=== PATIENT | female | born 1955 | race Caucasian/White ===

== ENCOUNTER 2019-06-21 08:41 | Emergency (ER) | payer OTHER, SELFPAY ==
--- NOTE | ~2019-06-21 | XR_ITS ---
XR chest 2V 06/21/2019 09:13 Indication: Chest tightness for 2 weeks Procedure: 2 view chest Comparison: Comparison to multiple prior studies sequentially, with oldest reviewed study dated 07/05. Findings: Bibasilar atelectasis. Elevated right diaphragm appears chronic. No focal pneumonia, edema or pneumothorax. No pleural effusion. Impression: 1: Bibasilar atelectasis. Reviewed, dictated and finalized at location B. TH CARE ATTORNEY Impression: 1: Bibasilar atelectasis.
[2019-06-21 08:44] VITALS: BP 150/76; PULSE 76; RESP 22; TEMP 36.2; O2SAT 98
--- NOTE | 2019-06-21 08:50 | ECG_ITS ---
Measurements Intervals [place] Rate: 76 P: 9 KS: 135 QRS: 12 QRSD: 89 T: -4 QT: 398 QTc: 449 Interpretive Statements SINUS RHYTHM ATRIAL PREMATURE COMPLEXES MINIMAL Q WAVES- LATERAL LEADS BORDERLINE ST-T WAVE ABNORMALITY- ANT/INF LEADS BASELINE ARTIFACT- V1 BORDERLINE ECG Electronically Signed On 06-21-2019 9:28:42 SURGICAL DRESSING MAKER by Sagar Juares D.O.
[2019-06-21 08:54] VITALS: PULSE 67
[2019-06-21] MEDS: ASPIRIN 81 MG CHEWABLE TABLET 324 MG PO (08:56)
[2019-06-21 08:59] LABS: Basophils Absolute Auto 0.1 K/mm3 (0.0-0.1); Basophils Percent Auto 0.4 % (0.2-1.2); Eosinophils Absolute Auto 0.1 K/mm3 (0-0.3); Eosinophils Percent Auto 0.7 % (0-4.4); Hematocrit 43.1 % (37.0-47.0); Hemoglobin 13.1 g/dL (12.0-15.0); Immature Granulocyte Absolute 0.05 K/mm3 (0.00-0.031); Immature Granulocyte Percent A 0.4 % (0-0.5); Lymphocytes Absolute Auto 4.09 K/mm3 (0.9-3.2); Lymphocytes Percent Auto 36.2 % (18.3-44.2); Mean Corpuscular HGB Conc 30.4 g/dl (32-36); Mean Corpuscular Hemoglobin 25.2 pg (26-34); Mean Corpuscular Volume 82.9 fl (80-100); Mean Platelet Volume 10.9 fl (7.4-10.4); Monocytes Absolute Auto 0.9 K/mm3 (0.1-0.6); Monocytes Percent Auto 8.2 % (2.6-8.5); Neutrophils Absolute Auto 6.1 K/mm3 (1.3-6.7); Neutrophils Percent Auto 54.1 % (45.5-73.1); Platelet Count Result 283 k/mm3 (150-375); Red Cell Distribution Width 14.7 % (11.5-14.5); White Blood Count 11.3 K/mm3 (4.5-10.0)
[2019-06-21 09:08] LABS: INR 1.7; Prothrombin Time 19.4 Seconds (11.1-14.7)
[2019-06-21 09:09] LABS: Partial Thromboplastin Time 30.9 SECONDS (22.3-36.8)
[2019-06-21 09:10] LABS: Blood Urea Nitrogen 15 mg/dL (7-17); Calcium 9.3 mg/dL (8.4-10.2); Carbon Dioxide 26 mmol/L (22-30); Chloride 99 mmol/L (98-107); Estimated CRCL calculation 78 ml/min; Estimated Glomerular Filt Rate > 60; Glucose 123 mg/dL (65-105); Potassium 3.9 mmol/L (3.4-5.0); Sodium 138 mmol/L (137-145)
[2019-06-21 09:21] LABS: Troponin I < 0.012 ng/mL (0.000-0.034)
--- NOTE | 2019-06-21 09:27 | ED.CHESTPAIN ---
HPI - Chest Pain General Chief Complaint: Chest Pain <ANGELO Greco Last Filed: 06/21/19 13:32> Stated Complaint: AFIB, CP <ANGELO Greco Last Filed: 06/21/19 13:32> Time Seen by Provider: 06/21/19 09:01 <ANGELO Greco Last Filed: 06/21/19 13:32> Source: patient <ANGELO Greco Last Filed: 06/21/19 13:32> Mode of arrival: ambulatory <ANGELO Greco Last Filed: 06/21/19 13:32> Limitations: no limitations <ANGELO Greco Last Filed: 06/21/19 13:32> History of Present Illness HPI narrative: This is a 63 year old female that presents to the ER for an episode of chest pressure this morning. Reports a history of atrial fibrillation and that over the last week she has had several Afib attacks . Reports episodes of palpitations, lightheadedness and shortness of breath. Reports another episode this morning while she was driving. Reports this morning she also had some chest pressure with it that last a couple minutes and prompted her to come be seen. Reports she has been seeing her refrigerator tester for this and is on a monitor. Denies fever, cold symptoms or current chest pain or shortness of breath. <ANGELO Greco Last Filed: 06/21/19 13:32> Related Data Home Medications: Home Medications Medication Instructions Recorded Confirmed atenolol 06/21/19 beclomethasone dipropionate [Qvar INHALATION 06/21/19 RediHaler] buspirone mg 06/21/19 hydrochlorothiazide 06/21/19 pantoprazole PO 06/21/19 06/21/19 rivaroxaban [Xarelto] mg 06/21/19 <ANGELO Greco Last Filed: 06/21/19 13:32> Allergies/Adverse Reactions: Allergies Allergy/AdvReac Type Severity Reaction Status Date / Time sertraline Allergy Unknown Other Verified 06/21/19 08:51 Grass Allergy Unknown UNKNOWN Uncoded 02/07/16 15:30 PAROXETINE HCL Allergy Unknown Unknown Uncoded 06/21/19 08:51 SERTRALINE HCL Allergy Unknown Other Uncoded 06/21/19 08:51 <Cathi Shine PA-C - Last Filed: 06/21/19 13:32> Review of Systems Review of Systems: Narrative: CONSTITUTIONAL: Denies fever ENT: Denies rhinorrhea, congestion, sore throat, or otalgia. CARDIOVASCULAR: Denies chest pain, palpitations RESPIRATORY: Denies cough or dyspnea. <Cathi Shine PA-C - Last Filed: 06/21/19 13:32> All systems reviewed & are unremarkable except as noted in HPI and below <Cathi Shine PA-C - Last Filed: 06/21/19 13:32> [facility] Past Medical History Medical History: Medical History (Updated 06/21/19 @ 13:29 by Cathi Shine PA-C) Gonzalez's esophagus without dysplasia Essential (primary) hypertension Generalized anxiety disorder History of asthma Impaired glucose tolerance Mixed hyperlipidemia Paroxysmal atrial fibrillation <Cathi Shine PA-C - Last Filed: 06/21/19 13:32> Family History Family History: Family History (Updated 02/06/16 @ 14:58 by DOCTOR UNKNOWN) Father Diabetes mellitus Sibling Patient's sister is in good health <Cathi Shine PA-C - Last Filed: 06/21/19 13:32> Social History Social History: Social History Smoking status: Never smoker Alcohol intake: current Gender identity (if verbalized by the patient): Female <Cathi Shine PA-C - Last Filed: 06/21/19 13:32> Exam Narrative: Exam Narrative: GENERAL: Well-appearing, well-nourished, and in no acute distress. HEAD: Normocephalic, atraumatic. EYES: EOMI. ENT: Nares clear, no rhinorrhea or epistaxis. Mucous membranes moist. Oropharynx without tonsillar hypertrophy exudate or other lesions. Bilateral TMs pearly avila non-bulging NECK: Supple. No adenopathy or masses. No carotid bruits or JVD CHEST: Clear to auscultation. No respiratory distress. No wheezes rales or rhonchi HEART: Regular rate and rhythm. No murmur heard. Normal peripheral pulses. EXTREMITIES: Normal range of motion. No edema. SKIN: Warm, dry, no rash. NEURO: No focal
[2019-06-21 10:48] VITALS: BP 98/87; PULSE 70; RESP 22; O2SAT 98
--- NOTE | 2019-06-21 11:45 | PC.NURSE ---
Pts mom stepped out of room and stated that pt was feeling anxious and wanted to take her own Buspar. This RN asked PA Cathi Shine and she stated that it was ok to take her own. Informed pt of this.
[2019-06-21 12:22] LABS: Troponin I < 0.012 ng/mL (0.000-0.034)
[2019-06-21 13:58] VITALS: BP 110/61; PULSE 71; O2SAT 100
== END 2019-06-21 14:00 | disposition home or self-care (01) ==
PROVIDERS: Emergency Provider Emergency Medicine; PCP Internal Medicine
DX: I48.0 Paroxysmal atrial fibrillation (principal); R07.89 Other chest pain; K22.70 Barrett's esophagus without dysplasia; I10 Essential (primary) hypertension; F41.1 Generalized anxiety disorder; J45.909 Unspecified asthma, uncomplicated; E78.2 Mixed hyperlipidemia; R91.8 Other nonspecific abnormal finding of lung field; Z79.01 Long term (current) use of anticoagulants; I49.1 Atrial premature depolarization; R94.31 Abnormal electrocardiogram [ECG] [EKG]
CPT/HCPCS: 36415; 71046; 80048; 84484; 85025; 85610; 85730; 93005; 99284; A9270

== ENCOUNTER 2019-11-10 09:54 | Outpatient (CLI) | payer OTHER, SELFPAY | END 2019-11-10 09:55 | disposition home or self-care (01) | PROVIDERS: PCP Internal Medicine; Visit Provider Internal Medicine | DX: R19.7 Diarrhea, unspecified (principal) | CPT/HCPCS: 87045; 87046; 87324; 87427; 87493 ==

== ENCOUNTER 2019-11-25 08:09 | Outpatient (CLI) | payer OTHER, SELFPAY ==
[2019-11-29 20:24] LABS: Fecal Fat, Ql Normal (Normal)
== END 2019-11-25 08:10 | disposition home or self-care (01) ==
LOC: ANHLAB 08:09
PROVIDERS: PCP Internal Medicine; Visit Provider Internal Medicine
DX: K75.81 Nonalcoholic steatohepatitis (NASH) (principal); I10 Essential (primary) hypertension; R19.7 Diarrhea, unspecified
CPT/HCPCS: 82705

== ENCOUNTER 2019-11-26 08:05 | Outpatient (CLI) | payer OTHER, SELFPAY ==
[2019-11-26 08:33] LABS: Alanine Aminotransferase 37 U/L (4-35); Alkaline Phosphatase 84 U/L (38-126); Aspartate Amino Transferase 36 U/L (14-36); Bilirubin,Total 0.5 mg/dL (0.2-1.3); Blood Urea Nitrogen 14 mg/dL (7-17); Calcium 9.1 mg/dL (8.4-10.2); Carbon Dioxide 24 mmol/L (22-30); Chloride 104 mmol/L (98-107); Cholesterol 187 mg/dL (0-200); Estimated Glomerular Filt Rate > 60; Glucose 125 mg/dL (65-105); HDL Direct 46 mg/dL; Sodium 135 mmol/L (137-145); Triglycerides 255 mg/dL (<150)
[2019-11-26 08:44] LABS: LDL Cholesterol Direct 92 mg/dL
[2019-11-26 11:15] LABS: Vitamin D 25 Hydroxy 38.3 ng/mL
== END 2019-11-26 08:06 | disposition home or self-care (01) ==
PROVIDERS: PCP Internal Medicine; Visit Provider Internal Medicine
DX: K75.81 Nonalcoholic steatohepatitis (NASH) (principal); I10 Essential (primary) hypertension; E55.9 Vitamin D deficiency, unspecified
CPT/HCPCS: 36415; 80053; 80061; 82306

== ENCOUNTER 2019-12-02 06:32 | Outpatient (CLI) | payer OTHER, SELFPAY ==
[2019-12-02 08:02] LABS: Hemoglobin A1C 5.9 % (<5.7)
== END 2019-12-02 06:33 | disposition home or self-care (01) ==
LOC: ANHLAB 06:34
PROVIDERS: PCP Internal Medicine; Visit Provider Internal Medicine
DX: R73.9 Hyperglycemia, unspecified (principal)
CPT/HCPCS: 36415; 83036

== ENCOUNTER → 2019-12-08 09:24 | Outpatient (CLI) | payer OTHER, SELFPAY ==
--- NOTE | ~2019-12-08 | MMUS_ITS ---
EXAMINATION: MM diagnostic jose BI w princess, US breast LT limited HISTORY: Left breast lump at 6:00 7 cm from nipple TECHNIQUE: ML, MLO and cc 3-D tomosynthesis images of both breasts were performed and synthetic 2-D i mages were generated. CAD analysis was submitted and interpreted. High resolution targeted left breas t ultrasound was performed. COMPARISON: 12/12/2016 bilateral digital screening mammogram examinations BREAST PARENCHYMAL COMPOSITION: There are scattered areas of fibroglandular density. FINDINGS: MAMMOGRAPHIC FINDINGS: No suspicious mass, architectural distortion, malignant calcification, skin thickening or retraction of either breast is detected. ULTRASOUND: No suspicious mass or shadowing or other significant sonographic abnormality is noted at the area of clinical complaint of left breast lump at 6:00 7 cm from nipple IMPRESSION: 1. No mammographic evidence of malignancy 2. Routine mammographic screening is recommended BI-RADS Category 1: Negative Reviewed, dictated and finalized at location A. IMPRESSION: 1. No mammographic evidence of malignancy 2. Routine mammographic screening is recommended BI-RADS Category 1: Negative
== END ==
PROVIDERS: Visit Provider Internal Medicine
DX: R92.8 Other abnormal and inconclusive findings on diagnostic imaging of breast (principal)
CPT/HCPCS: 76642; 77062; 77066; G0279

== ENCOUNTER 2020-03-01 10:26 | Emergency (ER) | payer OTHER, SELFPAY ==
[2020-03-01] VITALS (30 sets, daily range): BP systolic 126–168; BP diastolic 49–82; PULSE 79–101; RESP 12–29; O2SAT 83–99
--- NOTE | ~2020-03-01 | XR_ITS ---
EXAMINATION: XR abdomen/kub 1V EXAM DATE: 03/01/2020 12:08 INDICATION: gastroenteritis . TECHNIQUE: Frontal projection(s) of the abdomen for interpretation. There is no prior study for regine ramires. FINDINGS: There is expected amount of colonic stool and gas. No small bowel dilation, nonobstructiv e bowel gas pattern. There are no suspicious calcifications identified. There is no organomegaly suspected. The bones are unremarkable. IMPRESSION: Unremarkable abdomen x-ray exam. Reviewed, dictated and finalized at location A. CIAL COURT INTERPRETER
--- NOTE | 2020-03-01 11:15 | ED.GENADULT ---
HPI - General Adult General Chief complaint: Nausea/Vomiting/Diarrhea Stated complaint: FLU LIKE SYMPTOMS Time Seen by Provider: 03/01/20 10:47 Source: patient Limitations: no limitations History of Present Illness HPI narrative: 64 years old white female presents with multiple symptoms including nausea, vomiting, diarrhea, dizziness, chest tightness and stress. 5 days ago patient developed nausea, vomiting x2 and multiple spells of watery stool lasted for 12 hours then gradually getting better. Last vomiting 4 days ago, last loose stool this morning time once. The last 24 hours patient been feeling dizzy, chest tightness, panicky and anxious. Patient denies any respiratory symptoms, fever, chills, sore throat, exposure to anybody known having COVID-19. Patient lives with her mom who is asymptomatic. Currently patient main complaint is nausea and dizziness. History of hypertension, asthma, denies any smoking, drinks alcohol daily. Patient works from home Related Data Home Medications Medication Instructions Recorded Confirmed hydrochlorothiazide 06/21/19 rivaroxaban [Xarelto] mg 06/21/19 metoprolol tartrate 37.5 mg PO BID 03/01/20 pantoprazole PO 03/01/20 Allergies Allergy/AdvReac Type Severity Reaction Status Date / Time sertraline Allergy Unknown Other Verified 03/01/20 10:41 epinephrine AdvReac Other Verified 03/01/20 10:42 Grass Allergy Unknown UNKNOWN Uncoded 03/01/20 10:42 PAROXETINE HCL Allergy Unknown Unknown Uncoded 03/01/20 10:41 Review of Systems Review of Systems: Narrative: CONSTITUTIONAL: Denies fever, chills, or sweats. EYES: Denies visual changes, redness, or discharge. ENT: Denies rhinorrhea, congestion, sore throat, or otalgia. CARDIOVASCULAR: Denies chest pain, palpitations, or edema. RESPIRATORY: Denies cough or dyspnea. GASTROINTESTINAL: Denies abdominal pain, nausea, resolved vomiting and diarrhea GENITOURINARY: Denies dysuria or hematuria. SKIN: Denies rash or itching. MUSCULOSKELETAL: Denies back pain, joint pain, or myalgia. NEUROLOGIC: Denies headache, numbness, or weakness. PSYCHIATRIC: Denies anxiety or depression. [facility] Past Medical History Medical History (Updated 03/01/20 @ 14:13 by Jailene Guy MD) Gonzalez's esophagus without dysplasia Essential (primary) hypertension Generalized anxiety disorder History of asthma Impaired glucose tolerance Mixed hyperlipidemia Paroxysmal atrial fibrillation Family History Family History (Updated 02/06/16 @ 14:58 by DOCTOR UNKNOWN) Father Diabetes mellitus Sibling Patient's sister is in good health Social History Social History Smoking status: Never smoker Alcohol intake: current Gender identity (if verbalized by the patient): Female Exam Narrative: Exam Narrative: General appearance: Well-developed, well-nourished Skin: Normal color Head: Normocephalic, nontraumatic Eyes: Clear conjunctiva ENT: Oropharynx normal, ears normal, nose normal Neck: Supple, nontender Chest and respiratory: Airway patent, no respiratory distress, no accessory muscle use Heart: Regular rate/rhythm Abdomen: Soft, nontender, no organomegaly, quiet bowel sounds Vascular: Normal peripheral pulses, normal capillary refill. 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
[2020-03-01] MEDS: ONDANSETRON INJ 4 MG/2 ML VIAL IV PUSH (11:22)
[2020-03-01] MEDS: SODIUM CHLORIDE 0.9% IV 1,000 ML 999 ML IV CONT (11:23)
[2020-03-01 11:43] LABS: Basophils Percent Auto 0.4 % (0.2-1.2); Eosinophils Absolute Auto 0.1 K/mm3 (0-0.3); Eosinophils Percent Auto 0.6 % (0-4.4); Hematocrit 40.6 % (37.0-47.0); Hemoglobin 12.9 g/dL (12.0-15.0); Immature Granulocyte Absolute 0.07 K/mm3 (0.00-0.031); Immature Granulocyte Percent A 0.9 % (0-0.5); Lymphocytes Absolute Auto 1.87 K/mm3 (0.9-3.2); Lymphocytes Percent Auto 23.3 % (18.3-44.2); Mean Corpuscular HGB Conc 31.8 g/dl (32-36); Mean Corpuscular Hemoglobin 26.2 pg (26-34); Mean Corpuscular Volume 82.5 fl (80-100); Mean Platelet Volume 10.5 fl (7.4-10.4); Monocytes Absolute Auto 0.6 K/mm3 (0.1-0.6); Neutrophils Absolute Auto 5.4 K/mm3 (1.3-6.7); Neutrophils Percent Auto 67.8 % (45.5-73.1); Platelet Count Result 208 k/mm3 (150-375); Red Blood Count 4.92 M/mm3 (4.2-5.4); Red Cell Distribution Width 14.8 % (11.5-14.5)
[2020-03-01 11:51] LABS: Lipase 207 U/L (23-300)
[2020-03-01 11:52] LABS: Alanine Aminotransferase 52 U/L (4-35); Albumin Level 4.1 g/dL (3.5-5.1); Alkaline Phosphatase 83 U/L (38-126); Anion Gap 8 mmol/L (8-16); Aspartate Amino Transferase 53 U/L (14-36); Bilirubin,Total 0.4 mg/dL (0.2-1.3); Blood Urea Nitrogen 11 mg/dL (7-17); Calcium 9.6 mg/dL (8.4-10.2); Carbon Dioxide 32 mmol/L (22-30); Chloride 99 mmol/L (98-107); Estimated CRCL calculation 91 ml/min; Estimated Glomerular Filt Rate > 60; Glucose 125 mg/dL (65-105); Potassium 3.6 mmol/L (3.4-5.0); Sodium 139 mmol/L (137-145)
--- NOTE | 2020-03-01 12:34 | PC.NURSE ---
this RN at bedside. patient back from xray. urine collected. orthostatic vitals done. tolerated well.
[2020-03-01 12:44] LABS: Add Urine Microscopic? NO; Appearance Urine Clear (Clear); Bilirubin Urine Negative (Negative); Blood Urine Negative (Negative); Color Urine Straw (Yellow); Glucose Urine UA Negative (Negative); Ketones Urine Negative (Negative); Leukocyte Esterase Ur Negative LEU/UL (Negative); Nitrate Urine Negative (Negative); Protein Urine Negative (Negative); Specific Grav Ur 1.011 (1.001-1.035); Urobilinogen Urine Negative mg/dL (<2.0)
[2020-03-01 12:45] LABS: Bacteria Urine Trace /hpf; Mucus Urine Rare /lpf; RBC Urine 0-2 /hpf (0-2); Squamous Epithelial Cell Urine Occasional /hpf (Few)
--- NOTE | 2020-03-01 14:12 | PC.NURSE ---
resting on stretcher. talking on cell phone with friends and family during this ED stay. no distress noted. appears comfortable. waiting for further orders vs disposition from provider.
== END 2020-03-01 15:02 | disposition home or self-care (01) ==
PROVIDERS: Emergency Provider Emergency Medicine; PCP Internal Medicine
DX: K52.9 Noninfective gastroenteritis and colitis, unspecified (principal); I10 Essential (primary) hypertension; J45.909 Unspecified asthma, uncomplicated; Z79.01 Long term (current) use of anticoagulants; K22.70 Barrett's esophagus without dysplasia; E78.2 Mixed hyperlipidemia; I48.0 Paroxysmal atrial fibrillation
CPT/HCPCS: 36415; 74018; 80053; 81003; 83690; 85025; 96361; 96374; 99284; J2405; J7030

== ENCOUNTER 2020-03-02 09:14 | Outpatient (NON) | payer OTHER, SELFPAY ==
[2020-03-03 00:44] LABS: SARS-CoV-2 RNA PCR Negative
== END 2020-03-02 09:15 ==
LOC: ANHCOVIDDT 09:15
PROVIDERS: PCP Internal Medicine; Visit Provider Internal Medicine
DX: R68.89 Other general symptoms and signs (principal); Z20.828 Contact with and (suspected) exposure to other viral communicable diseases
CPT/HCPCS: 87635; C9803; U0003

== ENCOUNTER → 2020-05-29 10:45 | Outpatient (CLI) | payer OTHER, SELFPAY ==
--- NOTE | ~2020-05-29 | DEXA_ITS ---
Bone Density Report Name: Unique Marie Age: 64 Sex: Female Ethnicity: White Date of : 1955 Indication: postmenopausal; screening for osteoporosis; height loss; asthma or emphysema; Referring Provider: Mandie Madison Study: Bone densitometry was performed. Exam Date: May 29, 2020 Accession number: [id number] Bone Density: Region BMD T-score Z-score Classification AP Spine (L1-L4) 0.959 -0.8 0.9 Normal Femoral Neck (Left) 0.710 -1.3 0.2 Osteopenia Total Hip (Left) 0.946 0.0 1.2 Normal Femoral Neck (Right) 0.746 -0.9 0.5 Normal Total Hip (Right) 0.942 0.0 1.2 Normal Total Hip Mean 0.944 0.0 1.2 Normal World Health Organization criteria for BMD impression classify patients as: Normal (T-score at or above -1.0), Osteopenia (T-score between -1.0 and -2.5), or Osteoporosis (T-score at or below -2.5). 10-year Fracture Risk(1): Major Osteoporotic Fracture 7.5% Hip Fracture 0.6% Reported Risk Factors: [place] (), Neck BMD=0.710, BMI=34.5 (1) FRAX(R) Version 3.08. Fracture probability calculated for an untreated patient. Fracture probability may be lower if the patient has received treatment. Clinical Information Provided by Patient: Has used the following medications: Vitamin D Has the following medical conditions: Asthma or Emphysema Patient maximum height was 66.5 Menopause Age: 54 Drinks caffeinated beverages Onset of menses at age 17 Number of children 1 Impression: The patient has low bone mass, based on the Left Femoral Neck T-score. The patient has an estimated ten-year risk of hip fracture of 0.6% and an estimated ten-year risk of major fracture of 7.5%, based on the WHO FRAX algorithm. Discussion: BONE DENSITY IS LOW AT ONE OR MORE SKELETAL SITES. This patient's lowest T-score is low at one or more skeletal sites. It meets the World Health Organization's (WHO) criteria for ?low bone mass? (T-score between -1.0 and -2.5). The patient's 10-year risk of fracture as calculated by FRAX is less than the threshold where pharmacological therapy is recommended by the National Osteoporosis Foundation (NOF). However, all treatment decisions require clinical judgment and consideration of individual patient factors, including patient preferences, comorbidities, previous drug use, risk factors not captured in the FRAX model (e.g., frailty, falls, vitamin D deficiency, increased bone turnover, interval significant decline in bone density) and possible under or overestimation of fracture risk by FRAX. The patient should follow a healthful lifestyle (good nutrition with adequate calcium and vitamin D, and appropriate weight-bearing exercise). Follow-Up: Consider repeating this study in 2 to 3 years to reassess this patient's status, or sooner if there is some new clinical indicat
== END ==
PROVIDERS: Visit Provider Nurse Practitioner
DX: Z78.0 Asymptomatic menopausal state (principal); M85.852 Other specified disorders of bone density and structure, left thigh
CPT/HCPCS: 77080

== ENCOUNTER 2020-07-10 08:39 | Outpatient (CLI) | payer OTHER, SELFPAY | END 2020-07-10 08:40 | disposition home or self-care (01) | LOC: ANHAUDASC 08:41 | PROVIDERS: PCP Internal Medicine; Visit Provider Nurse Practitioner Family | DX: H90.3 Sensorineural hearing loss, bilateral (principal) | CPT/HCPCS: 92557; 92567 ==

== ENCOUNTER → 2021-01-19 14:54 | Outpatient (CLI) | payer OTHER, SELFPAY ==
--- NOTE | ~2021-01-19 | MM_ITS ---
EXAMINATION: MM screening [facility] BI w princess HISTORY: Screening TECHNIQUE: Craniocaudal and mediolateral oblique 3-D tomosynthesis images were obtained and synthetic 2-D images were generated. CAD analysis was submitted and interpreted. COMPARISON: Comparison to multiple prior studies sequentially, with oldest reviewed study dated 05/2015. BREAST PARENCHYMAL COMPOSITION: There are scattered areas of fibroglandular density. FINDINGS: There is no evidence of suspicious mass, calcification, or architectural distortion to sugg est malignancy in either breast. There has been no suspicious interval change. IMPRESSION: 1. No mammographic evidence of malignancy. 2. Recommend routine screening mammography in one year. BI-RADS Category 1: Negative Reviewed, dictated and finalized at location A.
== END ==
PROVIDERS: PCP Internal Medicine; Visit Provider Nurse Practitioner Obstetrics & Gynecology
DX: Z12.31 Encounter for screening mammogram for malignant neoplasm of breast (principal)
CPT/HCPCS: 77063; 77067

== ENCOUNTER → 2021-05-17 09:18 | Outpatient (CLI) | payer OTHER, SELFPAY ==
[2021-05-17 14:26] LABS: Influenza A QL RT-PCR Negative (Negative); Influenza B QL RT-PCR Negative (Negative); SARS-CoV-2 RNA PCR Negative
== END ==
PROVIDERS: PCP Internal Medicine; Visit Provider Nurse Practitioner
DX: R68.89 Other general symptoms and signs (principal); Z20.822 Contact with and (suspected) exposure to COVID-19
CPT/HCPCS: 87502; C9803; U0003; U0005

== ENCOUNTER → 2021-10-19 03:09 | Outpatient (CLI) | payer OTHER, SELFPAY ==
[2021-10-19 16:51] LABS: SARS-CoV-2 RNA PCR Negative
== END ==
PROVIDERS: PCP Internal Medicine; Visit Provider Internal Medicine
DX: R68.89 Other general symptoms and signs (principal); Z20.822 Contact with and (suspected) exposure to COVID-19
CPT/HCPCS: C9803; U0003; U0005

== ENCOUNTER 2021-12-06 09:12 | Outpatient (CLI) | payer OTHER, SELFPAY ==
--- NOTE | 2021-12-11 07:58 | WPDHOLTEREM ---
Holter/Event Monitor Holter/Event Monitor Date of procedure: 12/06/21 Holter/Event Procedure: 48 Hr Holter Monitor Indications: PAF Conclusion: 1. 48 hour holter monitor on 12/06/21. 2. Predominant rhythm is sinus rhythm. HR range 57-188 bpm; average HR 92 bpm. HR at 188 bpm was in atrial fibrillation at 18:56. 3. There are 74 premature supraventricular complexes and 4 supraventricular couplets. There are 56 episodes of atrial fibrillation with a burden of 36%. 4. There are 430 premature ventricular complexes and 4 ventricular couplets. No ventricular tachycardia. 5. No sinoatrial or atrioventricular blocks. No significant pauses greater than 2 seconds. 6. No symptoms available for correlation.
== END 2021-12-06 09:13 | disposition home or self-care (01) ==
LOC: ANHCARD 09:14
PROVIDERS: PCP Internal Medicine; Visit Provider Internal Medicine
DX: I48.0 Paroxysmal atrial fibrillation (principal)
CPT/HCPCS: 93225; 93226

== ENCOUNTER → 2022-04-29 10:13 | Outpatient (CLI) | payer OTHER, SELFPAY ==
--- NOTE | ~2022-04-29 | MM_ITS ---
EXAMINATION: MM screening jose BI w princess HISTORY: Screening mammogram TECHNIQUE: Craniocaudal and mediolateral oblique 3-D tomosynthesis images were obtained and synthetic 2-D images were generated. CAD analysis was submitted and interpreted. COMPARISON: 01/19/2021 bilateral screening mammogram 12/08/2019 diagnostic bilateral mammogram and limited left breast ultrasound examination.. 02/10/2019 bilateral screening mammogram BREAST PARENCHYMAL COMPOSITION: There are scattered areas of fibroglandular density. FINDINGS: Scattered bilateral benign calcifications. There is no evidence of suspicious mass, calcifi cation, or architectural distortion to suggest malignancy in either breast. There has been no suspici ous interval change. IMPRESSION: 1. No mammographic evidence of malignancy. 2. Recommend routine screening mammography in one year. BI-RADS Category 1: Negative Reviewed, dictated and finalized at location A. DEVELOPMENT ENGINEER
== END ==
PROVIDERS: PCP Internal Medicine; Visit Provider Internal Medicine
DX: Z12.31 Encounter for screening mammogram for malignant neoplasm of breast (principal)
CPT/HCPCS: 77063; 77067

== ENCOUNTER → 2023-04-30 12:48 | Outpatient (CLI) | payer MEDICARE, SELFPAY ==
--- NOTE | ~2023-04-30 | MM_ITS ---
EXAMINATION: MM screening [facility] BI w princess HISTORY: Screening mammogram TECHNIQUE: Craniocaudal and mediolateral oblique 3-D tomosynthesis images were obtained and synthetic 2-D images were generated. CAD analysis was submitted and interpreted. COMPARISON: 04/29/2022, 01/19/2021, 12/08/2019, 02/10/2019 BREAST PARENCHYMAL COMPOSITION: There are scattered areas of fibroglandular density. FINDINGS: No suspicious mass, calcification, or architectural distortion are identified in either luis ast to suggest malignancy. There has been no suspicious interval change. IMPRESSION: 1. No mammographic evidence of malignancy. 2. Recommend routine screening mammography in one year. BI-RADS Category 1: Negative Reviewed, dictated and finalized at location A. CASTING OPERATOR
== END ==
PROVIDERS: PCP Family Medicine; Visit Provider Family Medicine
DX: Z12.31 Encounter for screening mammogram for malignant neoplasm of breast (principal)
CPT/HCPCS: 77063; 77067

== ENCOUNTER 2024-05-03 10:35 | Outpatient (CLI) | payer MEDICARE, SELFPAY ==
--- NOTE | ~2024-05-03 | MM_ITS ---
EXAMINATION: MM screening [facility]ose BI w princess HISTORY: Screening mammogram TECHNIQUE: Craniocaudal and mediolateral oblique 3-D tomosynthesis images were obtained and synthetic 2-D images were generated. CAD analysis was submitted and interpreted. COMPARISON: 04/30/2023, 04/29/2022, 01/19/2021 BREAST PARENCHYMAL COMPOSITION:Not Dense. The breasts are almost entirely fatty FINDINGS: No suspicious mass, calcification, or architectural distortion are identified in either luis ast to suggest malignancy. There has been no suspicious interval change. IMPRESSION: No mammographic evidence of malignancy. Recommend routine screening mammography in one year. BI-RADS Category 1: Negative Reviewed, dictated and finalized at location . RUMENT MAN
== END 2024-05-03 10:36 | disposition home or self-care (01) ==
LOC: MICIMG 10:39
PROVIDERS: PCP Family Medicine; Visit Provider Family Medicine
DX: Z12.31 Encounter for screening mammogram for malignant neoplasm of breast (principal)
CPT/HCPCS: 77063; 77067

== ENCOUNTER 2024-07-06 16:35 | Outpatient (CLI) | payer MEDICARE, SELFPAY ==
--- NOTE | ~2024-07-06 | XR_ITS ---
HISTORY: M54.10 - Radiculopathy, site unspecified COMPARISON: None. TECHNIQUE: 3 view lumbar spine. FINDINGS: Lumbar vertebral bodies are normally aligned. There are 5 non-rib bearing lumbar vertebral bodies. Disc space narrowing is identified within the lower lumbar spine at the levels of L2/L3, L3/L4, L4/L5 and L5/S1. Vertebral body heights are well maintained. Facet arthropathy is also noted. There are no lytic or sclerotic lesions. Paraspinal soft tissues are unremarkable IMPRESSION: Significant degenerative disease, without acute fracture. Degenerative disease is most severe at the level of L5/S1. Reviewed, dictated and finalized at location A.
--- OUTSIDE RECORDS SUMMARY | 2024-07-06 17:58 | XMS_ITS | Referral Summary ---
Author Organization [facility] [address] Address [address] [place] [address] Care Team Providers Care Special Systems Technician Name Role Phone Chente Meredith MD Unavailable [phone] Shyanne Ramos MD Unavailable Pranay Klein MD Primary Care Provider [phone] Encounters Date Type Department Care Team Description 06/21/2024 10:00 AM EMERGENCY WORKER Office Visit [facility] at [address] [address] [place], [place] Acute right-sided low back pain with sciatica, sciatica laterality unspecified (Primary Dx) from Last 3 Months Allergies Active Allergy Reactions Criticality Noted Date Comments Amoxicillin Other (See comments) Medium 10/03/2008 DISTAL ESOPHAGEAL BURNING Epinephrine Unknown 10/12/2020 Lidocaine Palpitations Low 05/11/2023 Pt has allergy/intolerance to lidocaine as she states she has used it in the past at a dentist appointment and it made her brain foggy and made her heart beat fast she had to call 911, afib was not present, but symptoms lasted for several hours after. Paroxetine Palpitations Low 03/24/2008 LOW BP Sertraline Other (See comments) Low 03/24/[address] (PROTONIX) 40 mg EC tablet take 1 tablet by oral route every day 30 5 6 Active ALPRAZolam (XANAX) 0.25 mg tablet take 1 tablet by oral route 3 times every day prn anxiety 30 2 6 Active fluticasone (FLONASE) 50 mcg/actuation nasal spray Administer 1 spray into each nostril 2 (two) times a day as needed Active busPIRone (BUSPAR) 5 mg tabletIndications :Generalized Anxiety Disorder Take 1 tablet (5 mg total) by mouth 4 (four) times a day Active beclomethasone (QVAR) 80 mcg/actuation inhaler Inhale 1 puff 2 (two) times a day Rinse mouth with water after use to reduce aftertaste and incidence of candidiasis. Do not swallow. Active acyclovir (ZOVIRAX) 800 mg tablet Take 1 tablet (800 mg total) by mouth daily as needed 0 Active valACYclovir (VALTREX) 500 mg tablet Take 1 tablet (500 mg total) by mouth every 12 (twelve) hours 2 Active albuterol HFA (PROVENTIL HFA,VENTOLIN HFA,PROAIR HFA) 90 mcg/actuation inhaler INHALE 2 PUFFS BY MOUTH EVERY 4 TO 6 HOURS NEEDED FOR SHORTNESS OF BREATH OR WHEEZING 2 Active ergocalciferol (VITAMIN D) 50,000 unit capsule Take 1 capsule (50,000 Units total) by mouth once a week 3 Active metoprolol tartrate (LOPRESSOR) 25 mg immediate release tablet TAKE 1 TABLET TWICE A DAY 180 tablet 2 4 Active flecainide (TAMBOCOR) 100 mg tabletIndications :Paroxysmal atrial fibrillation (HCC) Take 1 tablet (100 mg total) by mouth 2 (two) times a day 180 tablet 4 Active hydroCHLOROthiazi de (HYDRODIURIL) 25 mg tablet Take 1 tablet (25 mg total) by mouth daily 90 tablet 1 4 Active metoprolol (LOPRESSOR) 100 mg tablet Take 1 tablet (100 mg total) by mouth 2 (two) times a day 180 tablet 3 4 Active rivaroxaban (Xarelto) 20 mg tablet Take 1 tablet (20 mg total) by mouth daily 30 tablet 5 Active predniSONE (DELTASONE) 20 mg tablet TAKE 2 TABLETS BY MOUTH DAILY FOR 5 DAYS 5 Active doxycycline hyclate 100 mg capsule TAKE 1 CAPSULE BY MOUTH TWICE DAILY FOR 10 DAYS 5 Active cyclobenzaprine (FLEXERIL) 5 mg tabletIndications :Acute right-sided low back pain with sciatica, sciatica laterality unspecified Take 1 tablet (5 mg total) by mouth 3 (three) times a day as needed for muscle spasms 30 tablet 5 08/21/19 25 Active Active Problems Problem Noted Date Diagnosed Date Hyperlipidemia 12/12/2023 Chronic fatigue 12/18/2022 Enthesopathy of hip region 04/16/2022 Lesion of ulnar nerve 04/16/2022 Low back pain 04/16/2022 BMI 31.0-31.9,adult 10/12/2020 SINGH on CPAP 10/12/2020 Sensation of fullness in ear 08/21/2020 Adenomatous polyps 01/31/2020 Overview (01/31/2020): Added automatically from request for surgery [id number] Gastric polyps 01/31/2020 Overview (01/31/2020): Added automatically from request for surgery [id number] Chest pain 07/27/2019 Adenomatous polyp 04/07/2019 Overview (04/07/2019): Added automatically from request for surgery [id number] PAT (paroxysmal atrial tachycardia) 11/13/2016 Palpitations 11/13/2016 Premature atrial contractions 11/13/2016 Essential hypertension 11/13/2016 Assessment & Plan (06/30/2019 2:00 PM CDT): Blood pressure is well controlled. Continue same therapy. Continue diet and exercise. Alcohol use 03/06/2016 Overview (07/25/2016): ETOH abuse Paroxysmal atrial fibrillation 03/06/2016 Overview (07/25/2016): Paroxysmal atrial fibrillation Assessment & Plan (07/23/2023 9:35 AM CDT): Stable, very well controlled on flecainide. ECG reviewed today, acceptable for continued use of flecainide. I encouraged efforts at weight loss. --Continue flecainide 100 mg BID --Continue metoprolol 25 mg BID --Continue Xarelto 20 mg daily Assessment & Plan (01/22/2023 3:58 PM CDT): Doing very well, minimal AF burden. --Continue flecainide 100 mg BID --Continue metoprolol 125 mg BID --Continue Xarelto 20 mg daily Assessment & Plan (03/26/2022 10:52 AM EMERGENCY WORKER): Highly symptomatic atrial fibrillation with high arrhythmia burden. Severely impacting QOL. Poorly responsive to low dose flecainide. Occurring in context of structurally normal heart. I reviewed management options in detail with her. Given her ongoing severe symptoms, I offered catheter ablation to optimize her chances that durable rhythm control. We also discussed increasing flecainide dose versus alternative antiarrhythmic drug therapy. She is very interested in ablation, however would like to wait until after she retires in the spring. For now, she would like to increase her flecainide dose. I reviewed the procedural steps, risks/benefits, expected outcomes and recovery regarding AF ablation. She understands and wishes to proceed. [id number] = 3. Anticoagulation is indicated. --Will arrange for atrial fibrillation ablation w/anesthesia (in June). --Increase flecainide to 100 mg BID --12-lead ECG in 1 week. --Continue metoprolol 125 mg BID. --Continue Xarelto 20 mg daily. Hold starting the day prior to ablation. Assessment & Plan (06/30/2019 1:59 PM CDT): The patient has a history of paroxysmal atrial fibrillation with recent increasing frequency and duration. She remains on metoprolol and is on anticoagulation with Xarelto. I made no change in her excellent medical regimen today. I recommended electrophysiology evaluation for further management of her PAF, and she is in agreement of a with this approach. Further recommendations will await these results. I asked her to follow up with me on an as-needed basis only. She will continue to follow up with her regular kettle worker. Adiposity 03/06/2016 Overview (07/25/2016): Obesity (BMI 30.0-34.9) Pre-syncope 03/06/2016 Overview (07/25/2016): Near syncope Chronic anticoagulation 03/06/2016 Overview (07/25/2016): Chronic anticoagulation Preoperative state 02/13/2016 Overview (07/25/2016): Preoperative cardiovascular examination Entrapment neuropathy of upper extremity 016 Overview (07/25/2016): Nerve entrapment syndrome of left upper extremity Gastric polyp 01/19/2015 History of colonic polyps 01/19/2015 Right upper quadrant abdominal pain 11/30/2014 History of gastrointestinal disease 06/27/2014 Overview (07/25/2016): History of Gonzalez's esophagus Anxiety 06/27/2014 Overview (07/25/2016): Anxiety Asthma 06/27/2014 Overview (07/25/2016): Asthma Neuropathy 06/27/2014 Overview (07/25/2016): Neuropathy Cough 05/27/2014 Hiatal hernia 05/27/2014 Gonzalez's esophagus 01/07/2012 Panic disorder 10/03/2008 GERD (gastroesophageal reflux disease) 9 Immunizations Immunization Administration Dates Next Due Influenza, Quadrivalent, Split, Intramuscular Influenza, Trivalent, Recomb inant, Egg Free, Preservative Free, Antibiotic Free, IM (FLUBLOK) 12/20/2013 Tdap 04/21/2010 Social History Tobacco Use Types Packs/Day Years Used Date Smoking Tobacco: Never Smokeless Tobacco: Never Tobacco Cessation:Counseling Given: Not Answered Alcohol Use Standard Drinks/Week Comments Yes 7 (1 standard drink = 0.6 oz pur e alcohol) social AUDIT-C Answer Date Recorded Q1: How often do you have a drink containing alc ohol? 2-3 times a week 12/21/2020 Q2: How many drinks containi ng alcohol do you have on a typical day when you are drinking? 1 or 2 12/21/2020 Frequency of Binge Drinking Not on file 05/2020 Comments No Sex and Gender Information Value Date Recorded Sex Assigned at Not on file Legal Sex Female 11:36 PM EMERGENCY WORKER Gender Identity Not on file Sexual Orientation Not on file Last Filed Vital Signs Vital Sign Reading Time Taken Comments Blood Pressure 136/84 06/21/2024 10:02 AM EMERGENCY WORKER Pulse 55 06/21/2024 10:02 AM EMERGENCY WORKER Temperature 36.6 C (97.8 F) 06/21/2024 10:02 AM EMERGENCY WORKER Respiratory Rate 28 06/21/2024 10:02 AM EMERGENCY WORKER Oxygen Saturation 98% 06/21/2024 10:02 AM EMERGENCY WORKER Inhaled Oxygen Concentration - - Weight 89.4 kg (197 lb) 06/21/2024 10:02 AM EMERGENCY WORKER Height 165.1 cm (5' 5 ) 03/09/2024 12:44 PM EMERGENCY WORKER Body Mass Index 32.78 03/09/2024 12:44 PM EMERGENCY WORKER Plan of Treatment Not on file Procedures Procedure Name Priority Date/Time Associated Diagnosis Comments COLONOSCOPY 12/21/2020 9:20 AM CDT SERUM HEPATITIS PANEL Routine 10/06/2015 7:58 AM CDT from Last 3 Months or Most Recently Relevant to Health Maintenance Results * COLONOSCOPY (12/21/2020 9:20 AM CDT) Anatomical Region Laterality Modality Other Narrative Procedure Note Early, Patti Pinzon MD - 12/21/2020 9:20 AM CDT [facility] Patient Name: Unique Marie Procedure Date: 12/21/2020 9:20 AM Date of : 1955 Admit Type: Outpatient Age: 65 Gender: Female Attending MD: Patti Burris M.D. Room: [facility] ENDOSCOPY ROOM 9 Note Status: Finalized Procedure: Colonoscopy Indications: Surveillance: Personal history of adenomatouspolyps on last colonoscopy > 5 years ago, Lastcolonoscopy: October 2015 Referring MD: Gallo Manzano D.O. Providers: Patti Burris M.D. Medicines: Monitored Anesthesia Care Complications: No immediate complications. Estimated Blood Loss: Estimated blood loss: none. Procedure: Pre-Anesthesia Assessment: - Immediately prior to administration ofmedications, the patient was re-assessed for adequacy to receive sedatives. - The risks and benefits of the procedure and the sedation options and risks were discussed with the patient. All questions were answered and informed consent was obtained. The benefits, risks and alternatives of theprocedure and sedation were discussed and informed consentwas obtained. All questions were answered. Please referto the signed informed consent document in the medical record. The scope was passed under direct vision.The [id number] endoscope was introduced through the anus and advanced to the cecum, identified by appendiceal orifice and ileocecal valve. The colonoscopy was performed without difficulty. The patient tolerated the procedure well. The qualityof the bowel preparation was evaluated using the BBPS ([place] Bowel Preparation Scale) with scores of:Right Colon = 3, Transverse Colon = 3 and Left Colon = 3 (entire mucosa seen well with no residual staining, small fragments of stool or opaque liquid). Thetotal BBPS score equals 9. The bowel preparation used was polyethylene glycol (PEG) via split doseinstruction. The quality of the bowel preparation wasexcellent. Findings: A few small-mouthed diverticula were found in the entire colon. Two sessile polyps were found in the descending colon. The polypswere 3 mm in size. These polyps were removed with a jumbo cold forceps. Resection and retrieval were complete. There was a small lipoma, in the ascending colon. Impression: - Diverticulosis in the entire examined colon. - Two 3 mm polyps in the descending colon, removed with a jumbo cold forceps. Resected andretrieved. - Small lipoma in the ascending colon. Recommendation: - Repeat colonoscopy in 5-10 years for surveillance based on pathology results. - We performed biopsies during your proceduretoday. If you do not receive a phone call from my officewith your biopsy results in 7 days, please contact my office at [phone]. Attending Participation: I personally performed the entire procedure. Electronically signed by Patti Burris MD Patti Burris M.D. 12/21/2020 10:13:33 AM . Number of Addenda: 0 Note Initiated On: 12/21/2020 9:20 AM Recognized by the [place] [employer] for promoting quality in endoscopy us Patti Burris MD ENDOSCOPY PROCEDURES Final Res ult * Serum Hepatitis panel (10/06/2015 7:58 AM CDT) HAV ab, IgM Negative Negative HISTORIC AL RESULTS HBV surface ag Negative Negative HISTO RICAL RESULTS HBV core ab, IgM Negative Negative HIS TORICAL RESULTS HCV ab 0.1 0.0 - 0.9 HISTORICAL RESULTS Comment: Negative: < 0.8 Indeterminate: 0.8 - 0.9 Positive: > 0.9 . The CDC recommends that a positive HCV antibody result be followed up with a HCV Nucleic Acid Amplification test (067367). Serum 10/06/2015 7:58 AM CDT us Historical Provider LAB BLOOD ORDERABLES Milady willson Result HISTORICAL RESULTS from Last 3 Months or Most Recently Relevant to Health Maintenance Insurance MEDICARE [facility] MEDICARE [facility] [place] [address] [facility] Member Subscriber Plan / Payer (Ef fective 2022-Present) Name:Unique Marie Relation to Subscriber:Self Name:Unique Marie Payer ID:[id number] Group ID:Not on file Type:COMMERCIAL Address: [facility] [address] [id number] Advance Directives For more information, please contact: [phone] * Full Code (Latest Code Status on File) Date Activated Date Inactivated Comments 12/21/2020 8:21 AM 12/21/2020 3:20 PM Care Teams Special Systems Technician Relationship Specialty Start Date End Date Pranay Klein MD [address] [place] [address] PCP - General Family Practice 12/18/22 Chente Meredith MD Consulting Physician Cardiology 10/12/20 Shyanne Ramos MD [address] [place] [address] Consulting Physician Otolaryngology 10/12/20
--- OUTSIDE RECORDS SUMMARY | 2024-07-06 17:58 | XMS_ITS | Clinical Summary ---
Author Organization [facility] [address] [facility] [address] [place] [address] Care Team Providers Care Jewel Hole Gauger Name Role Phone Chente Meredith MD Unavailable [phone] Shyanne Ramos MD Unavailable Pranay Klein MD Primary Care Provider [phone] Allergies Active Allergy Reactions Criticality Noted Date [...] (01/31/2020): Added automatically from request for surgery [id number] Gastric polyps 01/31/2020 Overview (01/31/2020): Added automatically from request for surgery [id number] Chest pain 07/27/2019 Adenomatous polyp 04/07/2019 Overview (04/07/2019): Added automatically from request for surgery [id number] PAT (paroxysmal atrial tachycardia) 11/13/2016 Palpitations 11/13/2016 [...] daily Assessment & Plan (03/26/2022 10:52 AM PRODUCT SUPPORT SALES REPRESENTATIVE): Highly symptomatic atrial fibrillation with high arrhythmia [...] ablation. She understands and wishes to proceed. [id number] = 3. Anticoagulation is indicated. --Will arrange [...] continue to follow up with her regular windows software engineer. Adiposity 03/06/2016 Overview (07/25/2016): Obesity (BMI 30.0-34.9) [...] disorder 10/03/2008 GERD (gastroesophageal reflux disease) 9 Encounters Date Type Department Care Team Description 06/21/2024 10:00 AM PRODUCT SUPPORT SALES REPRESENTATIVE Office Visit [facility] at [address] [address] [place], [place] Acute right-sided low back pain with sciatica, sciatica laterality unspecified (Primary Dx) from Last 3 Months Immunizations Immunization Administration Dates Next Due Influenza, Quadrivalent, Split, Intramuscular Influenza, Trivalent, Recomb inant, Egg Free, Preservative Free, Antibiotic Free, IM (FLUBLOK) 12/20/2013 Tdap 04/21/2010 Surgical History Surgery Date Site/Laterality Comments REDUCTION MAMMOPLASTY Breast Reduction KNEE ARTHROSCOPY Arthroscopy knee BREAST SURGERY Breast reduction COLONOSCOPY UPPER GASTROINTESTINAL ENDOSCOPY Medical History Medical History Date Comments Asthma 1980 Asthma; Comments : KISHOR 06/27/2014 - Neuropathy 2012 Neuropathy; Comm ents: KISHOR 06/27/2014 - Gonzalez's esophagus 1998 Barretts eso phagitis; Comments: KISHOR 06/27/2014 - Last Upper GI 2014- Normal Anxiety disorder 1994 Anxiety Atrial fibrillation (HCC) Sleep apnea Colon polyp GERD (gastroesophageal reflux disease) Dysphagia Chronic diarrhea Hypertension Cancer (HCC) hx skin cancer Family History Medical History Relation Name Comments Alzheimer's disease Father Ángel Alzheime r's disease; Diabetes Father Ángel Diabetes mellit us; Heart disease Father Ángel Cardiovascular disease; Other Father Ángel Blood disorder; Other Mother Genetic disease ; Stomach cancer Other Aunt Thyroid cancer Sister Relation Name Status Comments Father Ángel Mother Other Aunt Other Fathers side Sister Social History Tobacco Use Types Packs/Day Years [...] on file Legal Sex Female 11:36 PM PRODUCT SUPPORT SALES REPRESENTATIVE Gender Identity Not on file Sexual Orientation Not on file Obstetrics History Last Filed Vital Signs Vital Sign Reading Time Taken Comments Blood Pressure 136/84 06/21/2024 10:02 AM PRODUCT SUPPORT SALES REPRESENTATIVE Pulse 55 06/21/2024 10:02 AM PRODUCT SUPPORT SALES REPRESENTATIVE Temperature 36.6 C (97.8 F) 06/21/2024 10:02 AM PRODUCT SUPPORT SALES REPRESENTATIVE Respiratory Rate 28 06/21/2024 10:02 AM PRODUCT SUPPORT SALES REPRESENTATIVE Oxygen Saturation 98% 06/21/2024 10:02 AM PRODUCT SUPPORT SALES REPRESENTATIVE Inhaled Oxygen Concentration - - Weight 89.4 kg (197 lb) 06/21/2024 10:02 AM PRODUCT SUPPORT SALES REPRESENTATIVE Height 165.1 cm (5' 5 ) 03/09/2024 12:44 PM PRODUCT SUPPORT SALES REPRESENTATIVE Body Mass Index 32.78 03/09/2024 12:44 PM PRODUCT SUPPORT SALES REPRESENTATIVE Plan of Treatment Health Maintenance Due Date Last Done Comments Depression Screening 1955 Hepatitis B Screening 1974 Pneumococcal vaccine 65+ (2 of 2 - PCV) 04/21/1997 04/21/1996 Zoster Vaccine (1 of 2) 2006 Osteoporosis Screening-Bone Density Scan 01/31/2012 01/30/2010 Breast Cancer Screening-Mammogram 11/20/2016 11/21/2015, 11/14/2014, 11/08/2013, Additional history exists DTaP/Tdap/Td Vaccine (3 - Td or Tdap) 04/21/2020 04/21/2010, 12/21/2009 Well Visit 65+ 2021 Fall Risk Assessment 12/21/2021 12/21/2020 Covid-19 Vaccine (3 - 2023-2 5 season) 2023 06/02/2020, 05/12/2020 Influenza Vaccine (#1) 2023 , 12/20/2013, 05/04/2012 Colon Cancer Screening-Colonoscopy 12/21/2030 12/21/2020, 11/16/2015 Hepatitis C Screening Completed 10/06/2015 Colon Cancer Screening-CT Colonography Discontinued 12/21/2020, 11/16/2015 Colon Cancer Screening-DNA Stool Discontinued 12/22/19, 11/16/2015 Colon Cancer Screening-FIT Discontinued 12/21/2020, Colon Cancer Screening-Sigmoidoscopy Discontinued 12/21/2020, 11/16/2015 Procedures Procedure Name Priority Date/Time Associated Diagnosis [...] Female Attending MD: Patti Burris M.D. Room: [facility] ENDOSCOPY ROOM 9 Note Status: Finalized [...] The scope was passed under direct vision.The [id number] endoscope was introduced through the anus and advanced to the cecum, identified by appendiceal orifice and ileocecal valve. The colonoscopy was performed without difficulty. The patient tolerated the procedure well. The qualityof the bowel preparation was evaluated using the BBPS ([place] Bowel Preparation Scale) with scores of:Right Colon [...] 7 days, please contact my office at [phone]. Attending Participation: I personally performed the entire procedure. Electronically signed by Patti Burris MD Patti Burris M.D. 12/21/2020 10:13:33 AM . Number of Addenda: 0 Note Initiated On: 12/21/2020 9:20 AM Recognized by the [place] [employer] for promoting quality [...] with a HCV Nucleic Acid Amplification test ([id number]). Serum 10/06/2015 7:58 AM CDT us Historical Provider LAB BLOOD ORDERABLES Milady willson Result HISTORICAL RESULTS from Last 3 Months or Most Recently Relevant to Health Maintenance Insurance MEDICARE [facility] MEDICARE [facility] MEDICARE [facility] Advance Directives For more information, please contact: [phone] * Full Code (Latest Code Status on File) Date Activated Date Inactivated Comments 12/21/2020 8:21 AM 12/21/2020 3:20 PM Care Teams Jewel Hole Gauger Relationship Specialty Start Date End Date Pranay Klein MD [address] [place] [address] PCP - General Family Practice 12/18/22 Chente Meredith MD Consulting Physician Cardiology 10/12/20 Shyanne Ramos MD [address] [place] [address] Consulting Physician Otolaryngology 10/12/20
--- OUTSIDE RECORDS SUMMARY | 2024-07-06 17:58 | XMS_ITS | Clinical Summary ---
Author Organization [facility] Address [address] [place] [address] Care Team Providers Care Tripoler Name Role Phone Koffi Sharma MD Unavailable [phone] Kathy House MD Primary Care Provider [phone] Patti Burris MD Unavailable [phone] Source Comments [facility],non-owned Affiliates and Associated Physician Practices is amultiple site organization consisting of ambulatory clinics and hospital sitesin [place], [place], [place] and [place]. This disclosure is being madepursuant to the Care Everywhere program and may not contain all information available regarding this patient. Last updated 18.[facility] Allergies Active Allergy Reactions Criticality Noted Date Comments Amoxicillin 10/03/2008 DISTAL ESOPHAGEAL BURNING Paroxetine 03/24/2008 LOW BP Zoloft 03/24/2008 DEPRESSION Medications * Be aware that medications may not be up to date on this document. Alwaysverify current medications with the patient. Medication Sig Dispensed Refills Start Date End Date Status MULTI-VITAMIN PO Take by mouth daily. Active fish oil/omega-3 fatty acids (FISH OIL) 1000 MG capsule Take 1000 mg by mouth 3 times daily. Active atenolol (TENORMIN) 25 MG tabletIndications:Pa chante disorder Take 0.5 Tabs by mouth daily. 15 Tab 11 05/15/2010 Active famciclovir (FAMVIR) 500 MG tabletIndications:HS V infection Take 3 Tabs by mouth once as needed (at earliest hint of cold sore coming, 3 pills, one dose only.) for 1 dose. 12 Tab 0 07/31/2010 Active esomeprazole (NEXIUM) 40 MG capsuleIndications:G ERD (gastroesophageal reflux disease),Barretts esophagus Take by mouth. before supper 30 Cap 11 07/31/2010 Active fluticasone propionate (FLONASE) 50 MCG/ACT nasal sprayIndications:Ast hma Penrose 2 Sprays into each nostril daily. 16 g 11 07/31/2010 Active beclomethasone dipropionate (QVAR) 80 MCG/ACT inhalerIndications:A sthma Inhale 2 Puffs by mouth 2 times daily. 1 Inhaler 11 07/31/2010 Active busPIRone (BUSPAR) 5 MG tablet TAKE ONE TABLET BY MOUTH TWICE DAILY 60 Tab 5 02/04/2012 Active Additional Information Patient taking differently: take 1.5 tablets by mouth twice daily, Reported on 07/03/2015 Active Problems Problem Noted Date Diagnosed Date History of colon polyps 11/21/2015 Overview (11/21/2015): Tubular adenoma only 11/16/2015, Dr. Patti Burris, [facility] Palpitations 02/07/2011 Barretts esophagus 12/21/2009 Overview (07/31/2010): Better on follow up endoscopy; Other abnormality found in stomach by Dr. Patti Burris. Pt not aware of details and I don't have the records. To repeat EGD 2011 Panic disorder 10/03/2008 GERD (gastroesophageal reflux disease) 9 HH (hiatus hernia) 10/03/2008 Asthma 03/24/2008 Resolved Problems Problem Noted Date Diagnosed Date Resolved Date Screening for condition 03/24/200801/19 Overview (01/19/2015): Adult Abstraction Problem List Screening Pap Smear: Result: 11/17/2007 Mammogram: Result: 06/1999, 06/2000 NEGATIVE, 08/2004 NEGATIVE, 09/2006 NEGATIVE, 09/24/2007 Immunizations Name Administration Dates Next Due PNEUMOCOCCAL PPSV23 04/21/1996 TDAP (7yrs+) 12/21/2009 Family History Medical History Relation Name Comments Diabetes Father Heart Disease Father Heart Failure Father 79 yo now Heart Disease Maternal Grandfather Heart Failure Maternal Grandfather CAD ag e not sure Cancer - Breast Maternal Grandmother Hypertension Maternal Grandmother Cancer Paternal Grandfather Diabetes Paternal Grandfather Heart Disease Paternal Grandfather Cancer Paternal Grandmother Diabetes Paternal Grandmother Relation Name Status Comments Father Maternal Grandfather Maternal Grandmother Mother Alive Paternal Grandfather Paternal Grandmother Social History Tobacco Use Types Packs/Day Years Used Date Smoking Tobacco: Never Smokeless Tobacco: Never Alcohol Use Standard Drinks/Week Comments Yes 5 (1 standard drink = 0.6 oz pur e alcohol) Sex and Gender Information Value Date Recorded Sex Assigned at Not on file Gender Identity Not on file Sexual Orientation Not on file Last Filed Vital Signs Vital Sign Reading Time Taken Comments Blood Pressure 144/84 07/03/2015 9:31 AM CDT Pulse 96 02/07/2011 2:47 PM CDT Temperature - - Respiratory Rate 28 02/07/2011 2:47 PM CDT Oxygen Saturation 95% 12/21/2009 2:41 PM CDT Inhaled Oxygen Concentration - - Weight 96.6 kg (213 lb) 07/03/2015 9:31 AM CDT Height 167.6 cm (5' 6 ) 07/03/2015 9:31 AM CDT Body Mass Index 34.38 07/03/2015 9:31 AM CDT Plan of Treatment Health Maintenance Due Date Last Done Comments COLOGUARD (AGES 45-75) - COLON CA SCREENING 1956 CT COLONOGRAPHY - COLON CA SCREENING 1955 FIT - COLON CA SCREENING 1955 FLEX SIG - COLON CA SCREENING 1955 HEPATITIS C SCREENING 08/02/1974 PNEUMOCOCCAL VACCINE 50+ (2 of 2 - PCV) 04/21/1997 04/21/1996 ZOSTER VACCINE (1 of 2) 2006 LIPID TESTING 03/14/2015 03/14/2010 Respiratory Syncytial Virus (RSV) Vaccine Pt: or over 60 yrs (1 - Risk 60-74 years 1-dose series) 2016 MAMMOGRAM 11/20/2017 11/21/2015, 10/20, 11/08/2013, Additional history exists COLON MONITORING 11/15/2018 11/16/2015, , 03/31/2012, Additional history exists Colorectal Cancer Screening 11/15/2018 DTAP/TDAP/TD VACCINES (2 - Td or Tdap) 12/22/2019 12/21/2009 COVID-19 VACCINE ( season) 2023 INFLUENZA VACCINE (#1) 2023 DEPRESSION SCREENING 04/21/2024 COLONOSCOPY - COLON CA SCREENING 11/15/2025 11/16/2015, 03/06/2012 BONE DENSITY TESTING Completed 01/30/2010 HEPATITIS B VACCINE Aged Out No longe r eligible based on patient's age to complete this topic HIB VACCINE Aged Out No longer eligi ble based on patient's age to complete this topic HPV VACCINE Aged Out No longer eligi ble based on patient's age to complete this topic MENINGOCOCCAL (Group B) VACCINE SHARED DECISION-MAKING Aged Out No longer eligible based on patient's age to complete this topic MENINGOCOCCAL GROUPS A/C/Y/W VACCINE Aged Out No longer eligible based on patient's age to complete this topic Procedures Procedure Name Priority Date/Time Associated Diagnosis Comments MAMMO BILAT SCREENING Routine 11/21/2015 11:29 AM CDT Breast cancer screening ENDOSCOPY, COLON, SCREENING Routine 11/16/2015 LIPID PROFILE 03/14/2010 9:24 AM FOREST PATROLMAN DEXA BONE DENSITY 2 SITES Routine 01/30/2010 10:34 AM CDT Asthma from Last 3 Months or Most Recently Relevant to Health Maintenance Results * MAMMO SCREENING DIGITAL IMAGE BILAT (11/21/2015 11:29 AM CDT) Anatomical Region Laterality Modality Breast Bilateral Mammography 11/21/2015 3:45 PM CDT Narrative 11/21/2015 3:46 PM CDT EXAMINATION: Digital screening mammogram with tomosynthesis on 11/21/2015. PRIOR: Several priors, most recent 2014 FINDINGS: Low dose full field digital tomosynthesis exam was performed with 3D acquisitions. Computer assisted detection was utilized. Tissue is fatty. There is no significant change since the prior mammogram. ASSESSMENT: BIRADS 1 : Negative mammogram RECOMMENDATION: Screening mammogram in one year. Thank you for allowing us to participate in the care of your patient. [facility] utilizes [employer] as a reminder system to notify patients of their next recommended mammogram. Jason Cid MD MAMMO ORDERABLES * ENDOSCOPY, COLON, SCREENING (11/16/2015) Provider Unknown GI PROCEDURE ORDERAB LES * (ABNORMAL) LIPID PROFILE (03/14/2010 9:24 AM FOREST PATROLMAN) Cholesterol 209(H) 125 - 200 mg/dL [facility] Comment: Test Performed at: [employer] [facility] [address] [place] [address] KANNAN STEELDO,MPH HDL Cholesterol 47 > OR = 46 mg/dL [facility] Triglycerides 244(H) <150 mg/dL [facility] LDL Calculated 113 <130 mg/dL (calc) [facility] Comment: Desirable range <100 mg/dL for patients with CHD or diabetes and <70 mg/dL for diabetic patients with known heart disease. CHOL/HDLC RATIO 4.4 < OR = 5.0 (calc) [facility] 03/14/2010 9:24 AM FOREST PATROLMAN 03/15/2010 12:46 AM FOREST PATROLMAN Koffi Sharma MD LAB [facility] Organization Address City/State/ZIP Co de Phone Number [facility] [address] [place] [place] [phone] * DEXA BONE DENSITY 2 SITES (01/30/2010 10:34 AM CDT) Anatomical Region Laterality Modality Nuclear Medicine 01/30/2010 10:4 0 AM CDT Narrative 01/30/2010 10:40 AM CDT Bone mineral density of the lumbar spine and right and left hips determined using dual energy x-ray absorptiometry technique. FINDINGS: The bone mineral density of L1 to L4 is 1.155 gm/cm sq with a T-value of -0.2 representing a normal spontaneous fracture risk. . The bone mineral density of the total right hip is 1.110 gm/cm sq with a T-value of 0.8 representing a normal spontaneous fracture risk. . The bone mineral density of the total left hip is 1.077 gm/cm sq with a T-value of 0.6 representing a normal spontaneous fracture risk. . SUMMARY: Normal bone mineral density of the lumbar spine and right and left hips. Procedure Note Eran Calzada MD - 01/30/2010 Bone mineral density of the lumbar spine and right and left hips determined using dual energy x-ray absorptiometry technique. FINDINGS: The bone mineral density of L1 to L4 is 1.155 gm/cm sq with a T-value of -0.2 representing a normal spontaneous fracture risk. . The bone mineral density of the total right hip is 1.110 gm/cm sq with a T-value of 0.8 representing a normal spontaneous fracture risk. . The bone mineral density of the total left hip is 1.077 gm/cm sq with a T-value of 0.6 representing a normal spontaneous fracture risk. . SUMMARY: Normal bone mineral density of the lumbar spine and right and left hips. Koffi Sharma MD DEXA ORDERABLES from Last 3 Months or Most Recently Relevant to Health Maintenance Care Teams Tripoler Relationship Specialty Start Date End Date Koffi Sharma MD [address] [facility] [address] [place] [id number] PCP - OBGYN 10/03/08 Kathy House MD [facility] [address] [place] [address] PCP - General Family Medicine 06/28/14 Patti Burris MD [facility] [place] [address] Gastroenterology 11/21/15
--- OUTSIDE RECORDS SUMMARY | 2024-07-06 17:58 | XMS_ITS | Continuity of Care Document ---
Author Organization [facility] Address [address] [facility] [address] [place] [address] Phone Care Team Providers Care Dx Board Operator Name Role Phone Nicci Posadas Unavailable Unavailable Advance Directives Directive Yes / No Effective Date File Name No Information Encounters Encounter Description Practice Location Reason(s) For Visit Diagnoses Date Provider Providers Copied on Encounter [facility], [id number] [place] [address] [address], [place], [place], [id number], [place] tel:[phone] [facility] No Information 1 Katharina Grajeda. [address], [place], [address], [place]. tel:[phone] Family History Family Member Type Diagnosis Age At Onset No Information Payers Payer name Insurance type Covered libertarian ID Authoriza tion(s) No Information Social History [...]
== END 2024-07-06 16:36 | disposition home or self-care (01) ==
PROVIDERS: PCP Nurse Practitioner Family; Visit Provider Nurse Practitioner Family
DX: M51.360 Other intervertebral disc degeneration, lumbar region with discogenic back pain only (principal); M51.372 Other intervertebral disc degeneration, lumbosacral region with discogenic back pain and lower extremity pain
CPT/HCPCS: 72100

== ENCOUNTER 2024-08-09 09:50 | Outpatient (CLI) | payer MEDICARE, SELFPAY ==
--- NOTE | ~2024-08-09 | CT_ITS ---
CT lumbar spine wo con Ordering provider: Maranda Trinidad APRN History: 69 years Female with . 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 Comparison: None. Technique: CT lumbar spine without contrast. Automated exposure control and iterative reconstruction technique were employed. The dose-length product was 839.59 mGy-cm. FINDINGS: VERTEBRAE: Fracture of the right L5 pedicle is noted which may be old. First-degree Anterolisthesis at the level of L5-S1 with spondylolysis is noted. Degenerative changes of the spine. Old fracture or nonunited apophysis of the right transverse process of L1. Otherwise, N ormal height and alignment. No subluxation or visible acute fracture. DISC SPACES: Narrowing of the disc L5-S1 otherwise, Well maintained. T12-L1: No stenosis. L1-L2: No stenosis. Mild diffuse disc bulge. L2-L3: No stenosis. Mild diffuse disc bulge. L3-L4: No stenosis. Mild diffuse disc bulge. L4-L5: No stenosis. Mild diffuse disc bulge more to the left with narrowing of the left foramen and with nerve root compression. L5-S1: No stenosis. Diffuse disc bulge with bilateral intervertebral normal. PARASPINOUS SOFT TISSUES: Mild atheromatous disease of the abdominal aorta. Calcified fibroid is seen in the area of the uterus. IMPRESSION: Fracture of the right pedicle of L5 which may be old. Clinical correlation advised. Spondylolisthesis with bilateral spondylolysis at the level of L5-S1. Multilevel disc bulges.. Reviewed, dictated and finalized at location A. IMPRESSION: Fracture of the right pedicle of L5 which may be old. Clinical correlation advi sed. Spondylolisthesis with bilateral spondylolysis at the level of L5-S1. Multilevel disc bulges..
== END 2024-08-09 09:51 | disposition home or self-care (01) ==
LOC: MICIMG 09:51
PROVIDERS: PCP Nurse Practitioner Family; Visit Provider Nurse Practitioner Family
DX: G95.19 Other vascular myelopathies (principal); M43.17 Spondylolisthesis, lumbosacral region; M51.369 Other intervertebral disc degeneration, lumbar region without mention of lumbar back pain or lower extremity pain; M51.370 Other intervertebral disc degeneration, lumbosacral region with discogenic back pain only; S32.059A Unspecified fracture of fifth lumbar vertebra, initial encounter for closed fracture; X58.XXXA Exposure to other specified factors, initial encounter
CPT/HCPCS: 72131

== ENCOUNTER 2024-09-15 13:50 | Outpatient (CLI) | payer MEDICARE, SELFPAY ==
--- NOTE | ~2024-09-15 | DEXA_ITS ---
Bone Density Report Name: HIWOT MONTOYA Age: 69 Sex: Female Ethnicity: White Date of : 1955 Indication: postmenopausal; screening for osteoporosis; height loss; history of glucocorticoids; asthma or emphysema; Referring Provider: ROSANA BANKS Study: Bone densitometry was performed. Exam Date: September 15, 2024 Accession number: [id number] Bone Density: Region BMD T-score Z-score Classification AP Spine(L1-L4) 0.898 -1.4 0.6 Osteopenia Femoral Neck (Left) 0.697 -1.4 0.3 Osteopenia Total Hip (Left) 0.931 -0.1 1.3 Normal Femoral Neck (Right) 0.766 -0.7 0.9 Normal Total Hip (Right) 0.971 0.2 1.6 Normal Total Hip Mean 0.951 0.1 1.5 Normal World Health Organization criteria for BMD impression classify patients as: Normal (T-score at or above -1.0), Osteopenia (T-score between -1.0 and -2.5), or Osteoporosis (T-score at or below -2.5). 10-year Fracture Risk(1): Major Osteoporotic Fracture 14% Hip Fracture 1.7% Reported Risk Factors: [place] (), Neck BMD=0.697, BMI=33.5, glucocorticoids (1) FRAX(R) Version 3.08. Fracture probability calculated for an untreated patient. Fracture probability may be lower if the patient has received treatment. Clinical Information Provided by Patient: Has taken Glucocorticoids Has used the following medications: Vitamin D, Calcium Has the following medical conditions: Asthma or Emphysema Patient maximum height was 65.75 Menopause Age: 51 No regular weight bearing exercise Drinks caffeinated beverages Onset of menses at age 17 Number of children 1 Impression: The patient has low bone mass, based on the Total Spine T-score. The patient has an estimated ten-year risk of hip fracture of 1.7% and an estimated ten-year risk of major fracture of 14%, based on the WHO FRAX algorithm. The patient has risk factors, including: history of glucocorticoid therapy. Discussion: BONE DENSITY IS LOW AT ONE OR MORE SKELETAL SITES. This patient's lowest T-score is low at one or more skeletal sites. It meets the World Health Organization's (WHO) criteria for ?low bone mass? (T-score between -1.0 and -2.5). The patient's 10-year risk of fracture as calculated by FRAX is less than the threshold where pharmacological therapy is recommended by the National Osteoporosis Foundation (NOF). However, all treatment decisions require clinical judgment and consideration of individual patient factors, including patient preferences, comorbidities, previous drug use, risk factors not captured in the FRAX model (e.g., frailty, falls, vitamin D deficiency, increased bone turnover, interval significant decline in bone density) and possible under or overestimation of fracture risk by FRAX. The patient should follow a healthful lifestyle (good nutrition with adequate calcium and vitamin D, and appropriate weight-bearing exercise). Follow-Up: Consider repeating this study in 2 to 3 years to reassess this patient's status, or sooner if there is some new clinical indication. Reported by: GARY on 09/15/2024 2:39:00 PM. Reviewed, dictated and finalized at location A.
--- OUTSIDE RECORDS SUMMARY | 2024-09-15 13:56 | XMS_ITS | Clinical Summary ---
Author Organization [facility] Address [address] [place] [address] Care Team Providers Care Press Helper Name Role Phone Koffi Sharma MD Unavailable [phone] Kathy House MD Primary Care Provider [phone] Patti Burris MD Unavailable [phone] Source Comments [facility],non-owned Affiliates and Associated Physician Practices is amultiple site organization consisting of ambulatory clinics and hospital sitesin [place], [place], [place] and [place]. This disclosure is being madepursuant to the Care Everywhere program and may not contain all information available regarding this patient. Last updated 18.[facility] Allergies Active Allergy Reactions Criticality Noted Date Comments Amoxicillin 10/03/2008 DISTAL ESOPHAGEAL BURNING Paroxetine 03/24/2008 LOW BP Zoloft 03/24/2008 DEPRESSION Medications * Be aware that medications may not be up to date on this document. Alwaysverify current medications with the patient. MULTI-VITAMIN PO Take by mouth daily. Active fish oil/omega-3 fatty acids (FISH OIL) 1000 MG capsule Take 1000 mg by mouth 3 times daily. Active atenolol (TENORMIN) 25 MG tabletIndication s:Panic disorder Take 0.5 Tabs by mouth daily. 15 Tab 11 1 Active famciclovir (FAMVIR) 500 MG tabletIndication s:HSV infection Take 3 Tabs by mouth once as needed (at earliest hint of cold sore coming, 3 pills, one dose only.) for 1 dose. 12 Tab 0 1 Active esomeprazole (NEXIUM) 40 MG capsuleIndicatio ns:GERD (gastroesophagea l reflux disease),Gonzalez s esophagus Take by mouth. before supper 30 Cap 11 1 Active fluticasone propionate (FLONASE) 50 MCG/ACT nasal sprayIndications :Asthma Fritch 2 Sprays into each nostril daily. 16 g 1 Active beclomethasone dipropionate (QVAR) 80 MCG/ACT inhalerIndicatio ns:Asthma Inhale 2 Puffs by mouth 2 times daily. 1 Inhaler 11 1 Active busPIRone (BUSPAR) 5 MG tablet TAKE ONE TABLET BY MOUTH TWICE DAILY 60 Tab 5 2 Active Additional Information Patient taking differently: take 1.5 tablets by mouth twice daily, Reported on 07/03/2015 Active Problems Problem Noted Date Diagnosed Date History of colon polyps 11/21/2015 Overview (11/21/2015): Tubular adenoma only 11/16/2015, Dr. Patti Burris, [facility] Palpitations 02/07/2011 Barretts esophagus 12/21/2009 Overview (07/31/2010): [...] NEGATIVE, 08/2004 NEGATIVE, 09/2006 NEGATIVE, 09/24/2007 Immunizations Immunization Administration Dates Next Due PNEUMOCOCCAL PPSV23 04/21/1996 [...] drink = 0.6 oz pur e alcohol) Comments No Sex and Gender Information Value Date Recorded Sex Assigned at Not on file Legal Sex Female 6:23 AM FRUIT RECEIVER Gender Identity Not on file Sexual Orientation Not on file Occupation Industry Job Start Date Job End Date Not on file Not on file Not on file Not on file Last Filed Vital Signs Vital Sign Reading Time Taken Comments Blood Pressure 144/84 07/03/2015 9:31 AM CDT Pulse 96 02/07/2011 2:47 PM CDT Temperature - - Respiratory Rate 28 02/07/2011 2:47 PM CDT Oxygen Saturation 95% 12/21/2009 2:41 PM CDT Inhaled Oxygen Concentration - - Weight 96.6 kg (213 lb) 07/03/2015 9:31 AM CDT Height 167.6 cm (5' 6) 07/03/2015 9:31 AM CDT Body Mass Index 34.38 07/03/2015 9:31 AM CDT Plan of Treatment Health Maintenance Due Date Last Done Comments COLOGUARD (AGES 45-75) - COLON CA SCREENING 1956 CT COLONOGRAPHY - COLON CA SCREENING 1955 FIT - COLON CA SCREENING 1955 FLEX SIG - COLON CA SCREENING 1956 HEPATITIS C SCREENING 08/02/1974 PNEUMOCOCCAL VACCINE 50+ (2 of 2 - PCV) 2006 04/21/1996 ZOSTER VACCINE (1 of 2) 2006 LIPID TESTING 03/14/2015 03/14/2010 MAMMOGRAM 11/20/2017 11/21/2015, 10/20, 11/08/2013, Additional history exists COLON MONITORING 11/15/2018 11/16/2015, , 03/31/2012, Additional history exists Colorectal Cancer Screening 11/15/2018 DTAP/TDAP/TD VACCINES (2 - Td or Tdap) 12/22/2019 12/21/2009 COVID-19 VACCINE ( - season) 2023 DEPRESSION SCREENING 04/21/2024 INFLUENZA VACCINE (Season Ended) 2024 COLONOSCOPY - COLON CA SCREENING 11/15/2025 11/16/2015, 03/06/2012 Respiratory Syncytial Virus (RSV) Vaccine Pt: or over 60 yrs (1 - 1-dose 75+ series) 08/07/2031 BONE DENSITY TESTING Completed 01/30/2010 HEPATITIS B [...] Routine 11/16/2015 LIPID PROFILE 03/14/2010 9:24 AM FRUIT RECEIVER DEXA BONE DENSITY 2 SITES Routine 01/30/2010 [...] participate in the care of your patient. [facility] utilizes [employer] as a reminder system to notify patients of their next recommended mammogram. us Jason Cid MD MAMMO ORDERABLES Final Resul t * ENDOSCOPY, COLON, SCREENING (11/16/2015) us Provider Unknown GI PROCEDURE ORDERABLES Final R esult * (ABNORMAL) LIPID PROFILE (03/14/2010 9:24 AM FRUIT RECEIVER) Cholesterol 209(H) 125 - 200 mg/dL [facility] Comment: Test Performed at: [facility] [address] [place] [address] KANNAN STEEL DO,MPH HDL Cholesterol 47 > OR = 46 mg/dL [facility] Triglycerides 244(H) <150 mg/dL [facility] LDL Calculated 113 <130 mg/dL (calc) [facility] Comment: Desirable range <100 mg/dL for patients with CHD or diabetes and <70 mg/dL for diabetic patients with known heart disease. CHOL/HDLC RATIO 4.4 < OR = 5.0 (calc) [facility] 03/14/2010 9:24 AM FRUIT RECEIVER 03/15/2010 12:46 AM FRUIT RECEIVER Kofif Sharma MD LAB - CHEMISTRY ORDERABLES Fi nal Result [facility] [address] [place] [address] * DEXA BONE DENSITY 2 SITES (01/30/2010 [...] left hips. Koffi Sharma MD DEXA ORDERABLES Final Result from Last 3 Months or Most Recently Relevant to Health Maintenance Care Teams Press Helper Relationship Specialty Start Date End Date Koffi Sharma MD [address] [facility] [address] [place] [id number] PCP - OBGYN 10/03/08 Kathy House MD [facility] [address] [facility] [address] [place] [address] PCP - General Family Medicine 06/28/14 Patti Burris MD [address] [place] [address] Gastroenterology 11/21/15
--- OUTSIDE RECORDS SUMMARY | 2024-09-15 13:56 | XMS_ITS | Encounter Summary ---
Author Organization [facility] Address [address] [place] [address] Care Team Providers Care Weigher Operator Name Role Phone Chente Meredith MD Unavailable [phone] Shyanne Ramos MD Unavailable [phone] [facility] Pranay Klein MD Primary Care Provider [phone] Encounter Details Date Type Department Care Team (Late st Contact Info) Description 07/14/2024 Results Follow-Up [facility] at [address] [address] Jacky Alcaraz NP [address] [place] [address] [address] [place] [address] Throat culture Throat Social History Tobacco Use Types Packs/Day Years Used Date Smoking Tobacco: Never Smokeless Tobacco: Never Alcohol Use Standard Drinks/Week Comments Yes 7 [...] on file Legal Sex 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
--- OUTSIDE RECORDS SUMMARY | 2024-09-15 13:56 | XMS_ITS | Clinical Summary ---
Author Organization [facility] [address] Address [address] [place] [address] Care Team Providers Care Edger Machine Operator Name Role Phone Chente Meredith MD Unavailable [phone] Shyanne Ramos MD Unavailable Pranay Klein MD Primary Care Provider [phone] Allergies Active Allergy Reactions Criticality Noted Date [...] by oral route every day 30 5 12/13/19 16 Active ALPRAZolam (XANAX) 0.25 mg tablet take 1 tablet by oral route 3 times every day prn anxiety 30 2 01/03/20 16 Active fluticasone (FLONASE) 50 mcg/actuation nasal spray Administer 1 spray into each nostril 2 (two) times a day as needed Active busPIRone (BUSPAR) 5 mg tabletIndication s:Generalized Anxiety Disorder Take 1 tablet (5 mg total) by mouth 4 (four) times a day Active valACYclovir (VALTREX) 500 mg tablet Take 1 tablet (500 mg total) by mouth every 12 (twelve) hours 11/29/19 22 Active albuterol HFA (PROVENTIL HFA,VENTOLIN HFA,PROAIR HFA) 90 mcg/actuation inhaler INHALE 2 PUFFS BY MOUTH EVERY 4 TO 6 HOURS NEEDED FOR SHORTNESS OF BREATH OR WHEEZING 03/19/20 22 Active ergocalciferol (VITAMIN D) 50,000 unit capsule Take 1 capsule (50,000 Units total) by mouth once a week 11/26/19 23 Active hydroCHLOROthiaz geovanni (HYDRODIURIL) 25 mg tablet Take 1 tablet (25 mg total) by mouth daily 90 tablet 1 04/08/20 24 Active metoprolol (LOPRESSOR) 100 mg tablet Take 1 tablet (100 mg total) by mouth 2 (two) times a day 180 tablet 3 04/08/20 24 Active cyclobenzaprine (FLEXERIL) 5 mg tabletIndication s:Acute right-sided low back pain with sciatica, sciatica laterality unspecified Take 1 tablet (5 mg total) by mouth 3 (three) times a day as needed for muscle spasms 30 tablet 06/22/19 25 Active rivaroxaban (Xarelto) 20 mg tablet Take 1 tablet (20 mg total) by mouth daily 90 tablet 2 07/20/19 25 Active metoprolol tartrate (LOPRESSOR) 25 mg immediate release tablet Take 1 tablet (25 mg total) by mouth 2 (two) times a day 180 tablet 2 07/20/19 25 Active flecainide (TAMBOCOR) 100 mg tabletIndication s:Paroxysmal atrial fibrillation (HCC) TAKE 1 TABLET TWICE A DAY 180 tablet 3 07/30/19 25 Active beclomethasone (QVAR) 80 mcg/actuation inhaler Inhale 1 puff 2 (two) times a day Rinse mouth with water after use to reduce aftertaste and incidence of candidiasis. Do not swallow. 025 Discontinued acyclovir (ZOVIRAX) 800 mg tablet Take 1 tablet (800 mg total) by mouth daily as needed 08/12/19 20 025 Discontinued predniSONE (DELTASONE) 20 mg tablet TAKE 2 TABLETS BY MOUTH DAILY FOR 5 DAYS 06/11/19 25 025 Discontinued doxycycline hyclate 100 mg capsule TAKE 1 CAPSULE BY MOUTH TWICE DAILY FOR 10 DAYS 06/14/19 25 025 Discontinued Active Problems Problem Noted Date Diagnosed Date Hyperlipidemia 12/12/2023 Chronic fatigue 12/18/2022 Enthesopathy of hip region 04/16/2022 Lesion of ulnar nerve 04/16/2022 Low back pain 04/16/2022 BMI 31.0-31.9,adult 10/12/2020 SINGH on CPAP 10/12/2020 Sensation of fullness in ear 08/21/2020 Adenomatous polyps 01/31/2020 Overview (01/31/2020): Added automatically from request for surgery [id number] Gastric polyps 01/31/2020 Overview (01/31/2020): Added automatically from request for surgery [id number] Chest pain 07/27/2019 Adenomatous polyp 04/07/2019 Overview (04/07/2019): Added automatically from request for surgery [id number] PAT (paroxysmal atrial tachycardia) 11/13/2016 Palpitations 11/13/2016 Premature atrial contractions 11/13/2016 Essential hypertension 11/13/2016 Assessment & Plan (06/30/2019 2:00 PM CDT): Blood pressure is well controlled. Continue same therapy. Continue diet and exercise. Alcohol use 03/06/2016 Overview (07/25/2016): ETOH abuse Paroxysmal atrial fibrillation 03/06/2016 Overview (07/25/2016): Paroxysmal atrial fibrillation Assessment & Plan (07/27/2024 11:03 AM CDT): Chronic, stable. AF well suppressed on flecainide. --Continue flecainide 100 mg BID --Continue metoprolol 125 mg BID --Continue Xarelto 20 mg daily --Check CBC, BMP today Assessment & Plan (07/23/2023 9:35 AM CDT): [...] daily Assessment & Plan (03/26/2022 10:52 AM LYFT DRIVER): Highly symptomatic atrial fibrillation with high arrhythmia [...] ablation. She understands and wishes to proceed. [id number] = 3. Anticoagulation is indicated. --Will arrange [...] continue to follow up with her regular mail deliverer. Adiposity 03/06/2016 Overview (07/25/2016): Obesity (BMI 30.0-34.9) [...] Encounters Date Type Department Care Team Description 09/09/2024 2:30 PM CDT Office Visit [facility] [address] [place] [address] Yan Foster MD SINGH on CPAP (Primary Dx) 08/12/2024 Orders Only Arrhythmia Center [facility] [place] [address] Nile Garcia III, MD 07/27/2024 10:45 AM CDT Office Visit Arrhythmia Center [address] [place] [address] [address] [address] Nile Garcia III, MD Paroxysmal atrial fibrillation (HCC) (Primary Dx); Cardiac arrhythmia, unspecified cardiac arrhythmia type 07/14/2024 Results Follow-Up [facility] at [address] [address] Jacky Alcaraz NP Throat culture Throat 07/12/2024 12:48 PM CDT - 07/12/2024 11:59 PM CDT Hospital Encounter [address] [address] Acute pharyngitis, unspecified etiology Discharge Disposition: Discharge to home or self care 07/12/2024 12:15 PM CDT Office Visit [facility] at [address] [address] Jacky Alcaraz NP Acute pharyngitis, unspecified etiology (Primary Dx) 06/21/2024 10:00 AM LYFT DRIVER Office Visit [facility] at [address] [address] Di Jeffers NP Acute right-sided low back pain with sciatica, [...] Medical History Medical History Date Comments Asthma 1979 Asthma; Comments : [facility] 06/27/2014 - Neuropathy 2012 Neuropathy; Comm ents: [facility] 06/27/2014 - Gonzalez's esophagus 1998 Barretts eso phagitis; Comments: [facility] [place] - Last Upper GI 2014- Normal [...] on file Legal Sex Female 11:36 PM LYFT DRIVER Gender Identity Not on file Sexual Orientation Not on file Obstetrics History Last Filed Vital Signs Vital Sign Reading Time Taken Comments Blood Pressure 143/68 09/09/2024 2:13 PM CDT Pulse 66 09/09/2024 2:13 PM CDT Temperature 36.9 C (98.4 F) 09/09/2024 2:13 PM CDT Respiratory Rate 20 07/12/2024 12:26 PM CDT Oxygen Saturation 96% 09/09/2024 2:13 PM CDT Inhaled Oxygen Concentration - - Weight 86.2 kg (190 lb) 09/09/2024 2:13 PM CDT Height 165.1 cm (5' 5) 09/09/2024 2:13 PM CDT Body Mass Index 31.62 09/09/2024 2:13 PM CDT Plan of Treatment Health Maintenance Due [...] 5 season) 2023 06/02/2020, 05/12/2020 Influenza Vaccine (Season Ended) 2024 01/19/2015, 12/20/2013, 05/04/2012 Colon Cancer Screening-Colonoscopy 12/21/2030 12/21/2020, 11/16/2015 Hepatitis C Screening Completed 10/06/2015 Colon Cancer Screening-CT Colonography Discontinued 12/21/2020, 11/16/2015 Colon Cancer Screening-DNA Stool Discontinued 12/22/19, 11/16/2015 Colon Cancer Screening-FIT Discontinued 12/21/2020, Colon Cancer Screening-Sigmoidoscopy Discontinued 12/21/2020, 11/16/2015 Procedures Procedure Name Priority Date/Time Associated Diagnosis Comments BASIC METABOLIC PANEL Routine 08/12/2024 1:43 PM CDT CBC WITH AUTO DIFFERENTIAL Routine 08/12/2024 11:04 AM CDT CBC WITH AUTO DIFFERENTIAL Routine 08/11/2024 8:15 AM CDT Cardiac arrhythmia, unspecified cardiac arrhythmia type BASIC METABOLIC PANEL Routine 08/11/2024 8:15 AM CDT Cardiac arrhythmia, unspecified cardiac arrhythmia type ECG 12-LEAD Routine 07/27/2024 10:42 AM CDT Cardiac arrhythmia, unspecified cardiac arrhythmia type POCT RAPID STREP Routine 07/12/2024 12:4 8 PM CDT Acute pharyngitis, unspecified etiology THROAT CULTURE Routine 07/12/2024 12:48 PM CDT Acute pharyngitis, unspecified etiology COLONOSCOPY 12/21/2020 9:20 AM CDT SERUM HEPATITIS PANEL Routine 10/06/2015 7:58 AM CDT from Last 3 Months or Most Recently Relevant to Health Maintenance Results * Basic metabolic panel (08/12/2024 1:43 PM CDT) Blood us Nile Garcia III, MD LAB BLOOD ORDERABLE S Final Result * CBC with auto differential (08/12/2024 11:04 AM CDT) Blood us Nile Garcia III, MD LAB BLOOD ORDERABLE S Final Result * (ABNORMAL) CBC with auto differential (08/11/2024 8:15 AM CDT) Pathologist [facility] WBC 5.8 3.4 - 10.8 x10E3/uL [facility] - 01 RBC 4.07 3.77 - 5.28 x10E6/uL [facility] - 01 Hgb 9.7(L) 11.1 - 15.9 g/dL [facility] - 01 Hct 33.5(L) 34.0 - 46.6 % [facility] - 01 MCV 82 79 - 97 fL [facility] - 01 MCH 23.8(L) 26.6 - 33.0 pg [facility] - 01 MCHC 29.0(L) 31.5 - 35.7 g/dL [facility] - 01 Rdw 17.0(H) 11.7 - 15.4 % [facility] - 01 Platelets 197 150 - 450 x10E3/uL [facility] - 01 Neutrophils pct 44 Not Estab. % [facility] - 01 Lymphs pct 43 Not Estab. % [facility] - 01 Monocytes pct 10 Not Estab. % [facility] - 01 Eosinophils pct 1 Not Estab. % [facility] - 01 Basophil pct 1 Not Estab. % [facility] - 01 Neutrophil abs 2.5 1.4 - 7.0 x10E3/uL [facility] - 01 Lymphs (Absolute) 2.6 0.7 - 3.1 x10E3/uL [facility] - 01 Monocyte abs 0.6 0.1 - 0.9 x10E3/uL [facility] - 01 Eosinophils, abs 0.1 0.0 - 0.4 x10E3/uL [facility] - 01 Basophils, abs 0.0 0.0 - 0.2 x10E3/uL [facility] - 01 Immature Granulocytes 1 Not Estab. % [facility] - 01 Immature Grans (Abs) 0.0 0.0 - 0.1 x10E3/uL [facility] - 01 Blood 08/11/2024 8:15 AM CDT 08/11/2024 Narrative [facility] - 08/12/2024 12:07 AM CDT Performed at: [address] [place] [id number] Strategic Development Manager: Jose España PhD, Phone: [phone] Nile Garcia III, MD LAB BLOOD ORDERABLE S Final Result [facility] - * (ABNORMAL) Basic metabolic panel (08/11/2024 8:15 AM CDT) [facility] Glucose 127(H) 70 - 99 mg/dL [facility] - 01 BUN 10 8 - 27 mg/dL [facility] - 01 Creatinine, Serum 0.91 0.57 - 1.00 mg/dL [facility] - 01 eGFR 69 >59 mL/min/1.7 3 [facility] - 01 BUN/creat ratio 11(L) 12 - 28 [facility] - 01 Sodium 141 134 - 144 mmol/L [facility] - 01 Potassium, sr 4.3 3.5 - 5.2 mmol/L [facility] - 01 Chloride 100 96 - 106 mmol/L [facility] - 01 CO2 25 20 - 29 mmol/L [facility] - 01 Calcium 9.2 8.7 - 10.3 mg/dL [facility] - 01 Blood 08/11/2024 8:15 AM CDT 08/11/2024 Narrative [facility] - 08/12/2024 1:07 AM CDT Performed at: [address] [place] [id number] Strategic Development Manager: Jose España PhD, Phone: [phone] Nile Garcia III, MD LAB BLOOD ORDERABLE S Final Result Performing Organization Address City/[facility]/ZIP Co de Phone Number [facility] - 01 * ECG 12 lead (07/27/2024 10:42 AM CDT) Nile Garcia III, MD ECG ORDERABLES Fin al Result * POCT rapid strep A (07/12/2024 12:48 PM CDT) Rapid Strep A, POC Negative Negative Swab 07/12/2024 12:4 8 PM CDT Jacky Alcaraz NP POINT OF CARE TEST ORDERABLES F inal Result * Throat culture Throat (07/12/2024 12:48 PM CDT) Report Final Report: No growth of pathogens. Comment:Testing performed by : [facility], [address] [place]., [address] Throat 07/12/2024 12:4 8 PM CDT 07/13/2024 2:04 AM CDT Narrative ESTER REDDY - 07/14/2024 1:15 AM CDT Testing performed by [facility] Microbiology Laboratory ([phone]). Jacky Alcaraz NP LAB MICROBIOLOGY - GENERAL ORDE RABLES Final Result Performing Organization Address City/[facility]/ZIP Co de Phone Number [facility] [address] Department of Laboratories [place], [place] [id number] * COLONOSCOPY (12/21/2020 9:20 AM CDT) Anatomical Region Laterality Modality Other Narrative Procedure Note Early, Patti Pinzon MD - 12/21/2020 9:20 AM CDT [facility] Patient Name: Unique Marie Procedure Date: 12/21/2020 9:20 AM Date of : 1955 Admit Type: Outpatient Age: 65 Gender: Female Attending MD: Patti Burris M.D. Room: [facility] ENDOSCOPY ROOM 9 Note Status: Finalized [...] The scope was passed under direct vision.The [id number] endoscope was introduced through the anus and advanced to the cecum, identified by appendiceal orifice and ileocecal valve. The colonoscopy was performed without difficulty. The patient tolerated the procedure well. The qualityof the bowel preparation was evaluated using the BBPS ([place] Bowel Preparation Scale) with scores of:Right Colon [...] 7 days, please contact my office at [phone]. Attending Participation: I personally performed the entire procedure. Electronically signed by Patti Burris MD Patti Burris M.D. 12/21/2020 10:13:33 AM . Number of Addenda: 0 Note Initiated On: 12/21/2020 9:20 AM Recognized by the [employer] for promoting quality [...] with a HCV Nucleic Acid Amplification test (211982). Serum 10/06/2015 7:58 AM CDT us Historical Provider LAB BLOOD ORDERABLES Milady willson Result HISTORICAL RESULTS from Last 3 Months or Most Recently Relevant to Health Maintenance Insurance MEDICARE [facility] MEDICARE AAR MEDICARE [facility] Advance Directives For more information, please contact: [phone] * Full Code (Latest Code Status on File) Date Activated Date Inactivated Comments 12/21/2020 8:21 AM 12/21/2020 3:20 PM Care Teams Edger Machine Operator Relationship Specialty Start Date End Date Pranay Klein MD [address] [place] [address] PCP - General Family Practice 12/18/22 Chente Meredith MD Consulting Physician Cardiology 10/12/20 Shyanne Ramos MD [address] [place] [address] Consulting Physician Otolaryngology 10/12/20
--- OUTSIDE RECORDS SUMMARY | 2024-09-15 13:56 | XMS_ITS | Data Portability ---
Author Organization [facility] [place] Address [address] [place] [address] Care Team Providers Care Hot Oiler Name Role Phone NELLIE MARKS Primary Care Provider [phone] Assessment Encounter Date Assessment Date Assessment LastModified by Organization Details LastModified Time 01/11/2020 01/11/2020 Annual gynecological exam performed. Patient will come back in a year unless there are new symptoms. [email or web address] Not available 01/11/2020 12:21:22 01/12/2021 01/12/2021 Annual gynecological exam performed. Patient will come back in a year unless there are new symptoms. Not available 01/12/2021 09:31:04 Plan of Treatment Reminders Order Date Submit Date Provider Last Modified By Organization Details Last Modified Time Details Appointments None record ed. Lab None record ed. Referral None record ed. Procedures None record ed. Surgeries None record ed. Imaging None record ed. Medication Orders None record ed. Patient TargetsNo targets recorded. Patient Instructions Encounter Date Encounter Id Patient Instructions Last Modified By Organization Details Last Modified Time 01/11/2020 [email or web address] Not available 13:15:10 Reason for Referral None Reported. Results Created Date Observation Date Name Description Value Unit Range Abnormal Flag Note LastModifiedBy Organization Detail LastModifiedTime 01/11/20 20 01/13/2020 pap, LB Pap test thin prep Negati ve for Intrae pithel ial Lesion or Malign ron normal ACCES NOVA #: [id number] Sourc e: Cervi karin/E ndoce rvica l LMP: 04/21 Date Taken : 01/10 Speci men Type: ThinP rep Vial Date Repor miriam: 2019 Clini karin Data: Cytot ech: Jessica Umaña ass, CT( CP) Date Repor miriam: 2019 Speci men Adequ acy: Satis facto ry for evalu ation Gener al Categ oriza tion: NEGAT DEANDRE FOR INTRA EPITH ELIAL LESIO N OR MALIG DIANA Inter preta tion/ Resul t: Atrop hy This speci men has been maribell zed by the ThinP rep Imagi ng Syste m, an inter activ e compu ter syste m which jv ts the lab in the scree cindy of ThinP rep Pap Test slide s. Follo wing imagi ng, the slide was revie wed by a Cytot echno logis t and/o r Patho logis t. D N A A S S A Y S R E P O R T TEST NAME RESUL TS ----- ---- ----- -- HPV High Risk Scree n (TMA) ThinP rep Vial The human papil lomav irus (HPV) High Risk Scree n is an FDA-a pprov ed in-vi tro ampli fied nucle ic acid test for the quali tativ e detec tion of E6/E7 viral mRNA. Resul ts flori magaña corre lated with patie nt prese ntati on, histo ry, cervi karin cytol ogy and other clini karin and labor atory findi ngs. See https ://[facility]/s ites/ defamanda lt/fi les/2 018-0 3/AW- 33820 _002_ 01.pd f for fur er infor matio n. Test perfo rmed by [facility], d/b/a [facility], [address] , [facility] [place] [address] , Trini Jiménez ra, DO, Labor atory [facility]. HPV High Risk *HPV NOT DETEC MIRIAM (TYPE S 16, 18, 31, 33, 35, 39, 45, 51, 52, 56, 58, 59, 66, 68) *HPV: The human papil lomav irus (HPV) High Risk Scree n is an FDA-a pprov ed in-vi tro ampli fied nucle ic acid test for the quali tativ e detec tion of E6/E7 viral mRNA. [facility] flori horn lated with charlotte nt prese ntati on, histo ry, cervi karin cytol ogy and other clini karin and labor atory findi ngs. See https ://[facility]/s ites/ defau lt/fi les/2 018-0 3/AW- 28973 _002_ 01.pd f for fur er infor leeroy n. Test perfo rmed by [facility], d/b/a [facility], [address] [facility], [place] [address] , Trini Jiménze ra, DO, Labor atory [facility]. End of t Techn ical servi mayela provi ded by [employer], d/b/a [employer], [address] [place] [address] Adan Martins MD, Labor atorSt[facility]. Case revie wed and diagn osis rende red at [employer], d/b/a [employer], [address] [place] [address] Adan Martins MD, Labor atorStorm[facility] Dire tor. CONFI DENTI AL Not Available [facility] ([facility]) [address] [place] [address], [place], [address], 01/13/2020 11:31:18 01/11/20 20 01/13/2020 HPV DNA, high- risk HPV high risk NOT DETECT ED normal Not Available [facility] ([facility]) [address] [place] [address], [place], [address], 01/13/2020 11:31:18 01/20/20 21 01/19/2021 MAMMO , ayade cindy, bilat eral No observ ation record ed. [facility] [address], [place], [address], 01/23/2021 17:08:32 Result Notes None recorded. Problems Name Problem SNOMED Code Status Onset Date Resolution Date Notes Provider Name and Address Organization Details Recorded Time SNOMED CT Concept Completed 201601/11/2021 Encntr for general adult medical exam w/o abnormal findings; Recorded Elsewhere : No Locati on: [facility] So urce: EHR Chron ic: N Practic e ID: [id number] Bill able Time: 02:00:00 PM Isabel Fuller [facility] 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 17:26:22 Evaluati on finding [id number] Completed 201601/11/2021 Oth abn and inconclus deandre findings on dx imaging of breast;Re corded Elsewhere : No Locati on: [facility] So urce: EHR Chron ic: N Practic e ID: [id number] Bill able Time: 02:00:00 PM Isabel Fuller [facility] 17:26:15 Breast lump [id number] Completed 201601/11/2021 Unspecifi ed lump in breast;Re corded Elsewhere : No Locati on: [facility] So urce: EHR Chron ic: N Practic e ID: [id number] Bill able Time: 02:00:00 PM Isabel Fuller [facility] 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 1 17:26:20 Screenin g for malignan t neoplasm of rectum Completed 201601/11/2021 Encounter for screening for malignant neoplasm of rectum;Pr actice ID: [id number] Isabel [facility] 1 17:26:16 Problem Notes None recorded. Procedures Surgical History Date Name Laterality Status Provider Name and Address Organization Details Recorded Time 01/02/20 21 completed [facility] 01/12/2021 09:38:37 01/11/20 20 Date of Last Pap Smear completed [facility] 01/12/2021 09:47:02 12/20/19 18 Date of Last Mammogram completed [facility] 01/11/2021 17:28:05 reduction mammoplasty completed [facility] 01/11/2020 12:29:06 arthroscopic knee operation completed [facility] 01/11/2020 12:29:47 Imaging Results None recorded. Procedure Notes None recorded. Medical Equipment None Reported. Allergies Allergen ID Allergen Name Allergen Category Reaction Reaction Severity Criticality Documentation Date Start Date Code Code System Note Provider Name and Address Organization Details Recorded Time 2091 Zoloft medicatio n Not available Not available Not available 01/11/2020 [id number] [facility]Norm [facility] 0 12:22:19 2092 Paxil medicatio n Not available Not available Not available 01/11/2020 [id number] [facility] 0 12:22:26 Medications Name Sig Start Date Stop Date Status Note LastModified by Organization Details LastModified Time methocarb melany 500 mg tablet 01/10 completed Not Available Not Available Not Available buspirone 5 mg tablet TAKE 1 TABLET BY MOUTH 4 TIMES DAILY active Not Available Not Available No t Available flecainid e 150 mg tablet 01/10 completed Not Available Not Available Not Available azithromy jean 250 mg tablet 01/10 completed Not Available Not Available Not Available atenolol 25 mg tablet 01/10 completed Not Available Not Available Not Available diphenoxy late-atro pine 2.5 mg-0.025 mg tablet 01/10 completed Not Available Not Available Not Available acyclovir 800 mg tablet 01/10 completed Not Available Not Available Not Available alprazola m 0.25 mg tablet TAKE 1 TABLET BY MOUTH TWICE DAILY AND 1 2 (ONE HALF) AT BEDTIME active Not Available Not Available No t Available pantopraz ole 40 mg tablet,de layed release TAKE 1 TABLET BY MOUTH DAILY active Not Available Not Available No t Available Qvar 40 mcg/actua tion Metered Aerosol oral inhaler 01/12 completed Not Available Not Available Not Available metoprolo l tartrate 50 mg tablet TAKE 1 TABLET BY MOUTH TWICE DAILY active Not Available Not Available No t Available hydrochlo rothiazid e 12.5 mg capsule take 1 capsule by oral route every day active Prescrib ed Elsewher e: Yes Loca tion: [facility] odify By: [email or web address] z Encoun ter DateTime : 11/22/19 17 02:00:00 PM Not Available Not Available Not Available azelastin e 137 mcg (0.1 %) nasal spray USE 2 SPRAYS IN EACH NOSTRIL TWICE DAILY 01/12 completed Not Available Not Available Not Available methylpre dnisolone 4 mg tablets in a dose pack FOLLOW PACKAGE DIRECTIO NS 01/11 completed Not Available Not Available Not Available ketoconaz ole 2 % topical cream 01/10 completed Not Available Not Available Not Available ondansetr on 4 mg disintegr ating tablet 01/12 completed Not Available Not Available Not Available fluticaso ne propionat e 50 mcg/actua tion nasal spray,wilner pension USE 2 SPRAY(S) IN EACH NOSTRIL ONCE DAILY active Not Available Not Available No t Available doxycycli ne hyclate 100 mg tablet 01/10 completed Not Available Not Available Not Available amoxicill in 875 mg-potass ium clavulana te 125 mg tablet 01/10 completed Not Available Not Available Not Available metoprolo l tartrate 25 mg tablet 01/10 completed Not Available Not Available Not Available nitrofura ntoin monohydra te/macroc rystals 100 mg capsule TAKE 1 CAPSULE BY MOUTH EVERY 12 HOURS FOR 7 DAYS 01/11 completed Not Available Not Available Not Available Flonase active Not Available Not Avail able Not Available hydrochlo rothiazid e 01/12 completed Not Available Not Available Not Available Vitamin D 01/12 completed Not Available Not Available Not Available metoprolo l succinate 01/12 completed Not Available Not Available Not Available BuSpar 01/12 completed Not Available Not Available Not Available Xanax 01/12 completed Not Available Not Available Not Available ProAir HFA 90 mcg/actua tion aerosol inhaler active Not Available Not Available Not Available hydrochlo rothiazid e 12.5 mg tablet active Not Available Not Available Not Available Vitamin D3 50 mcg (2,000 unit) tablet TAKE 1 TABLET BY MOUTH DAILY 01/11 completed Not Available Not Available Not Available GaviLyte- G 236 gram-22.7 4 gram-6.74 gram-5.86 gram oral solution 01/10 completed Not Available Not Available Not Available Suprep Bowel Prep Kit 17.5 gram-3.13 gram-1.6 gram oral solution TAKE 1 BOTTLE AT 6PM THE EVENING BEFORE AND 1 BOTTLE 4 HOURS BEFORE ARRIVAL AT 2AM 01/12 completed Not Available Not Available Not Available Vitamin D3 50 mcg (2,000 unit) capsule TAKE 1 CAPSULE BY MOUTH DAILY active Not Available Not Available No t Available Dificid 200 mg tablet 01/10 completed Not Available Not Available Not Available Xarelto 01/12 completed Not Available Not Available Not Available Xarelto 20 mg tablet TAKE 1 TABLET BY MOUTH DAILY active Not Available Not Available No t Available Qvar RediHaler 80 mcg/actua tion HFA breath activated aerosol INHALE 2 PUFFS BY MOUTH TWICE DAILY active Not Available Not Available No t Available Vitals Date Recorded Body height Body mass index (BMI) Body weight Systolic blood pressure Diastolic blood pressure Systolic blood pressure Diastolic blood pressure Provider Name and Address Organization Details Last Updated DateTime 0 165.1 cm 33.6 kg/m2 80866.6 6 g 167 mm[Hg] 87 mm[Hg] 147 mm[Hg] 84 mm[Hg] Danielle Cabrera [facility] 0 12:37:05 Date Recorded Body height Body mass index (BMI) Body weight Systolic blood pressure Diastolic blood pressure Provider Name and Address Organization Details Last Updated DateTime 01/12/2021 162.56 cm 34 kg/m2 23534.29 g 138 mm[Hg] 81 mm[Hg] Isabel Fuller [facility] 1 09:38:21 Social History Question Answer Notes LastModified by Organizat ion Details LastModified Time Tobacco Smoking Status Never Smoker Isabel Fuller [facility] 01/12/2021 09:38:45 Do You Have An Advance Directive? Yes Information n ot available 01/12/2021 How Many Years Have You Consumed Alcohol? 30 Information not available 01/12/2021 Are You Blind Or Do You Have Difficulty Seeing? No Information n ot available 01/11/2021 What Is Your Level Of Caffeine Consumption? None Information not available 01/12/2021 How Much Tobacco Do You Chew? None Information not available 01/12/2021 In The 14 Days Before Symptom Onset, Have You Had Close Contact With A Laboratory-confirm ed COVID-19 While That Case Was Ill? No Information n ot available 01/12/2021 In The 14 Days Before Symptom Onset, Have You Had Close Contact With A Person Who Is Under Investigation For COVID-19 While That Person Was Ill? No Information not available 01/12/2021 Have You Been To An Area Known To Be High Risk For COVID-19? No Information not available 01/12/2021 Are You Deaf Or Do You Have Serious Difficulty Hearing? No Information not available 01/11/2021 What Type Of Diet Are You Following? REGULAR Information n ot available 01/11/2021 What Is The Highest Grade Or Level Of School You Have Completed Or The Highest Degree You Have Received? [id number] Information not available 01/12/2021 Are There Any Guns Present In Your Home? No Information not available 01/12/2021 Do You Use Protection During Sex? No Information not available 01/12/2021 Do You Use Your Seat Belt Or Car Seat Routinely? Yes Information not available 01/11/2021 Do You Have Smoke And Carbon Monoxide Detectors In Your Home? Yes Information not available 01/11/2021 How Much Tobacco Do You Smoke? No Information not available 01/12/2021 Do You Use Sunscreen Routinely? Yes Information not available 01/11/2021 Have You Used IV Drugs? No Information not available 01/12/2021 Sex: Unknown Functional Status Question Answer Note LastModified by Organizat ion Details LastModified Time Do you use any illicit or recreational drugs? No Information not available 01/11/2021 What is your level of alcohol consumption? Occasional Information not available 01/11/2021 Are you able to walk? 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 Occasional Information not available 01/11/2021 Mental Status Question Answer Note LastModified by Organization D etails LastModified Time Do you feel stressed (tense, restless, nervous, or anxious, or unable to sleep at night)? [id number] Information not available 01/12/2021 Family History Relationship Description Onset Age of this Age Resolved Age Notes LastModified by Organization Details LastModified Time Father Heart disease [email or web address] Not available 2019 12:28:11 Father Diabetes mellitus [email or web address] Not available 2019 12:28:20 Mother Disorder of thyroid gland [email or web address] Not available 2019 12:28:43 Sister Disorder of thyroid gland [email or web address] Not available 2019 12:28:43 Paternal Aunt Malignant tumor of colon [email or web address] Not available 2019 12:45:51 Maternal Uncle Heart disease [email or web address] Not available 2019 12:46:04 Maternal Grandfather Heart disease [email or web address] Not available 2019 12:46:18 Paternal Grandfather Heart disease [email or web address] Not available 2019 12:46:25 Paternal Grandfather Diabetes mellitus [email or web address] Not available 2019 12:46:46 Paternal Grandmother Diabetes mellitus [email or web address] Not available 2019 12:46:40 Maternal Grandmother Hypertensive disorder [email or web address] Not available 2019 12:47:08 Medical History Condition Response Allergies (Food, seasonal, environmental ) Y Anxiety Disorder Y Heart Problems Y Other Y Polyps Y History of STI Y Acid Reflux (GERD) Y Hypertension Y Asthma Y Gynecological History Statement/Question Response Date of Last Mammogram 12/19/2017 Date of LMP 04/21/2012 On BCP's at Conception? N N Was last menstrual period normal Y STIs/STDs N HPV Vaccine N Duration of Flow (days) 6 17 Current Control Method Menopause If Post Menopausal, Age at Menopause 54 Frequency of Cycle (Q days) 30 Sexually Active? N Age of first menstrual cycle 17 Date of Last Pap Smear 01/11/2020 Sexual Problems? N LMP Unknown 01/01/2021 N Obstetrics History GPAL:G 2 P 0 0 1 1 Type Value Induced 1 Living 1 Total 2 Past Encounters Encounter ID Performer Location Encounter Start Date Encounter Closed Date Diagnosis/Indication Diagnosis SNOMED-CT Code Diagnosis ICD10 Code Diagnosis Note Lis Wallace [facility] [address] [address] 01/11/2020 12:05:23 01/11/2020 13:58:50 Gynecologic examination 02419605 Z01.419 Take Calcium with Vitamin D 12-1500mg daily. Do monthly self breast exams. It is advised to get annual flu shot in the fall and she could obtain at [facility] or [facility] care clinic. If you haven't received the Tdap vaccine in the last 10 years you should obtain one as well. Have mammogram yearly, bone density every 2-3 years and colonoscop y every 5-10 years depending on findings and history. Engage in daily exercise of low impact aerobic exercise 45-60 minutes 4-5 times weekly. Avoid tobacco and illicit drugs as well as using moderation with alcohol intake less than 1-2 8 oz beverages daily. This lifestyle behavior pattern will lead to less health conditions and longer life span. If BMI greater than 25 weight watchers or dietary consult advised. Questions have been answered. Patient appears to understand instructio ns, but if you have any further questions call or respond to this email No issues or concerns this year. Dexa age 66yo unless otherwise indicated. Mammo done. Sending results. Preferred pap/hpv testing this year. We discussed last pap/hpv 65yo as d/c once 65+ per asccp unless otherwise indicated. [id number] Lis Wallace [facility] [address] [address] 01/12/2021 09:24:18 01/12/2021 10:27:06 Gynecologic examination [id number] Z01.419 Take Calcium with Vitamin D 12-1500mg daily. Do monthly self breast exams. It is advised to get annual flu shot in the fall and she could obtain at [facility] or [facility] care clinic. If you haven't received the Tdap vaccine in the last 10 years you should obtain one as well. jHave mammogram yearly, bone density every 2-3 years and colonoscop y every 5-10 years depending on findings and history. Engage in daily exercise of low impact aerobic exercise 45-60 minutes 4-5 times weekly. Avoid tobacco and illicit drugs as well as using moderation with alcohol intake less than 1-2 8 oz beverages daily. This lifestyle behavior pattern will lead to less health conditions and longer life span. If BMI greater than 25 weight watchers or dietary consult advised. Questions have been answered. Patient appears to understand instructio ns, but if you have any further questions call or respond to this email No issues or concerns this year. Dexa age 66yo unless otherwise indicated- -PCP will manage per pt. Mammo done. Sending results. WNL Pap/hpv sent We discussed last pap/hpv 65yo as d/c once 65+ per asccp unless otherwise indicated. 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 Health Concerns Section Related Observation LastModified by Organization Frankie alcala LastModified Time None Recorded Concern Status LastModified by Organization Details LastModified Time None Recorded Advance Directives Directive Y: Payers Encounter Date Sequence Insurance Name Policy Number Policy Carpenter Covered Member ID Carpenter Member ID Guarantor Name 01/11/2020 1 JADENA [id number] Unique Marie [id number] Unique Marie 01/12/2021 1 [employer] [id number] Unique Marie [id number] Unique Marie Notes Date Note Type Note Provider Name and Address Organization Details Recorded Time 01/11/2020 text/html Annual GYNReport ed bypatient.History:n o gynecologic complaints Menstrual cycle:Normal menses Urinary symptoms:No hematuria; No incontinence Vulva:No genital lesion Vagina:Normal vaginal discharge Breast:No breast pain; No breast lump; No nipple discharge Current Contraception:Not sexually active; postmenopause Sexual complaints:No sexual complaints; No pain during intercourse; Normal libido Menopausal Symptoms:No menopausal symptoms; Normal vaginal lubrication Psychological symptoms:No depression; No anxiety; No PMDD Preventive measures:Encourage self breast examination; Encourage regular exercise; Encourage no tobacco use; Encourage regular mammograms starting age 40; Mammogram performed within the past year; Up to date on colonoscopy screening ALAN Knight [address], [place], [address], [facility] 01/11/2020 13:17:39 01/12/2021 text/html Annual Camp Advisor Post-MenopausalRepo rted bypatient.Menopausa l Symptoms:no menopausal symptoms; normal vaginal lubrication Vaginal Bleeding:history of menopause having occurred; no history of post menopausal bleeding Urinary Symptoms:no hematuria; no incontinence; no nocturia; no urinary frequency Vulva:no genital lesion; no vulvar atrophy Vagina:normal vaginal discharge; no vaginal atrophy Breast:no breast lump; no nipple discharge; no breast pain Sexual Complaints:no sexual complaints Psychological Symptoms:no depression; no anxiety Preventive Measures:encourage regular mammograms starting age 40; encourage self breast examination; encourage regular exercise; encourage no tobacco use; mammogram performed within the past year; history of recent colonoscopy ALAN Knight [address], [place], [address], [facility] 01/12/2021 10:03:09 OBGyn Episode Ob Episode Information Episode Created Date Number of Fetuses Patient Bloodtype Patient rh Status Prepregnancy Weight lbs Domestic Partner Domestic Partner Phone Father Name Airflight Attendants Supervisor Status 01/11/20 20 1 CLOSED Fetus Data First Name Last Name Admitted to NICU Weight (g) Sex Living Outcome Pediatric Complications Fetus ID Race Codes Race Delivery Type [id number] Vaginal Delivery Greg Calculation Initial Greg Date Initial Exam Date Initial Exam Provider Initial Ultrasound Date Last Menstrual Period Date Ultra Sound Weeks Gestation 0 Eighteen To Twenty Week Greg Update Ultra Sound Date Fundal Height At Umbil Quickening Date Ultra Sound Latest Weeks Gestation Final Greg Confirmed By Final Greg Confirmed Date Final Greg Date Ultra Sound Latest Days Gestation 0 0 Menstrual History Last Menstrual Date Menses Monthly On Bcp Conception Prior Menses Frequency Hcg Plus Date Menarche Onset Age Delivery Information Delivery Date Delivery Type Labor Anesthesia Weeks Gestation Incision Type Labor Labor Length Hrs Delivered By Post Complications Tubal Sterilization Discharge Date Comments 9 Jovani Discharge Information Feeding Method Contraceptive Method Maternal HG B and HCT Levels Ob Episode Information Episode Created Date Number of Fetuses Patient Bloodtype Patient rh Status Prepregnancy Weight lbs Domestic Partner Domestic Partner Phone Father Name Airflight Attendants Supervisor Status 01/11/20 20 1 CLOSED Fetus Data First Name Last Name Admitted to NICU Weight (g) Sex Living Outcome Pediatric Complications Fetus ID Race Codes Race Delivery Type , Induced [id number] Greg Calculation Initial Greg Date Initial Exam Date Initial Exam Provider Initial Ultrasound Date Last Menstrual Period Date Ultra Sound Weeks Gestation 0 Eighteen To Twenty Week Greg Update Ultra Sound Date Fundal Height At Umbil Quickening Date Ultra Sound Latest Weeks Gestation Final Greg Confirmed By Final Greg Confirmed Date Final Greg Date Ultra Sound Latest Days Gestation 0 0 Menstrual History Last Menstrual Date Menses Monthly On Bcp Conception Prior Menses Frequency Hcg Plus Date Menarche Onset Age Delivery Information Delivery Date Delivery Type Labor Anesthesia Weeks Gestation Incision Type Labor Labor Length Hrs Delivered By Post Complications Tubal Sterilization Discharge Date Comments 0 Discharge Information Feeding Method Contraceptive Method Maternal HG B and HCT Levels
--- OUTSIDE RECORDS SUMMARY | 2024-09-15 13:57 | XMS_ITS | Referral Summary ---
Author Organization [facility] [address] Address [address] [place] [address] Care Team Providers Care Preflight Mechanic Name Role Phone Chente Meredith MD Unavailable [phone] Shyanne Ramos MD Unavailable Pranay Klein MD Primary Care Provider [phone] Encounters Date Type Department Care Team Description 09/09/2024 2:30 PM CDT Office Visit [facility] [address] 6th [address] [place] [address] Yan Foster MD SINGH on CPAP (Primary Dx) 08/12/2024 Orders Only [facility] [address] [facility] [address] [place] [address] Nile Garcia III, MD 07/27/2024 10:45 AM CDT Office Visit [facility] [address] [address] Nile Garcia III, MD Paroxysmal atrial fibrillation (HCC) (Primary Dx); Cardiac arrhythmia, unspecified cardiac arrhythmia type 07/14/2024 Results Follow-Up [facility] at [address] [address] Jacky Alcaraz NP Throat culture Throat 07/12/2024 12:48 PM CDT - 07/12/2024 11:59 PM CDT Hospital Encounter [address] [address] Acute pharyngitis, unspecified etiology Discharge Disposition: Discharge to home or self care 07/12/2024 12:15 PM CDT Office Visit [facility] at [address] [address] Jacky Alcaraz NP Acute pharyngitis, unspecified etiology (Primary Dx) 06/21/2024 10:00 AM LIFE ASSURANCE REPRESENTATIVE Office Visit [facility] at [address] [address] Di Jeffers NP Acute right-sided low back [...] (01/31/2020): Added automatically from request for surgery [id number] Gastric polyps 01/31/2020 Overview (01/31/2020): Added automatically from request for surgery [id number] Chest pain 07/27/2019 Adenomatous polyp 04/07/2019 Overview (04/07/2019): Added automatically from request for surgery [id number] PAT (paroxysmal atrial tachycardia) 11/13/2016 Palpitations 11/13/2016 [...] daily Assessment & Plan (03/26/2022 10:52 AM LIFE ASSURANCE REPRESENTATIVE): Highly symptomatic atrial fibrillation with high [...] ablation. She understands and wishes to proceed. [id number] = 3. Anticoagulation is indicated. --Will arrange [...] continue to follow up with her regular radio repairman. Adiposity 03/06/2016 Overview (07/25/2016): Obesity (BMI 30.0-34.9) [...] on file Legal Sex Female 11:36 PM LIFE ASSURANCE REPRESENTATIVE Gender Identity Not on file Sexual [...] 09/09/2024 2:13 PM CDT Plan of Treatment Not on file Procedures [...] with auto differential (08/11/2024 8:15 AM CDT) WBC 5.8 3.4 - 10.8 x10E3/uL [facility] [...] - 08/12/2024 12:07 AM CDT Performed at: [address] [place] [id number] Chimney Sweeper: Jose España PhD, Phone: [phone] Nile Garcia III, MD LAB BLOOD ORDERABLE S Final Result [facility] * (ABNORMAL) Basic metabolic panel (08/11/2024 8:15 AM CDT) [facility] Glucose 127(H) 70 - 99 mg/dL [facility] [...] - 08/12/2024 1:07 AM CDT Performed at: [address] [place] [id number] Chimney Sweeper: Jose España PhD, Phone: [phone] us Nile Garcia III, MD LAB BLOOD ORDERABLE S Final Result Performing Organization Address City/[facility]/ZIP Co de Phone Number [facility] [...] growth of pathogens. Comment:Testing performed by : [facility], [address] [place]., [address] Throat 07/12/2024 12:4 8 PM CDT 07/13/2024 2:04 AM CDT Narrative ESTER REDDY - 07/14/2024 1:15 AM CDT Testing performed by [facility] Microbiology Laboratory ([phone]). Jacky Alcaraz NP LAB MICROBIOLOGY - GENERAL ORDE RABJUSTICE Final Result Performing Organization Address [facility] Co de Phone Number ESTER [address] Department of Laboratories [place], [place] [phone] * COLONOSCOPY (12/21/2020 9:20 AM CDT) Anatomical Region Laterality Modality Other Narrative Procedure Note Early, Patti Pinzon MD - 12/21/2020 9:20 AM CDT [facility] Patient Name: Unique Marie Procedure Date: 12/21/2020 9:20 AM Date of : 1955 Admit Type: Outpatient Age: 65 Gender: Female Attending MD: Patti Burris M.D. Room: [facility] ENDOSCOPY ROOM 9 Note Status: [...] The scope was passed under direct vision.The [id number] endoscope was introduced through the anus and advanced to the cecum, identified by appendiceal orifice and ileocecal valve. The colonoscopy was performed without difficulty. The patient tolerated the procedure well. The qualityof the bowel preparation was evaluated using the BBPS ([place] Bowel Preparation Scale) with scores of:Right Colon [...] 7 days, please contact my office at [phone]. Attending Participation: I personally performed the entire procedure. Electronically signed by Patti Burris MD Patti Burris M.D. 12/21/2020 10:13:33 AM . Number of Addenda: 0 Note Initiated On: 12/21/2020 9:20 AM Recognized by the [employer] for promoting quality [...] with a HCV Nucleic Acid Amplification test ([id number]). Serum 10/06/2015 7:58 AM CDT us Historical Provider LAB BLOOD ORDERABLES Milady willson Result HISTORICAL RESULTS from Last 3 Months or Most Recently Relevant to Health Maintenance Insurance MEDICARE [facility] MEDICARE [facility] MED[facility] Advance Directives For more information, please contact: [phone] * Full Code (Latest Code Status on File) Date Activated Date Inactivated Comments 12/21/2020 8:21 AM 12/21/2020 3:20 PM Care Teams Preflight Mechanic Relationship Specialty Start Date End Date Pranay Klein MD [address] [place] [address] PCP - General Family Practice 12/18/22 Chente Meredith MD Consulting Physician Cardiology 10/12/20 Shyanne Ramos MD [address] [place] [address] Consulting Physician Otolaryngology 10/12/20
--- OUTSIDE RECORDS SUMMARY | 2024-09-15 13:57 | XMS_ITS | Continuity of Care Document ---
Author Organization [facility] Address [address] [facility] [address] [place] [address] Phone Care Team Providers Care Child Adolescent Care Name Role Phone Nicci Posadas Unavailable Unavailable Advance Directives Directive Yes / No Effective Date File Name No Information Encounters Encounter Description Practice Location Reason(s) For Visit Diagnoses Date Provider Providers Copied on Encounter formerly [facility], [address] [place] [address] [address], [place], [place], [id number], [place] tel:[phone] [facility] No Information 1 Katharina Grajeda. [address] , [address], [place], [address], [place]. tel:[phone] Family History Family Member Type Diagnosis Age [...]
== END 2024-09-15 13:51 | disposition home or self-care (01) ==
PROVIDERS: PCP Family Medicine; Visit Provider Nurse Practitioner Family
DX: M85.89 Other specified disorders of bone density and structure, multiple sites (principal); Z78.0 Asymptomatic menopausal state; Z13.820 Encounter for screening for osteoporosis
CPT/HCPCS: 77080

== ENCOUNTER 2024-10-24 10:57 | Emergency (ER) | payer MEDICARE, SELFPAY ==
--- NOTE | ~2024-10-24 | XR_ITS ---
CHEST RADIOGRAPH CLINICAL HISTORY: cough x3 weeks . COMPARISON: 06/21/2019 TECHNIQUE: Single portable view of the chest. FINDINGS The cardiomediastinal silhouette is partially obscured and otherwise unremarkable. Elevation of the left hemidiaphragm is identified with adjacent compressive atelectasis. Diaphragmatic elevation is unchanged from 2020 examination. No peribronchial thickening is detected. The remainder of the lungs are clear. IMPRESSION: Persistent elevation of the right hemidiaphragm, now with adjacent compressive atelectasis, an interv al change. Reviewed, dictated and finalized at location A. IMPRESSION: Persistent elevation of the right hemidiaphragm, now with adjacent compressive atelectasis, an interval change.
[2024-10-24 11:08] VITALS: BP 126/52; PULSE 59; RESP 16; TEMP 36.6; O2SAT 98
--- NOTE | 2024-10-24 11:13 | ED.URI ---
HPI - URI/Sore Throat General Chief Complaint: Upper Respiratory Infection Stated Complaint: Cough Time Seen by Provider: 10/24/24 11:13 Source: patient Mode of arrival: ambulatory Limitations: no limitations History of Present Illness HPI Narrative: 69 y/o female with hx asthma and afib presented for c/o cough x3 weeks. At the onset, pt was seen at an UC and prescribed Augmentin and steroids for an 'inconclusive' chest xray. Pt was then seen by pcp for persistent cough, who prescribed more prednisone and changed to zpack which she completed about one week ago. Pt says symptoms had improved but not resolved. And now cough is returing. Endorses associated fatigue. Denies cp, sob, wheezing, n/v/d/f/c. Using prescribed inhaler and albuterol inhaler. Related Data Home Medications ?Medication ?Instructions ?Recorded ?Confirmed ?Last Taken ?Type flecainide 100 mg tablet 100 mg PO Q12H 06/12/22 09/21/24 Unknown History Allergies Allergy/AdvReac Type Severity Reaction Status Date / Time sertraline Allergy Severe suicidal Verified 10/24/24 11:10 thoughts lidocaine AdvReac Unknown Confusion Verified 10/24/24 11:10 Grass Allergy Mild Sneezing Uncoded 10/24/24 11:10 PAROXETINE HCL Allergy Mild racing Uncoded 10/24/24 11:10 heart Review of Systems Review of Systems: CONSTITUTIONAL: Denies body aches, fever, chills, or sweats. EYES: Denies visual changes, redness, or discharge. ENT: Denies rhinorrhea, congestion, sore throat, or otalgia. CARDIOVASCULAR: Denies chest pain, palpitations, or edema. RESPIRATORY: Reports cough, denies sob, wheezing. GASTROINTESTINAL: Denies abdominal pain, nausea, vomiting, or diarrhea. SKIN: Denies rash MUSCULOSKELETAL: Denies back pain, joint pain, or myalgia. NEUROLOGIC: Denies headache, numbness, tingling, or weakness. PSYCH: Denies depression or anxiety. All systems reviewed & are unremarkable except as noted in HPI and below PMFSH Past Medical History Medical History Peripheral polyneuropathy Back pain with radiculopathy skilled nursing current use of anticoagulant Gastric polyps Screening for colon cancer Postmenopausal History of asthma Gonzalez's esophagus without dysplasia Essential (primary) hypertension Generalized anxiety disorder Mixed hyperlipidemia Lipoma of back Paroxysmal atrial fibrillation Ulnar neuropathy of left upper extremity Family History Family History Father Diabetes mellitus Sibling Patient's sister is in good health Social History Social History Smoking status: Never smoker Second hand tobacco smoke exposure: No Alcohol intake: current Alcohol use details: social Substance use: never Gender identity (if verbalized by the patient): Female Comments At time of signature, I have reviewed and agree with nursing past medical, surgical, social and family history unless otherwise noted. Please see nursing chart for further information. There is no relevant family history pertinent to the presenting complaint Exam Narrative: GENERAL: Well-appearing, in no acute distress. EYES: EOMI. No redness or drainage. Conjunctivae normal. ENT: Mucous membranes pink and moist. No rhinorrhea. TMs normal bilaterally. Throat normal. Uvula midline. NECK: Normal AROM. Supple. CHEST: No respiratory distress. speaks full sentences. Occasional nonproductive cough noted. lungs clear all lofton, diminished right base HEART: Regular rate and rhythm. No murmur appreciated. ABDOMEN: Soft, nontender, nondistended, normal active bowel sounds. EXTREMITIES: Normal range of motion. No edema. SKIN: Warm, dry, no rash. Capillary refill normal. Normal skin turgor. NEURO: Alert and oriented x3. Gait steady. PSYCH: Normal affect. Course Course Emergency Course: Patient is aware of diagnosis, understands and agrees to treatment plan. Anticipatory guidance given. Patient agrees to follow-up as directed and is aware of reasons to seek care at the emergency department. Portions of this record may have been created with voice recognition software Level of Care: Express Care Visit Vital Signs Vital signs: Vital Signs Temperature 97.9 F 10/24/24 11:08 Pulse Rate 59 L 10/24/24 11:08 Respiratory Rate 16 10/24/24 11:08 Blood Pressure 126/52 L 10/24/24 11:08 Pulse Oximetry 98 10/24/24 11:08 Temperature 97.9 F 10/24/24 11:08 Pulse Rate 59 L 10/24/24 11:08 Respiratory Rate 16 10/24/24 11:08 Blood Pressure 126/52 L 10/24/24 11:08 Pulse Oximetry 98 10/24/24 11:08 MDM - URI/Sore Throat MDM Narrative Medical decision making narrative: Discussed physical exam findings And chest x-ray. Pt instructed on incentive spirometer. Defer additional abx as pt has completed 2 courses, afebrile, without dypnea. Advised supportive measures and signs/symptoms to go to the ER. Pt is appropriate for outpt treatment and f/u with pcp tomorrow. Differential Diagnosis Differential diagnosis: Likely upper respiratory infection, sinusitis, viral infection, bronchitis, pharyngitis and other (Angioedema, perforation, asthma, pneumonia, PE, tension pneumothorax, cardiac tamponade MS, pericarditis, pleural effusion, CHF, bronchitis, cardiac arrhythmia) Imaging Data Radiologist's impression: Patient: Unique Marie : 1955 MR#: [id number] Age: 69 Acct:[id number] [facility] ADM Date: 10/24/24Attending Dr: ADDENDUMCHEST RADIOGRAPH CLINICAL HISTORY: cough x3 weeks . COMPARISON: 06/21/2019 TECHNIQUE: Single portable view of the chest. FINDING The cardiomediastinal silhouette is partially obscured and otherwise unremarkable Elevation of the RIGHT hemidiaphragm is identified with adjacent compressive atelectasis. Diaphragmatic elevation is unchanged from 2019 examination. No peribronchial thickening is detected. The remainder of the lungs are clear. IMPRESSION: Persistent elevation of the RIGHT hemidiaphragm, now with adjacent compressive atelectasis, an interval change. Discharge Plan Discharge Clinical Impression: Bronchitis Patient Disposition: Home Condition: Stable Instructions: Antibiotic Form, Atelectasis (ED) Additional Instructions: Use the incentive spirometer 10 times every 2 hours while you are awake. continue the use of your inhalers as previously prescribed over the counter Cough syrup may cause drowsiness; avoid driving or take it at night time. Tylenol every 8 hours as needed for pain Follow up with your primary care provider, call to schedule appointment Go to the ER for worsening symptoms or concerns Patient Language: Yemeni Prescriptions: No Action flecainide 100 mg tablet 100 mg PO Q12H alprazolam 0.25 mg tablet 0.25 mg PO TID PRN (Reason: anxiety) Qty: 65 0RF albuterol sulfate [Ventolin HFA] 90 mcg/actuation HFA aerosol inhaler 2 puff INHALATION Q4-6H PRN (Reason: shortness of breath or wheezing) Qty: 18 1RF Xarelto 20 mg tablet See Rx Instructions .ROUTE .COMPLEX Qty: 90 1RF Dose Instruction: TAKE 1 TABLET BY MOUTH DAILY Rx Instructions: TAKE 1 TABLET BY MOUTH DAILY buspirone 5 mg tablet 5 mg PO TID Qty: 20 0RF fluticasone propionate [Flonase Allergy Relief] 50 mcg/actuation spray,suspension 2 spray intranasal DAILY Qty: 15.8 4RF Rx Instructions: administer into each nostril metoprolol tartrate 100 mg tablet See Rx Instructions .ROUTE .COMPLEX Qty: 90 7RF Dose Instruction: TAKE 1 TABLET TWICE A DAY Rx Instructions: TAKE 1 TABLET TWICE A DAY hydrochlorothiazide 25 mg tablet 25 mg PO DAILY Qty: 90 1RF Arnuity Ellipta 100 mcg/actuation blister with device 1 inh inhalation DAILY Qty: 30 3RF valacyclovir 500 mg tablet 500 mg PO Q12H Qty: 90 1RF pantoprazole 40 mg tablet,delayed release (DR/EC) See Rx Instructions .ROUTE .COMPLEX Qty: 90 1RF Dose Instruction: TAKE 1 TABLET BY MOUTH DAILY Rx Instructions: TAKE 1 TABLET BY MOUTH DAILY ferrous sulfate 325 mg (65 mg iron) tablet 325 mg PO DAILY Qty: 90 1RF cholecalciferol (vitamin D3) 1,250 mcg (50,000 unit) capsule See Rx Instructions .ROUTE .COMPLEX Qty: 14 0RF Dose Instruction: Take 1 capsule by mouth once a week Rx Instructions: Take 1 capsule by mouth once a week Follow-up/Referrals: Pranay Klein MD [Primary Care Provider] - Time of Disposition: 12:00
== END 2024-10-24 12:07 | disposition home or self-care (01) ==
PROVIDERS: Emergency Provider Nurse Practitioner Family; PCP Family Medicine
DX: J40 Bronchitis, not specified as acute or chronic (principal); I10 Essential (primary) hypertension; E78.2 Mixed hyperlipidemia; I48.0 Paroxysmal atrial fibrillation; K22.70 Barrett's esophagus without dysplasia; G62.9 Polyneuropathy, unspecified; Z79.01 Long term (current) use of anticoagulants
CPT/HCPCS: 71046; 99213; G0463

== ENCOUNTER 2024-11-06 09:07 | Outpatient (CLI) | payer MEDICARE, SELFPAY ==
--- NOTE | ~2024-11-06 | CT_ITS ---
CT Scan of the Chest without Contrast: Clinical Indication: Disorder of diaphragm Technique: Contiguous sections were acquired throughout the chest without intravenous contrast. Dose reduction technique was used on this scan by utilizing automated exposure control and iterative recon struction technique. The dose-length product (DLP) was 362.60 mGy-cm. Findings: There is no evidence of any significant mediastinal, hilar or axillary lymphadenopathy. The mediastin al soft tissues appear normal. There is no evidence of pleural or pericardial effusion. The lungs are clear, aside from right basilar atelectatic change. Images through the upper abdomen reveal small calcified gallstone. There is diffuse elevation of the right hemidiaphragm. Impression: Diffuse elevation of the right hemidiaphragm. Right basilar atelectatic change. Reviewed, dictated and finalized at location . Impression: Diffuse elevation of the right hemidiaphragm. Right basilar atelectatic change.
--- OUTSIDE RECORDS SUMMARY | 2024-11-06 09:10 | XMS_ITS | Continuity of Care Document ---
Author Organization [facility] Address [address] [facility] [address] [place] [address] Phone Care Team Providers Care Shake Table Operator Name Role Phone Nicci Posadas Unavailable Unavailable Advance Directives Directive Yes / No Effective Date File Name No Information Encounters Encounter Description Practice Location Reason(s) For Visit Diagnoses Date Provider Providers Copied on Encounter [facility], [address] [place] [address] [address], [place], [place], [id number], [place] tel:[phone] [facility] No Information 1 Katharina Grajeda. [address] , [address], [place], [address], [place]. tel:[phone] Family History Family Member Type Diagnosis Age At Onset No Information Payers Payer name Insurance type Covered alliance party ID Authoriza tion(s) No Information Social History [...]
--- OUTSIDE RECORDS SUMMARY | 2024-11-06 09:11 | XMS_ITS | Data Portability ---
Author Organization [facility] Address [address] [place] [address] Care Team Providers Care Dermatology Technician Name Role Phone NELLIE MARKS Primary Care Provider Assessment Encounter Date Assessment Date Assessment LastModified [...] Abnormal Flag Note LastModifiedBy Organization Detail LastModifiedTime 01/11/2001/13/2020 pap, LB Pap test thin prep Negati [...] of E6/E7 viral mRNA. Resul ts flori horn lated with charlotte nt prese ntati on, histo ry, cervi karin cytol ogy and other clini karin and labor atory findi ngs. See https ://ww wLight Sciences Oncology/s ites/ defau lt/fi les/2 018-0 3/AW- 00143 _002_ 01.pd f for fur er infor matderrell n. Test perfo rmed by [facility], d/b/a [facility], [address], [facility] [address] , Trini Jiménez ra, DO, Labor atory Direc tor. HPV High Risk *HPV NOT DETEC MIRIAM (TYPE S 16, 18, 31, 33, 35, 39, 45, 51, 52, 56, 58, 59, 66, 68) *HPV: The human papil lomav irus (HPV) High Risk Eric escamilla is an FDA-a pprov ed in-vi tro ampli fied nucle ic acid test for the quali tativ e detec tion of E6/E7 viral mRNA. [facility] flori stevens be corre lated with charlotte nt prese ntati on, histo ry, cervi karin cytol ogy and other clini karin and labor atory findi ngs. See https ://Sentilla/s ites/ defau lt/fi les/2 018-0 3/AW- 53464 _002_ 01.pd f for furth er infor leeroy n. Test perfo rmed by [facility], d/b/a [employer], [address], [place] [address] , Trini Jiménez ra, DO, Labor atory Direc tor. End of Repor t Techn ical servi mayela provi ded by [employer], d/b/a [employer], [address] [place] [address] Adan Martins MD, Labor atory Direc tor. Case revie wed and diagn osis rende red at [employer], d/b/a [employer], [address] [place] [address] Adan Martins MD, Labor atory Direc tor. CONFI DENTI AL Not Available [facility] ([facility]) [address], [place], [address], 01/13/2020 11:31:18 01/11/20 20 01/13/2020 HPV DNA, high- risk HPV high risk NOT DETECT ED normal Not Available [facility] ([facility]) [address], [place], [address], 01/13/2020 11:31:18 01/20/20 21 01/19/2021 MAMMO , eric white, bilat eral No observ ation record ed. [facility] [address], [place], [address], 01/23/2021 17:08:32 Result Notes None recorded. Problems Name Problem SNOMED Code Status Onset Date Resolution Date Notes Provider Name and Address Organization Details Recorded Time SNOMED CT Concept Completed 201601/11/2021 Encntr for general adult medical exam w/o abnormal findings; Recorded Elsewhere : No Locati on: [facility] So urce: EHR Chron ic: N Practic e ID: [id number] Bill able Time: 02:00:[address] [facility] 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 17:26:22 Evaluati on finding [id number] Completed 201601/11/2021 Oth abn and inconclus deandre findings on dx imaging of breast;Re corded Elsewhere : No Locati on: [facility] So urce: EHR Chron ic: N Practic e ID: [id number] Bill able Time: 02:00:00 PM Isabel Fuller [facility] 17:26:15 Breast lump [id number] Completed 201601/11/2021 Unspecifi ed lump in breast;Re corded Elsewhere : No Locati on: [facility] So urce: EHR Chron ic: N Practic e ID: [id number] Bill able Time: 02:00:00 PM Isabel Fuller [facility] 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 1 17:26:20 Screenin g for malignan t neoplasm of rectum Completed 201601/11/2021 Encounter for screening for malignant neoplasm of rectum;Pr actice ID: [id number] [facility] 1 17:26:16 Problem Notes None recorded. Procedures Surgical History Date Name Laterality Status Provider Name and Address Organization Details Recorded Time 01/02/20 21 completed [facility] 01/12/2021 09:38:37 01/11/20 20 Date of Last Pap Smear completed [facility] 01/12/2021 09:47:02 12/20/19 18 Date of Last Mammogram completed [facility] 01/11/2021 17:28:05 reduction mammoplasty completed [facility] 01/11/2020 12:29:06 arthroscopic knee operation completed [facility] 01/11/2020 12:29:47 Imaging Results None recorded. Procedure Notes None recorded. Medical Equipment None Reported. Allergies Allergen ID Allergen Name Allergen Category Reaction Reaction Severity Criticality Documentation Date Start Date Code Code System Note Provider Name and Address Organization Details Recorded Time 2091 Zoloft medicatio n Not available Not available Not available 01/11/[address] [facility] 0 12:22:19 2092 Paxil medicatio n Not available Not available Not available 01/11/[address] [facility] 0 12:22:26 Medications Name [...] Prescrib ed Elsewher e: Yes Loca tion: [facility] odify By: [email or web address] z Encoun ter DateTime [...] Body mass index (BMI) Body weight Systolic And Diastolic Systolic And Diastolic Provider Name and Address Organization Details Last Updated DateTime 01/11/2020 165.1 cm 33.6 kg/m2 30688.66 g 167/87 mm[Hg] 147/84 mm[Hg] Danielle Cabrera [facility] 0 12:37:05 Date Recorded Body height Body mass index (BMI) Body weight Systolic And Diastolic Provider Name and Address Organization Details Last Updated DateTime 01/12/2021 162.56 cm 34 kg/m2 55295.29 g 138/81 mm[Hg] Isabel Fuller [facility] 01/12/2021 09:38:21 Social History Question Answer Notes LastModified by Organizat ion Details LastModified Time Tobacco Smoking Status Never Smoker Isabel Fuller [facility] 01/12/2021 09:38:45 Do You Have An [...] Or The Highest Degree You Have Received? 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 Occasional Information not available 01/11/2021 Mental Status Question Answer Note LastModified by Organization D etails LastModified Time Do you feel stressed (tense, restless, nervous, or anxious, or unable to sleep at night)? [id number] Information not available 01/12/2021 Family History Relationship [...] available 2019 12:47:08 Medical History Condition Response Other Y Anxiety Disorder Y Polyps Y Acid Reflux (GERD) Y Heart Problems Y Asthma Y Allergies (Food, seasonal, environmental ) Y History of STI Y Hypertension Y Gynecological History Statement/Question Response Date of [...] Diagnosis ICD10 Code Diagnosis Note Lis Wallace , [facility] [address] [address] 01/11/2020 12:05:23 01/11/2020 13:58:50 Gynecologic examination 59330026 Z01.419 Take Calcium with Vitamin D 12-1500mg daily. Do monthly self breast exams. It is advised to get annual flu shot in the fall and she could obtain at [facility] or [facility] care clinic. If you haven't [...] once 65+ per asccp unless otherwise indicated. [address] ADRIANA [facility] [address] [address] 01/12/2021 09:24:18 01/12/2021 10:27:06 Gynecologic examination 35936670 Z01.419 Take Calcium with Vitamin D 12-1500mg daily. Do monthly self breast exams. It is advised to get annual flu shot in the fall and she could obtain at [facility] or [facility] clinic. 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 Health Concerns Section Related Observation LastModified by Organization Detai ls LastModified Time None Recorded Concern Status LastModified by Organization Details LastModified Time None Recorded Advance Directives Directive Y: Payers Insurance Date Sequence Insurance Name Policy Number Policy Carpenter Covered Member ID Carpenter Member ID Guarantor Name 01/15/2021 1 [employer] [id number] Unique Marie [id number] Unique Marie Notes Date Note Type Note [...] colonoscopy screening ALAN Knight [address], [place], [address], [facility] 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 01/12/2021 10:03:09 OBGyn Episode Ob Episode Information Episode Created Date Number of Fetuses Patient Bloodtype Patient rh Status Prepregnancy Weight lbs Domestic Partner Domestic Partner Phone Father Name Recycle Coordinator Status 01/11/20 20 1 CLOSED Fetus Data [...] Domestic Partner Domestic Partner Phone Father Name Recycle Coordinator Status 01/11/20 20 1 CLOSED Fetus Data [...]
--- OUTSIDE RECORDS SUMMARY | 2024-11-06 09:11 | XMS_ITS | Referral Summary ---
Author Organization [facility] [address] Address [address] [place] [address] Care Team Providers Care Program Host Name Role Phone Chente Meredith MD Unavailable Shyanne Ramos MD Unavailable [phone] Pranay Conteh MD Primary Care Provider [phone] Encounters Date Type Department Care Team Description 10/21/2024 Orders Only [facility], Provider 10/08/2024 Results Follow-Up [facility] at [address] [address] Di Jeffers NP XR Chest Pa Lateral 2 Views 10/08/2024 12:45 PM CDT Ancillary Procedure [facility] Imaging at [address] [address] Acute cough 10/08/2024 12:45 PM CDT Office Visit [facility] at [address] [address] Di Jeffers NP Acute cough (Primary Dx); Mild intermittent asthma with exacerbation 09/09/2024 2:30 PM CDT Office Visit [facility] [address] [place] [address] Yan Foster MD SINGH on CPAP (Primary Dx) 08/12/2024 Orders Only [facility] [address], [place] [address] Nile Garcia III, MD from Last 3 Months Allergies Active Allergy [...] by mouth once a week 3 Active hydroCHLOROthiaz geovanni (HYDRODIURIL) 25 mg tablet Take 1 tablet (25 mg total) by mouth daily 90 tablet 1 4 Active metoprolol (LOPRESSOR) 100 mg tablet Take 1 tablet (100 mg total) by mouth 2 (two) times a day 180 tablet 3 4 Active cyclobenzaprine (FLEXERIL) 5 mg tabletIndication s:Acute right-sided low back pain with sciatica, sciatica laterality unspecified Take 1 tablet (5 mg total) by mouth 3 (three) times a day as needed for muscle spasms 30 tablet 5 Active Additional Information Patient not taking.Reported on 10/08/2024 rivaroxaban (Xarelto) 20 mg tablet Take 1 tablet (20 mg total) by mouth daily 90 tablet 2 5 Active metoprolol tartrate (LOPRESSOR) 25 mg immediate release tablet Take 1 tablet (25 mg total) by mouth 2 (two) times a day 180 tablet 2 5 Active flecainide (TAMBOCOR) 100 mg tabletIndication s:Paroxysmal atrial fibrillation (HCC) TAKE 1 TABLET TWICE A DAY 180 tablet 3 5 Active azithromycin (ZITHROMAX) 250 mg tabletIndication s:Acute cough,Mild intermittent asthma with exacerbation Take 2 tabs (500 mg) by mouth today, than 1 tab (250 mg) daily for 4 days. 6 tablet 5 025 predniSONE (DELTASONE) 20 mg tabletIndication s:Acute cough,Mild intermittent asthma with exacerbation Take 1 tablet (20 mg) by mouth 2 (two) times a day for 3 days 6 tablet 5 025 Active Problems Problem Noted Date Diagnosed Date Hyperlipidemia 12/12/2023 Chronic fatigue 12/18/2022 Enthesopathy of hip region 04/16/2022 Lesion of ulnar nerve 04/16/2022 Low back pain 04/16/2022 BMI 31.0-31.9,adult 10/12/2020 SINGH on CPAP 10/12/2020 Sensation of fullness in ear 08/21/2020 Adenomatous polyps 01/31/2020 Overview (01/31/2020): Added automatically from request for surgery [id number] Gastric polyps 01/31/2020 Overview (01/31/2020): Added automatically from request for surgery [id number] Chest pain 07/27/2019 Adenomatous polyp 04/07/2019 Overview (04/07/2019): Added automatically from request for surgery [id number] PAT (paroxysmal atrial tachycardia) 11/13/2016 Palpitations 11/13/2016 [...] daily Assessment & Plan (03/26/2022 10:52 AM MEDICAL RECEPTION): Highly symptomatic atrial fibrillation with high arrhythmia [...] ablation. She understands and wishes to proceed. [id number] = 3. Anticoagulation is indicated. 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 Adiposity 03/06/2016 Overview (07/25/2016): Obesity (BMI 30.0-34.9) [...] on file Legal Sex Female 11:36 PM MEDICAL RECEPTION Gender Identity Not on file Sexual Orientation Not on file Last Filed Vital Signs Vital Sign Reading Time Taken Comments Blood Pressure 141/71 10/08/2024 12:24 PM CDT Pulse 65 10/08/2024 12:24 PM CDT Temperature 36.5 C (97.7 F) 10/08/2024 12:24 PM CDT Respiratory Rate 20 10/08/2024 12:24 PM CDT Oxygen Saturation 99% 10/08/2024 12:24 PM CDT Inhaled Oxygen Concentration - - Weight 86.2 kg (190 lb) 10/08/2024 12:24 PM CDT Height 165.1 cm (5' 5) 09/09/2024 2:13 PM CDT Body Mass Index 31.62 09/09/2024 2:13 PM CDT Plan of Treatment Not on file Procedures Procedure Name Priority Date/Time Associated Diagnosis Comments SLEEP LAB/STUDY - RESULT 10/21/2024 4:59 PM CDT XR CHEST PA LATERAL 2 VIEWS Schedule ASMITA, Read ASMITA (Appt Today, Awaiting Results) 10/08/2024 12:55 PM CDT Acute cough BASIC METABOLIC PANEL Routine 08/12/2024 1:43 PM CDT CBC WITH AUTO DIFFERENTIAL Routine 08/12/2024 11:04 AM CDT CBC WITH AUTO DIFFERENTIAL Routine 08/11/2024 8:15 AM CDT Cardiac arrhythmia, unspecified cardiac arrhythmia type BASIC METABOLIC PANEL Routine 08/11/2024 8:15 AM CDT Cardiac arrhythmia, unspecified cardiac arrhythmia type COLONOSCOPY 12/21/2020 9:20 AM CDT SERUM HEPATITIS PANEL Routine 10/06/2015 7:58 AM CDT from Last 3 Months or Most Recently Relevant to Health Maintenance Results * SLEEP LAB/STUDY - RESULT (10/21/2024 4:59 PM CDT) us Provider Scanning Final Result * XR Chest Pa Lateral 2 Views (10/08/2024 12:55 PM CDT) Anatomical Region Laterality Modality Body, Chest N/A Digital Radiogra phy 10/08/2024 3:24 PM CDT Narrative 10/08/2024 3:29 PM CDT EXAM DESCRIPTION: XR CHEST PA LATERAL 2 VIEWS REASON FOR STUDY: COUGH Pt complains of cough x 1 week. Hx breast reduction. Hx asthma and a fib. No cancer. No smoking hx TECHNIQUE: PA and lateral radiographic view(s) of the chest. COMPARISON: None FINDINGS: LUNGS: Dtjlcaoo-fl-dxzhua elevation of the right hemidiaphragm. Predominantly streaky right basilar opacities most likely relate to atelectasis, but pneumonia can not be completely excluded. Minimal streaky left basilar opacities are most suggestive of subsegmental atelectasis or scarring. No other focal infiltrates. HEART/MEDIASTINUM: Cardiac silhouette upper limits of normal in size. Mediastinal and hilar contours appear normal. LINES/TUBES: None. BONES: No acute osseous abnormality. IMPRESSION: 1. Caplicoh-ca-rwuyex elevation of right hemidiaphragm. 2. Predominantly streaky right basilar opacities most likely relate to atelectasis, but pneumonia can not be completely excluded. 3. Minimal streaky left basilar opacities are most suggestive of subsegmental atelectasis or scarring. THIS IS AN ELECTRONICALLY VERIFIED FINAL REPORT 10/08/2024 3:29 PM - Electronically signed by Hakan CRUZ T: Report ID: [id number] Reading Location: [place] [address] Procedure Note Hakan Horn MD - 10/08/2024 EXAM DESCRIPTION: XR CHEST PA LATERAL 2 VIEWS REASON FOR STUDY: COUGH Pt complains of cough x 1 week. Hx breast reduction. Hx asthma and a fib.No cancer. No smoking hx TECHNIQUE: PA and lateral radiographic view(s) of the chest. COMPARISON: None FINDINGS: LUNGS: Iqaxqnfh-br-rrihkz elevation of the right hemidiaphragm. Predominantly streaky right basilar opacities most likely relate to atelectasis, but pneumonia can not be completely excluded. Minimalstreaky left basilar opacities are most suggestive of subsegmental atelectasis or scarring. No other focal infiltrates. HEART/MEDIASTINUM: Cardiac silhouette upper limits of normal in size. Mediastinal and hilar contours appear normal. LINES/TUBES: None. BONES: No acute osseous abnormality. IMPRESSION: 1. Ygyinkoo-jn-rdguyi elevation of right hemidiaphragm. 2. Predominantly streaky right basilar opacities most likely relate to atelectasis, but pneumonia can not be completely excluded. 3. Minimal streaky left basilar opacities are most suggestive of subsegmental atelectasis or scarring. THIS IS AN ELECTRONICALLY VERIFIED FINAL REPORT 10/08/2024 3:29 PM - Electronically signed by Hakan Horn M.D. RB T: Report ID: [id number] Reading Location: [id number] Di Jeffers FINANCIAL SERVICES DIRECTOR IMG XR PROCEDURES Final Re sult * Basic metabolic panel (08/12/2024 1:43 PM CDT) Blood Nile Garcia III, MD LAB BLOOD ORDERABLE S Final Result * CBC with auto differential (08/12/2024 11:04 AM CDT) Blood Nile Garcia III, MD LAB BLOOD ORDERABLE [...] - 08/12/2024 12:07 AM CDT Performed at: [address] [place] [id number] Weaving Teacher: Jose España PhD, Phone: [phone] us Nile Garcia III, MD LAB BLOOD ORDERABLE S Final Result [facility] - 01 * (ABNORMAL) Basic metabolic panel (08/11/2024 8:15 AM CDT) Pathologist [facility] Glucose 127(H) 70 - 99 mg/dL [facility] [...] - 08/12/2024 1:07 AM CDT Performed at: - [address] [id number] Weaving Teacher: Jose España PhD, Phone: [phone] us Nile Garcia III, MD LAB BLOOD ORDERABLE S Final Result [facility] - 01 * COLONOSCOPY (12/21/2020 9:20 AM CDT) Anatomical Region Laterality Modality Other Narrative Procedure Note Patti Burris MD - 12/21/2020 9:20 AM CDT [facility] Patient Name: Unique Marie Procedure Date: 12/21/2020 9:20 AM Date of : 1955 Admit Type: Outpatient Age: 65 Gender: Female Attending MD: Patti Burris M.D. Room: [facility] ENDOSCOPY ROOM 9 Note Status: Finalized Procedure: [...] The scope was passed under direct vision.The [id number] endoscope was introduced through the anus and advanced to the cecum, identified by appendiceal orifice and ileocecal valve. The colonoscopy was performed without difficulty. The patient tolerated the procedure well. The qualityof the bowel preparation was evaluated using the BBPS ([place] Pool Bowel Preparation Scale) with scores of:Right Colon [...] 7 days, please contact my office at [phone]. Attending Participation: I personally performed the entire procedure. Electronically signed by Patit Burris MD Patti Burris M.D. 12/21/2020 10:13:33 AM . Number of Addenda: 0 Note Initiated On: 12/21/2020 9:20 AM Recognized by the [employer] for promoting quality [...] with a HCV Nucleic Acid Amplification test (151637). Serum 10/06/2015 7:58 AM CDT Historical Provider LAB BLOOD ORDERABLES Milady willson Result HISTORICAL RESULTS from Last 3 Months or Most Recently Relevant to Health Maintenance Insurance MEDICARE [facility] MEDICARE [facility] MEDICARE [employer] Advance Directives For more information, please contact: [phone] * Full Code (Latest Code Status on File) Date Activated Date Inactivated Comments 12/21/2020 8:21 AM 12/21/2020 3:20 PM Care Teams Program Host Relationship Specialty Start Date End Date Pranay Klein MD [address] [place] [address] PCP - General Family Practice 12/18/22 Chente Meredith MD Consulting Physician Cardiology 10/12/20 Shyanne Ramos MD [address] [place] [address] Consulting Physician Otolaryngology 10/12/20
--- OUTSIDE RECORDS SUMMARY | 2024-11-06 09:11 | XMS_ITS | Encounter Summary ---
Author Organization [facility] Healthcare Address [address] [place] [address] Care Team Providers Care Glassblower Name Role Phone Chente Meredith MD Unavailable [phone] Shyanne Ramos MD Unavailable [phone] [facility] Pranay Klein MD Primary Care Provider [phone] Encounter Details Date Type Department Care Team (Late st Contact Info) Description 10/08/2024 Results Follow-Up 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
--- OUTSIDE RECORDS SUMMARY | 2024-11-06 09:11 | XMS_ITS | Clinical Summary ---
Author Organization [facility] [address] Address [address] [place] [address] Care Team Providers Care Farmworker Dairy Name Role Phone Chente Meredith MD Unavailable [phone] Shyanne Ramos MD Unavailable [phone] Pranay Klein MD Primary Care Provider [phone] Allergies Active Allergy Reactions Criticality Noted Date [...] (01/31/2020): Added automatically from request for surgery [id number] Gastric polyps 01/31/2020 Overview (01/31/2020): Added automatically from request for surgery [id number] Chest pain 07/27/2019 Adenomatous polyp 04/07/2019 Overview (04/07/2019): Added automatically from request for surgery [id number] PAT (paroxysmal atrial tachycardia) 11/13/2016 Palpitations 11/13/2016 [...] daily Assessment & Plan (03/26/2022 10:52 AM QI SPECIALIST): Highly symptomatic atrial fibrillation with high arrhythmia [...] ablation. She understands and wishes to proceed. [id number] = 3. Anticoagulation is indicated. --Will arrange [...] continue to follow up with her regular mirror installer. Adiposity 03/06/2016 Overview (07/25/2016): Obesity (BMI 30.0-34.9) [...] Care Team Description 10/21/2024 Orders Only [facility], Provider 10/08/2024 12:45 PM CDT Ancillary Procedure [facility] Imaging at [address] [address] Acute cough 10/08/2024 12:45 PM CDT Office Visit [facility] at [address] [id number] Di Jeffers, LALY Acute cough (Primary Dx); Mild intermittent asthma with exacerbation 10/08/2024 Results Follow-Up [facility] at [address] [id number] Di Jeffers, LALY XR Chest Pa Lateral 2 Views 09/09/2024 2:30 PM CDT Office Visit [facility] [address] 6[address] [place] [address] Yan Foster MD SINGH on CPAP (Primary Dx) 08/12/2024 Orders Only [facility] [address] [place] [address] Nile Garcia III, MD from Last 3 Months Immunizations Immunization Administration Dates Next Due Influenza, Quadrivalent, Split, Intramuscular Influenza, Trivalent, Recomb inant, Egg Free, Preservative Free, Antibiotic Free, IM (FLUBLOK) 12/20/2013 Tdap 04/21/2010 Surgical History Surgery Date Site/Laterality Comments REDUCTION MAMMOPLASTY Breast Reduction KNEE ARTHROSCOPY Arthroscopy knee BREAST SURGERY Breast reduction COLONOSCOPY UPPER GASTROINTESTINAL ENDOSCOPY Medical History Medical History Date Comments Asthma 1979 Asthma; [place] [facility] [place] - Neuropathy 2012 Neuropathy; Comm ents: [facility] 06/27/2014 - Gonzalez's esophagus 1998 Barretts eso phagitis; Comments[place] [facility] [place] - Last Upper GI 2014- Normal Anxiety disorder 1994 Anxiety Atrial fibrillation (HCC) Sleep apnea Colon polyp GERD (gastroesophageal reflux disease) Dysphagia Chronic diarrhea Hypertension Cancer (HCC) hx skin cancer Family History Medical History Relation Name Comments Alzheimer's disease Father [facility] Alzheime r's disease; Diabetes Father [facility] Diabetes mellit ; Heart disease Father [facility] Cardiovascular disease; Other Father [facility] Blood disorder; Other Mother Genetic disease ; Stomach cancer Other Aunt Thyroid cancer Sister Relation Name Status Comments Father [facility] Mother Other Aunt Other Fathers side Sister [...] on file Legal Sex Female 11:36 PM QI SPECIALIST Gender Identity Not on file Sexual Orientation [...] season) 2023 06/02/2020, 05/12/2020 Influenza Vaccine (#1) 2024 5, 12/20/2013, 05/04/2012 Colon Cancer Screening-Colonoscopy 12/21/2030 12/21/2020, 11/16/2015 Hepatitis C Screening Completed 10/06/2015 Colon Cancer Screening-CT Colonography Discontinued 12/21/2020, 11/16/2015 Colon Cancer Screening-DNA Stool Discontinued 12/22/19 21, 11/16/2015 Colon Cancer Screening-FIT Discontinued 12/21/2020, Colon [...] of the chest. COMPARISON: None FINDINGS: LUNGS: Rmuwtkes-ox-juabom elevation of the right hemidiaphragm. Predominantly streaky right basilar opacities most likely relate to atelectasis, but pneumonia can not be completely excluded. Minimal streaky left basilar opacities are most suggestive of subsegmental atelectasis or scarring. No other focal infiltrates. HEART/MEDIASTINUM: Cardiac silhouette upper limits of normal in size. Mediastinal and hilar contours appear normal. LINES/TUBES: None. BONES: No acute osseous abnormality. IMPRESSION: 1. Iskeltad-yw-zjdfrv elevation of right hemidiaphragm. 2. Predominantly streaky right basilar opacities most likely relate to atelectasis, but pneumonia can not be completely excluded. 3. Minimal streaky left basilar opacities are most suggestive of subsegmental atelectasis or scarring. THIS IS AN ELECTRONICALLY VERIFIED FINAL REPORT 10/08/2024 3:29 PM - Electronically signed by Hakan Horn M.D. RB T: Report ID: [id number] Reading Location: [id number] Procedure Note Hakan Horn MD - 10/08/2024 EXAM DESCRIPTION: XR CHEST PA LATERAL 2 VIEWS REASON FOR STUDY: COUGH Pt complains of cough x 1 week. Hx breast reduction. Hx asthma and a fib.No cancer. No smoking hx TECHNIQUE: PA and lateral radiographic view(s) of the chest. COMPARISON: None FINDINGS: LUNGS: Cenpmxep-dk-pnpoyq elevation of the right hemidiaphragm. Predominantly streaky right basilar opacities most likely relate to atelectasis, but pneumonia can not be completely excluded. Minimalstreaky left basilar opacities are most suggestive of subsegmental atelectasis or scarring. No other focal infiltrates. HEART/MEDIASTINUM: Cardiac silhouette upper limits of normal in size. Mediastinal and hilar contours appear normal. LINES/TUBES: None. BONES: No acute osseous abnormality. IMPRESSION: 1. Vixzmizv-ey-ubquzl elevation of right hemidiaphragm. 2. Predominantly streaky right basilar opacities most likely relate to atelectasis, but pneumonia can not be completely excluded. 3. Minimal streaky left basilar opacities are most suggestive of subsegmental atelectasis or scarring. THIS IS AN ELECTRONICALLY VERIFIED FINAL REPORT 10/08/2024 3:29 PM - Electronically signed by Hakan Horn M.D. RB T: Report ID: [id number] Reading Location: [id number] Di Jeffers RIG BUILDER HELPER IMG XR PROCEDURES Final Re sult * [...] - 08/12/2024 12:07 AM CDT Performed at: [address] [place] [id number] Creping Machine Operator Helper: Jose España PhD, Phone: [phone] us Nile Garcia III, MD LAB BLOOD ORDERABLE S Final Result [facility] * (ABNORMAL) Basic metabolic panel (08/11/2024 8:15 AM CDT) Pathologist [facility] Glucose 127(H) 70 - 99 mg/dL [facility] [...] - 08/12/2024 1:07 AM CDT Performed at: [address] [id number] Creping Machine Operator Helper: Jose España PhD, Phone: [phone] us Nile Garcia III, MD LAB BLOOD ORDERABLE S Final Result [facility] - 01 * COLONOSCOPY (12/21/2020 9:20 AM CDT) Anatomical Region Laterality Modality Other Narrative Procedure Note Patti Burris MD - 12/21/2020 9:20 AM CDT [facility] ENDOS[facility] Patient Name: Unique Marie Procedure Date: 12/21/2020 9:20 AM Date of : 1955 Admit Type: Outpatient Age: 65 Gender: Female Attending MD: Patti Burris M.D. Room: [facility] ENDOSCOPY ROOM 9 Note Status: Finalized Procedure: [...] The scope was passed under direct vision.The [id number] endoscope was introduced through the anus and advanced to the cecum, identified by appendiceal orifice and ileocecal valve. The colonoscopy was performed without difficulty. The patient tolerated the procedure well. The qualityof the bowel preparation was evaluated using the BBPS ([place] Bowel Preparation Scale) with scores of:Right Colon [...] 7 days, please contact my office at [phone]. Attending Participation: I personally performed the entire procedure. Electronically signed by Patti Burris MD Patti Burris M.D. 12/21/2020 10:13:33 AM . Number of Addenda: 0 Note Initiated On: 12/21/2020 9:20 AM Recognized by the [place] [employer] for promoting quality [...] with a HCV Nucleic Acid Amplification test ([id number]). Serum 10/06/2015 7:58 AM CDT Historical Provider LAB BLOOD ORDERABLES Milady willson Result HISTORICAL RESULTS from Last 3 Months or Most Recently Relevant to Health Maintenance Insurance MEDICARE [facility] MEDICARE [facility] MEDICARE [employer] Advance Directives For more information, please contact: [phone] * Full Code (Latest Code Status on File) Date Activated Date Inactivated Comments 12/21/2020 8:21 AM 12/21/2020 3:20 PM Care Teams Farmworker Dairy Relationship Specialty Start Date End Date Pranay Klein MD [address] [place] [address] PCP - General Family Practice 12/18/22 Chente Meredith MD Consulting Physician Cardiology 10/12/20 Shyanne Ramos MD [address] [place] [address] Consulting Physician Otolaryngology 10/12/20
--- OUTSIDE RECORDS SUMMARY | 2024-11-06 09:11 | XMS_ITS | Clinical Summary ---
Author Organization [facility] [employer] Address [address] [place] [address] Care Team Providers Care Nut Cracker Name Role Phone Koffi Sharma MD Unavailable [phone] Kathy House MD Primary Care Provider [phone] Patti Burris MD Unavailable [phone] Source Comments [facility] [employer],non-owned Affiliates and Associated Physician Practices is amultiple site organization consisting of ambulatory clinics and hospital sitesin [place] and [place]. This disclosure is being madepursuant to the Care Everywhere program and may not contain all information available regarding this patient. Last updated 18.[facility] [employer] Allergies Active Allergy Reactions Criticality Noted Date [...] propionate (FLONASE) 50 MCG/ACT nasal sprayIndications :Asthma Cornelius 2 Sprays into each nostril daily. 16 [...] Tubular adenoma only 11/16/2015, Dr. Patti Burris, [facility] Palpitations 02/07/2011 Barretts esophagus 12/21/2009 Overview [...] on file Legal Sex Female 6:23 AM FIRE CONTROL TECHNICIAN Gender Identity Not on file Sexual Orientation [...] Td or Tdap) 12/22/2019 12/21/2009 COVID-19 VACCINE (1 - season) 2023 DEPRESSION SCREENING 04/21/2024 INFLUENZA VACCINE (#1) 2024 COLONOSCOPY - COLON CA SCREENING 11/15/2025 [...] Routine 11/16/2015 LIPID PROFILE 03/14/2010 9:24 AM FIRE CONTROL TECHNICIAN DEXA BONE DENSITY 2 SITES Routine 01/30/2010 [...] in the care of your patient. [facility] utilizes [employer] as a reminder system to notify patients of their next recommended mammogram. us Jason Cid MD MAMMO ORDERABLES Final Resul t * ENDOSCOPY, COLON, SCREENING (11/16/2015) us Provider Unknown GI PROCEDURE ORDERABLES Final R esult * (ABNORMAL) LIPID PROFILE (03/14/2010 9:24 AM FIRE CONTROL TECHNICIAN) Cholesterol 209(H) 125 - 200 mg/dL [facility] Comment: Test Performed at: [facility] [address] [place] [address] KANNAN STEEL DO,MPH HDL Cholesterol 47 > OR = 46 mg/dL [facility] Triglycerides 244(H) <150 mg/dL [facility] LDL Calculated 113 <130 mg/dL (calc) [facility] Comment: Desirable range <100 mg/dL for patients with CHD or diabetes and <70 mg/dL for diabetic patients with known heart disease. CHOL/HDLC RATIO 4.4 < OR = 5.0 (calc) [facility] 03/14/2010 9:24 AM FIRE CONTROL TECHNICIAN 03/15/2010 12:46 AM FIRE CONTROL TECHNICIAN Koffi Sharma MD LAB - CHEMISTRY ORDERABLES Fi nal Result [facility] [address] [place] [address] * DEXA BONE DENSITY 2 SITES (01/30/2010 [...] Recently Relevant to Health Maintenance Care Teams Nut Cracker Relationship Specialty Start Date End Date Koffi Sharma MD [address] [facility] [address] [place] [id number] PCP - OBGYN 10/03/08 Kathy House MD [facility] [address] [place] [address] PCP - General Family Medicine 06/28/14 Patti Burris MD [address] [place] [address] Gastroenterology 11/21/15
== END 2024-11-06 09:08 | disposition home or self-care (01) ==
PROVIDERS: PCP Nurse Practitioner Family; Visit Provider Nurse Practitioner Family
DX: R06.09 Other forms of dyspnea (principal); R05.9 Cough, unspecified; R91.8 Other nonspecific abnormal finding of lung field
CPT/HCPCS: 71250

== ENCOUNTER 2024-11-11 10:03 | Outpatient (CLI) | payer MEDICARE, SELFPAY ==
--- OUTSIDE RECORDS SUMMARY | 2024-11-11 10:08 | XMS_ITS | Clinical Summary ---
Author Organization [facility] [employer] Address [address] [place] [address] Care Team Providers Care Logging Operations Inspector Name Role Phone Koffi Sharma MD Unavailable [phone] Kathy House MD Primary Care Provider [phone] Patti Burris MD Unavailable [phone] Source Comments [facility],non-owned Affiliates and Associated Physician Practices is amultiple site organization consisting of ambulatory clinics and hospital sitesin [place], [place], [place] and [place]. This disclosure is being madepursuant to the Care Everywhere program and may not contain all information available regarding this patient. Last updated 18.[facility] Allergies Active Allergy Reactions Criticality Noted Date [...] propionate (FLONASE) 50 MCG/ACT nasal sprayIndications :Asthma Bumpass 2 Sprays into each nostril daily. 16 [...] Tubular adenoma only 11/16/2015, Dr. Patti Burris, [facility] Palpitations 02/07/2011 Barretts esophagus 12/21/2009 Overview (07/31/2010): [...] on file Legal Sex Female 6:23 AM ASSOCIATE RELATIONS SPECIALIST Gender Identity Not on file Sexual [...] Routine 11/16/2015 LIPID PROFILE 03/14/2010 9:24 AM ASSOCIATE RELATIONS SPECIALIST DEXA BONE DENSITY 2 SITES Routine 01/30/2010 [...] participate in the care of your patient. [facility] utilizes [employer] as a reminder system to notify patients of their next recommended mammogram. us Jason Cid MD MAMMO ORDERABLES Final Resul t * ENDOSCOPY, COLON, SCREENING (11/16/2015) us Provider Unknown GI PROCEDURE ORDERABLES Final R esult * (ABNORMAL) LIPID PROFILE (03/14/2010 9:24 AM ASSOCIATE RELATIONS SPECIALIST) Cholesterol 209(H) 125 - 200 mg/dL [facility] Comment: Test Performed at: [employer] [address] [place] [address] KANNAN STEEL DO,MPH HDL Cholesterol 47 > OR = 46 mg/dL [facility] Triglycerides 244(H) <150 mg/dL [facility] LDL Calculated 113 <130 mg/dL (calc) [facility] Comment: Desirable range <100 mg/dL for patients with CHD or diabetes and <70 mg/dL for diabetic patients with known heart disease. CHOL/HDLC RATIO 4.4 < OR = 5.0 (calc) [facility] 03/14/2010 9:24 AM ASSOCIATE RELATIONS SPECIALIST 03/15/2010 12:46 AM ASSOCIATE RELATIONS SPECIALIST Koffi Sharma MD LAB - CHEMISTRY ORDERABLES Fi nal Result [facility] [address] [place] [address] * DEXA BONE DENSITY 2 SITES (01/30/2010 [...] Recently Relevant to Health Maintenance Care Teams Logging Operations Inspector Relationship Specialty Start Date End Date Koffi Sharma MD [address] [place] [id number] PCP - OBGYN 10/03/08 Kathy House MD [facility] [address] [facility] [facility] [address] [place] [address] PCP - General Family Medicine 06/28/14 Patti Burris MD [address] [place] [address] Gastroenterology 11/21/15
--- OUTSIDE RECORDS SUMMARY | 2024-11-11 10:08 | XMS_ITS | Data Portability ---
Author Organization [facility] Address [address] [place] [address] Care Team Providers Care Finishing Range Feeder Name Role Phone NELLIE MARKS Primary Care [...] activ e compu ter syste m which vj ts the lab in the scree cindy [...] labor atory findi ngs. See https ://ww wPriztag/s ites/ defau lt/fi les/2 018-0 3/AW- 42284 _002_ 01.pd f for fur er infor matderrell n. Test perfo rmed by [facility], d/b/a [facility], [address], [facility] [place] [facility] [place] [address] , Trini Jiménez ra, DO, Labor atory [...] e detec tion of E6/E7 viral mRNA. [facility] flori stevens be corre lated with charlotte nt prese ntati on, histo ry, cervi karin cytol ogy and other clini karin and labor atory findi ngs. See https ://Siving Egil Kvaleberg/s ites/ defau lt/fi les/2 018-0 3/AW- 95757 _002_ 01.pd f for furth er infor leeroy n. Test [facility] by [facility], d/b/a [facility], [address], [place] [address] , Trini Jiménez ra, DO, Labor atory Direc tor. End of Repor t Techn ical servi mayela provi ded by [facility], d/b/a [facility], [address] [place] [address] Adan Martins MD, Labor atory Direc tor. Case revie wed and diagn osis rende red at [facility], d/b/a [facility], [address] [place] [address] Adan Martins MD, Labor atory Direc tor. CONFI DENTI AL Not Available [facility] ([facility]) [address], [place], [address], 01/13/2020 11:31:18 01/11/20 20 01/13/2020 HPV DNA, high- risk HPV high risk NOT DETECT ED normal Not Available [facility] ([facility]) [address], [place], [address], 01/13/2020 11:31:18 01/20/20 21 01/19/2021 MAMMO , eric white, bilat eral No observ ation record ed. [facility] [address], [place], [address], 01/23/2021 17:08:32 Result Notes None recorded. Problems Name Problem SNOMED Code Status Onset Date Resolution Date Notes Provider Name and Address Organization Details Recorded Time SNOMED CT Concept Completed 201601/11/2021 Encntr for general adult medical exam w/o abnormal findings; Recorded Elsewhere : No Locati on: [facility] So urce: EHR Chron ic: N Practic e ID: [id number] Bill able Time: 02:00:00 PM Isabel [facility] 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 17:26:22 Evaluati on finding [id number] Completed 201601/11/2021 Oth abn and inconclus deandre findings on dx imaging of breast;Re corded Elsewhere : No Locati on: [facility] So urce: EHR Chron ic: N Practic e ID: [id number] Bill able Time: 02:00:00 PM Isabel Fuller [facility] 17:26:15 Breast lump [id number] Completed 201601/11/2021 Unspecifi ed lump in breast;Re corded Elsewhere : No Locati on: [facility] So urce: EHR Chron ic: N Practic e ID: [id number] Bill able Time: 02:00:00 PM Isabel Fuller [facility] 17:26:[address] Concept Completed 201601/11/2021 Encntr for concrete float maker exam (general) (routine) w abnormal findings; Practice ID: [id number] Isabel [facility] 1 17:26:20 Screenin g for malignan t neoplasm of rectum Completed 201601/11/2021 Encounter for screening for malignant neoplasm of rectum;Pr actice ID: 0001 Isabel [facility] 1 17:26:16 Problem Notes None recorded. Procedures Surgical History Date Name Laterality Status Provider Name and Address Organization Details Recorded Time 01/02/20 21 completed [facility] 01/12/2021 09:38:37 01/11/20 20 Date of Last Pap Smear completed [facility] 01/12/2021 09:47:02 12/20/19 18 Date of Last Mammogram completed [facility] 01/11/2021 17:28:05 reduction mammoplasty completed [facility] 01/11/2020 12:29:06 arthroscopic knee operation completed [facility] 01/11/2020 12:29:47 Imaging Results None recorded. Procedure Notes None recorded. Medical Equipment None Reported. Allergies Allergen ID Allergen Name Allergen Category Reaction Reaction Severity Criticality Documentation Date Start Date Code Code System Note Provider Name and Address Organization Details Recorded Time 2091 Zoloft medicatio n Not available Not available Not available 01/11/2020 13108 RxNorm [facility] 0 12:22:19 2092 Paxil medicatio n Not available Not available Not available 01/11/2020 70709 8 RxNorm [facility] 0 12:22:26 Medications Name Sig Start [...] Prescrib ed Elsewher e: Yes Loca tion: [facility] odify By: [email or web address] z Encoun ter DateTime [...] Updated DateTime 01/11/2020 165.1 cm 33.6 kg/m2 91373.66 g 167/87 mm[Hg] 147/84 mm[Hg] Danielle Cabrera [facility] 0 12:37:05 Date Recorded Body height Body mass index (BMI) Body weight Systolic And Diastolic Provider Name and Address Organization Details Last Updated DateTime 01/12/2021 162.56 cm 34 kg/m2 58139.29 g 138/81 mm[Hg] Isabel Fuller [facility] 01/12/2021 09:38:21 Social History Question Answer Notes LastModified by Organizat ion Details LastModified Time Tobacco Smoking Status Never Smoker Isabel Fuller [facility] 01/12/2021 09:38:45 Do You Have An [...] Or The Highest Degree You Have Received? 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 Occasional Information not available 01/11/2021 Mental Status Question Answer Note LastModified by Organization D etails LastModified Time Do you feel stressed (tense, restless, nervous, or anxious, or unable to sleep at night)? [id number] Information not available 01/12/2021 Family History Relationship [...] ICD10 Code Diagnosis Note Lis Wallace , [facility] [address] [address] 01/11/2020 12:05:23 01/11/2020 13:58:50 Gynecologic examination 35955019 Z01.419 Take Calcium with Vitamin D 12-1500mg daily. Do monthly self breast exams. It is advised to get annual flu shot in the fall and she could obtain at [facility] or [facility] care clinic. If you haven't received the [...] once 65+ per asccp unless otherwise indicated. [address] ADRIANA Knight-[facility] [address] [address] 01/12/2021 09:24:18 01/12/2021 10:27:06 Gynecologic examination 16463438 Z01.419 Take Calcium with Vitamin D 12-1500mg daily. Do monthly self breast exams. It is advised to get annual flu shot in the fall and she could obtain at [facility] or [facility] clinic. 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 Health Concerns Section Related Observation LastModified by Organization Detai ls LastModified Time None Recorded Concern Status LastModified by Organization Details LastModified Time None Recorded Advance Directives Directive Y: Payers Insurance Date Sequence Insurance Name Policy Number Policy Carpenter Covered Member ID Carpenter Member ID Guarantor Name 01/15/2021 1 [employer] [id number] Unique Marie [id number] Unique Marie Notes Date Note Type Note Provider Name and Address Organization Details Recorded Time 0 text/html Annual GYNReported by PatientHistoryFor history, patient reportsno gynecologic complaints.Genitourinary symptomsFor menstrual cycle, patient reportsnormal menses. For urinary symptoms, patient reportsno hematuriaandno incontinence. For vulva, patient reportsno genital lesion. For vagina, patient reportsnormal vaginal discharge.Breast symptomsFor breast, patient reportsno breast pain,no breast lump, andno nipple discharge.ContraceptionFo r current contraception, (postmenopause).Endocrine symptomsFor sexual complaints, patient reportsno sexual complaints,no pain during intercourse, andnormal libido. For menopausal symptoms, patient reportsno menopausal symptomsandnormal vaginal lubrication.Psychological symptomsFor psychological symptoms, patient reportsno depression,no anxiety, andno pmdd.Preventative measuresFor preventive measures, patient reportsencourage self breast examination,encourage regular exercise,encourage no tobacco use,encourage regular mammograms starting age 40,mammogram performed within the past year, andup to date on colonoscopy screening. ADRIANA Knight-JENELLE [address], [place], [address], [facility] 01/11/2020 13:17:39 1 text/html Annual Spent Grain Dryer Post-MenopausalReported by PatientGenitourinary symptomsFor menopausal symptoms, patient reportsno menopausal symptomsandnormal vaginal lubrication. For vaginal bleeding, patient reportshistory of menopause having occurredandno history of post menopausal bleeding. For urinary symptoms, patient reportsno hematuria,no incontinence,no nocturia, andno urinary frequency. For vulva, patient reportsno genital lesionandno vulvar atrophy. For vagina, patient reportsnormal vaginal dischargeandno vaginal atrophy.Breast symptomsFor breast, patient reportsno breast lump,no nipple discharge, andno breast pain.Psychological symptomsFor sexual complaints, patient reportsno sexual complaints. For psychological symptoms, patient reportsno depressionandno anxiety.Preventative measuresFor preventive measures, patient reportsencourage regular mammograms starting age 40,encourage self breast examination,encourage regular exercise,encourage no tobacco use,mammogram performed within the past year, andhistory of recent colonoscopy. ALAN Knight [address], [place], [address], [facility] 01/12/2021 10:03:09 OBGyn Episode Ob Episode Information Episode Created Date Number of Fetuses Patient Bloodtype Patient rh Status Prepregnancy Weight lbs Domestic Partner Domestic Partner Phone Father Name Pellet Post Inspector Status 01/11/20 1 CLOSED Fetus Data First Name Last [...] Domestic Partner Domestic Partner Phone Father Name Pellet Post Inspector Status 01/11/20 1 CLOSED Fetus Data First Name Last [...]
--- OUTSIDE RECORDS SUMMARY | 2024-11-11 10:08 | XMS_ITS | Clinical Summary ---
Author Organization [facility] [address] Address [address] [place] [address] Care Team Providers Care Strike Operations Officer Name Role Phone Chente Meredith MD Unavailable [phone] Shyanne Ramos MD Unavailable [phone] Pranay Klein MD Primary Care Provider [phone] Allergies Active Allergy Reactions Criticality Noted Date [...] for 4 days. 6 tablet 5 025 Active Problems Problem Noted Date Diagnosed Date Hyperlipidemia 12/12/2023 Chronic fatigue 12/18/2022 Enthesopathy of hip region 04/16/2022 Lesion of ulnar nerve 04/16/2022 Low back pain 04/16/2022 BMI 31.0-31.9,adult 10/12/2020 SINGH on CPAP 10/12/2020 Sensation of fullness in ear 08/21/2020 Adenomatous polyps 01/31/2020 Overview (01/31/2020): Added automatically from request for surgery [id number] Gastric polyps 01/31/2020 Overview (01/31/2020): Added automatically from request for surgery [id number] Chest pain 07/27/2019 Adenomatous polyp 04/07/2019 Overview (04/07/2019): Added automatically from request for surgery [id number] PAT (paroxysmal atrial tachycardia) 11/13/2016 Palpitations 11/13/2016 [...] daily Assessment & Plan (03/26/2022 10:52 AM CONSULTANT EDUCATION): Highly symptomatic atrial fibrillation with high arrhythmia [...] ablation. She understands and wishes to proceed. [id number] = 3. Anticoagulation is indicated. 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 Adiposity 03/06/2016 Overview (07/25/2016): Obesity (BMI 30.0-34.9) [...] Care Team Description 10/21/2024 Orders Only [facility] Scanning, Provider 10/08/2024 12:45 PM CDT Ancillary Procedure [facility] Imaging at [address] [address] Acute cough 10/08/2024 12:45 PM CDT Office Visit [facility] at [address] [address] Di Jeffers, LALY Acute cough (Primary Dx); Mild intermittent asthma with exacerbation 10/08/2024 Results Follow-Up [facility] at [address] [address] Di Jeffers, DRAFTSPERSON XR Chest Pa Lateral 2 Views 09/09/2024 2:30 PM CDT Office Visit [facility] [address] [place] [address] [address] [place] [address] Yan Foster MD SINGH on CPAP (Primary Dx) 08/12/2024 Orders Only [facility] [address] [facility] [facility] [address] [place] [address] Nile Garcia III, MD from [...] Date Comments Asthma 1980 Asthma; Comments : [facility] 06/27/2014 - Neuropathy 2012 Neuropathy; Comm ents: [facility] 06/27/2014 - Gonzalez's esophagus 1998 Barretts eso phagitis; Comments: [facility] 06/27/2014 - Last Upper GI 2014- Normal Anxiety disorder 1994 Anxiety Atrial fibrillation (HCC) Sleep apnea Colon polyp GERD (gastroesophageal reflux disease) Dysphagia Chronic diarrhea Hypertension Cancer (HCC) hx skin cancer Family History Medical History Relation Name Comments Alzheimer's disease Father Ángel Alzheime r's disease; Diabetes Father Ángel Diabetes mellit ; Heart disease Father Ángel Cardiovascular disease; Other [...] on file Legal Sex Female 11:36 PM CONSULTANT EDUCATION Gender Identity Not on file Sexual Orientation [...] AUTO DIFFERENTIAL Routine 08/12/2024 11:04 AM CDT COLONOSCOPY 12/21/2020 9:20 AM CDT SERUM HEPATITIS [...] of the chest. COMPARISON: None FINDINGS: LUNGS: Vmkmdsib-od-qfwdbx elevation of the right hemidiaphragm. Predominantly streaky right basilar opacities most likely relate to atelectasis, but pneumonia can not be completely excluded. Minimal streaky left basilar opacities are most suggestive of subsegmental atelectasis or scarring. No other focal infiltrates. HEART/MEDIASTINUM: Cardiac silhouette upper limits of normal in size. Mediastinal and hilar contours appear normal. LINES/TUBES: None. BONES: No acute osseous abnormality. IMPRESSION: 1. Glstoqgi-ta-dfxwny elevation of right hemidiaphragm. 2. Predominantly streaky right basilar opacities most likely relate to atelectasis, but pneumonia can not be completely excluded. 3. Minimal streaky left basilar opacities are most suggestive of subsegmental atelectasis or scarring. THIS IS AN ELECTRONICALLY VERIFIED FINAL REPORT 10/08/2024 3:29 PM - Electronically signed by Hakan CRUZ T: Report ID: [id number] Reading Location: [place] [address] Procedure Note Hakan Horn MD - 10/08/2024 EXAM DESCRIPTION: XR CHEST PA LATERAL 2 VIEWS REASON FOR STUDY: COUGH Pt complains of cough x 1 week. Hx breast reduction. Hx asthma and a fib.No cancer. No smoking hx TECHNIQUE: PA and lateral radiographic view(s) of the chest. COMPARISON: None FINDINGS: LUNGS: Fmyzjmry-hh-jvvwyz elevation of the right hemidiaphragm. Predominantly streaky right basilar opacities most likely relate to atelectasis, but pneumonia can not be completely excluded. Minimalstreaky left basilar opacities are most suggestive of subsegmental atelectasis or scarring. No other focal infiltrates. HEART/MEDIASTINUM: Cardiac silhouette upper limits of normal in size. Mediastinal and hilar contours appear normal. LINES/TUBES: None. BONES: No acute osseous abnormality. IMPRESSION: 1. Ggcrhegc-bz-tzsznk elevation of right hemidiaphragm. 2. Predominantly streaky right basilar opacities most likely relate to atelectasis, but pneumonia can not be completely excluded. 3. Minimal streaky left basilar opacities are most suggestive of subsegmental atelectasis or scarring. THIS IS AN ELECTRONICALLY VERIFIED FINAL REPORT 10/08/2024 3:29 PM - Electronically signed by Hakan Horn M.D. RB T: Report ID: [id number] Reading Location: [place] [address] Di Jeffers NP IMG XR PROCEDURES Final Re sult * Basic metabolic panel (08/12/2024 1:43 PM CDT) Blood us Nile Garcia III, MD LAB BLOOD ORDERABLE S Final Result * CBC with auto differential (08/12/2024 11:04 AM CDT) Blood Nile Garcia III, MD LAB BLOOD ORDERABLE S Final Result * COLONOSCOPY (12/21/2020 9:20 AM CDT) Anatomical Region Laterality Modality Other Narrative Procedure Note Patti Burris MD - 12/21/2020 9:20 AM CDT [facility] ENDOS[facility] Patient Name: Unique Marie Procedure Date: 12/21/2020 9:20 AM Date of : 1955 Admit Type: Outpatient Age: 65 Gender: Female Attending MD: Patti Burris M.D. Room: [facility] ENDOSCOPY ROOM 9 Note Status: [...] The scope was passed under direct vision.The CF [id number] endoscope was introduced through the anus and advanced to the cecum, identified by appendiceal orifice and ileocecal valve. The colonoscopy was performed without difficulty. The patient tolerated the procedure well. The qualityof the bowel preparation was evaluated using the BBPS (Oliver Bowel Preparation Scale) with scores of:Right Colon [...] 7 days, please contact my office at [phone]. Attending Participation: I personally performed the entire procedure. Electronically signed by Patti Burris MD Patti Burris M.D. 12/21/2020 10:13:33 AM . Number of Addenda: 0 Note Initiated On: 12/21/2020 9:20 AM Recognized by the [place] [employer] for promoting quality [...] with a HCV Nucleic Acid Amplification test ([id number]). Serum 10/06/2015 7:58 AM CDT us Historical Provider LAB BLOOD ORDERABLES Milady willson Result HISTORICAL RESULTS from Last 3 Months or Most Recently Relevant to Health Maintenance Insurance MEDICARE [facility] MEDICARE AARP MEDICARE AARP Advance Directives For more information, please contact: [phone] * Full Code (Latest Code Status on File) Date Activated Date Inactivated Comments 12/21/2020 8:21 AM 12/21/2020 3:20 PM Care Teams Strike Operations Officer Relationship Specialty Start Date End Date Pranay Klein MD [address] [place] [address] PCP - General Family Practice 12/18/22 Chente Meredith MD Consulting Physician Cardiology 10/12/20 Shyanne Ramos MD [address] [place] [address] Consulting Physician Otolaryngology 10/12/20
--- OUTSIDE RECORDS SUMMARY | 2024-11-11 10:08 | XMS_ITS | Encounter Summary ---
Author Organization [facility] Healthcare Address [address] [place] [address] Care Team Providers Care Rails Developer Name Role Phone Chente Meredith MD Unavailable [phone] Shyanne Ramos MD Unavailable [phone] Pranay Klein MD Primary Care Provider [phone] Encounter Details Date Type Department Care Team (Late st Contact Info) Description 10/08/2024 Results Follow-Up [facility] Con[facility]ient Care at [address] [address] Di Jeffers NP [address] [place] [address] [address] [place] [address] XR Chest Pa Lateral 2 [...] on file Legal Sex Female 11:36 PM HUMAN 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
--- OUTSIDE RECORDS SUMMARY | 2024-11-11 10:08 | XMS_ITS | Referral Summary ---
Author Organization [facility] [address] Address [address] [place] [address] Care Team Providers Care Support Specialist Name Role Phone Chente Meredith MD Unavailable Shyanne Ramos MD Unavailable [phone] Pranay Conteh MD Primary Care Provider [phone] Encounters Date Type Department Care Team Description 10/21/2024 Orders Only [facility], Provider 10/08/2024 Results Follow-Up [facility] at [address] [address] Di Jeffers NP XR Chest Pa Lateral 2 Views 10/08/2024 12:45 PM CDT Ancillary Procedure [facility] Imaging at [address] [address] Acute cough 10/08/2024 12:45 PM CDT Office Visit [facility] at [address] [address] Di Jeffers NP Acute cough (Primary Dx); Mild intermittent asthma with exacerbation 09/09/2024 2:30 PM CDT Office Visit [facility] [address] [facility] 6[address] [place] [address] Yan Foster MD SINGH on CPAP (Primary Dx) 08/12/2024 Orders Only [facility] [address] [facility] [address], [place] [address] Nile Garcia III, MD from [...] (01/31/2020): Added automatically from request for surgery [id number] Gastric polyps 01/31/2020 Overview (01/31/2020): Added automatically from request for surgery [id number] Chest pain 07/27/2019 Adenomatous polyp 04/07/2019 Overview (04/07/2019): Added automatically from request for surgery [id number] PAT (paroxysmal atrial tachycardia) 11/13/2016 Palpitations 11/13/2016 [...] daily Assessment & Plan (03/26/2022 10:52 AM APPLICATION SUPPORT MANAGER): Highly symptomatic atrial fibrillation with high arrhythmia [...] ablation. She understands and wishes to proceed. [id number] = 3. Anticoagulation is indicated. --Will arrange [...] continue to follow up with her regular manager garden. Adiposity 03/06/2016 Overview (07/25/2016): Obesity (BMI 30.0-34.9) [...] on file Legal Sex Female 11:36 PM APPLICATION SUPPORT MANAGER Gender Identity Not on file Sexual Orientation [...] of the chest. COMPARISON: None FINDINGS: LUNGS: Dxokjhfe-zw-aqnbtb elevation of the right hemidiaphragm. Predominantly streaky right basilar opacities most likely relate to atelectasis, but pneumonia can not be completely excluded. Minimal streaky left basilar opacities are most suggestive of subsegmental atelectasis or scarring. No other focal infiltrates. HEART/MEDIASTINUM: Cardiac silhouette upper limits of normal in size. Mediastinal and hilar contours appear normal. LINES/TUBES: None. BONES: No acute osseous abnormality. IMPRESSION: 1. Wowgeldb-pb-uoojrp elevation of right hemidiaphragm. 2. Predominantly streaky right basilar opacities most likely relate to atelectasis, but pneumonia can not be completely excluded. 3. Minimal streaky left basilar opacities are most suggestive of subsegmental atelectasis or scarring. THIS IS AN ELECTRONICALLY VERIFIED FINAL REPORT 10/08/2024 3:29 PM - Electronically signed by Hakan CRUZ T: Report ID: [id number] Reading Location: [place] [address] Procedure Note Hakan Horn MD - 10/08/2024 EXAM DESCRIPTION: XR CHEST PA LATERAL 2 VIEWS REASON FOR STUDY: COUGH Pt complains of cough x 1 week. Hx breast reduction. Hx asthma and a fib.No cancer. No smoking hx TECHNIQUE: PA and lateral radiographic view(s) of the chest. COMPARISON: None FINDINGS: LUNGS: Kzukcbao-wa-ifhkfa elevation of the right hemidiaphragm. Predominantly streaky right basilar opacities most likely relate to atelectasis, but pneumonia can not be completely excluded. Minimalstreaky left basilar opacities are most suggestive of subsegmental atelectasis or scarring. No other focal infiltrates. HEART/MEDIASTINUM: Cardiac silhouette upper limits of normal in size. Mediastinal and hilar contours appear normal. LINES/TUBES: None. BONES: No acute osseous abnormality. IMPRESSION: 1. Fsgcfdgg-oi-fnknci elevation of right hemidiaphragm. 2. Predominantly streaky right basilar opacities most likely relate to atelectasis, but pneumonia can not be completely excluded. 3. Minimal streaky left basilar opacities are most suggestive of subsegmental atelectasis or scarring. THIS IS AN ELECTRONICALLY VERIFIED FINAL REPORT 10/08/2024 3:29 PM - Electronically signed by Hakan Horn M.D. RB T: Report ID: [id number] Reading Location: [place] [address] Di Jeffers LOCOMOTIVE ENGINEER ELECTRIC IMG XR PROCEDURES Final Re sult * [...] MD: Patti Burris M.D. Room: [facility] ENDOSCOPY ROOM 9 Note Status: Finalized Procedure: [...] scope was passed under direct vision.The CF [id number] endoscope was introduced through the anus and advanced to the cecum, identified by appendiceal orifice and ileocecal valve. The colonoscopy was performed without difficulty. The patient tolerated the procedure well. The qualityof the bowel preparation was evaluated using the BBPS (Bristol Bowel Preparation Scale) with scores of:Right Colon [...] 7 days, please contact my office at [phone]. Attending Participation: I personally performed the entire procedure. Electronically signed by Patti Burris MD Patti Burris M.D. 12/21/2020 10:13:33 AM . Number of Addenda: 0 Note Initiated On: 12/21/2020 9:20 AM Recognized by the [place] [employer] for promoting quality in endoscopy Patti Burris MD ENDOSCOPY PROCEDURES Final Res [...] with a HCV Nucleic Acid Amplification test ([id number]). Serum 10/06/2015 7:58 AM CDT us Historical Provider LAB BLOOD ORDERABLES Milady willson Result HISTORICAL RESULTS from Last 3 Months or Most Recently Relevant to Health Maintenance Insurance MEDICARE [facility] MEDICARE [facility] MEDICARE [facility] Advance Directives For more information, please contact: [phone] * Full Code (Latest Code Status on File) Date Activated Date Inactivated Comments 12/21/2020 8:21 AM 12/21/2020 3:20 PM Care Teams Support Specialist Relationship Specialty Start Date End Date Pranay Klein MD [address] [place] [address] PCP - General Family Practice 12/18/22 Chente Meredith MD Consulting Physician Cardiology 10/12/20 Shyanne Ramos MD [address] [place] [address] Consulting Physician Otolaryngology 10/12/20
--- OUTSIDE RECORDS SUMMARY | 2024-11-11 10:08 | XMS_ITS | Continuity of Care Document ---
Author Organization [facility] Address [address] [facility] [address] [place] [address] Phone Care Team Providers Care Bus Boy Name Role Phone Nicci Posadas Unavailable Unavailable Advance Directives Directive Yes / No Effective Date File Name No Information Encounters Encounter Description Practice Location Reason(s) For Visit Diagnoses Date Provider Providers Copied on Encounter [facility], [id number] [place] [address] [address], [place], [place], [id number], [place] tel:[phone] [facility] No Information 1 Katharina Grajeda. [address] , [address], [place], [address], [place]. tel:[phone] Family History Family Member Type Diagnosis Age At Onset No Information Payers Payer name Insurance type Covered constitution party ID Authoriza tion(s) No Information Social [...]
--- NOTE | 2024-12-08 13:20 | WPDPFTINT ---
PFT Procedure Performed PFT Procedure Performed Spirometry with Pre/Post Bronchodilator Plethysmography (Lung Vol) Diffusing Cap (DLCO) Flow Vol Loop PFT Interpretation This is a pulmonary function test with pre and post-bronchodilator spirometry, plethysmography and diffusing capacity. The test was performed and results interpreted in accordance with the 2019 and 2005 ATS/ERS Task Force guidelines respectively using the Global Lung Function Initiative-2012 reference equations. Patient demonstrated good effort and cooperation. Reproducibility criteria were met. The quality of the pre bronchodilator spirometry maneuver was Grade A and post bronchodilator spirometry maneuver was Grade A. Findings: Spirometry: The contour the inspiratory and expiratory flow tracing are normal. The pre bronchodilator FVC is 1.63 L, 54% predicted. The pre bronchodilator FEV1 is 1.26 L, 54% predicted. The pre bronchodilator FEV1: FVC ratio 77%. The post bronchodilator FVC is 1.78 L, representing a 9% increase. The post bronchodilator FEV1 is 1.46 L, representing a 15% increase. The post bronchodilator FEV1: FVC ratio is 82%. Plethysmography: The total lung capacity is 3.77 L, 73% predicted. The functional residual capacity is 1.85 L, 62% predicted. The residual volume is 1.82 L, 83% predicted. Diffusing capacity: The diffusing capacity unadjusted for hemoglobin and carboxyhemoglobin is 11.0, 52% predicted. The diffusing capacity adjusted for alveolar volume is 4.27, 100% predicted. Impression: There is a moderately severe restrictive ventilatory abnormality. The spirometry is normal without evidence of an obstructive abnormality. There is significant improvement after inhaling a single dose of albuterol. The diffusing capacity unadjusted for hemoglobin and carboxyhemoglobin is moderately decreased and normalizes when adjusted for alveolar volume. There are no prior studies for comparison
== END 2024-11-11 10:04 | disposition home or self-care (01) ==
PROVIDERS: PCP Nurse Practitioner Family; Visit Provider Nurse Practitioner Family
DX: J45.909 Unspecified asthma, uncomplicated (principal)
CPT/HCPCS: 94060; 94726; 94729

== ENCOUNTER 2025-02-04 09:32 | Outpatient (CLI) | payer MEDICARE, SELFPAY ==
--- OUTSIDE RECORDS SUMMARY | 2001-01-03 03:45 | XMS_ITS | Continuity of Care Document ---
Author Organization [facility] Address [address] [facility] [address] [place] [address] Phone Care Team Providers Care Prover Name Role Phone Nicci Posadas Unavailable Unavailable Advance Directives Directive Yes / No Effective Date File Name No Information Encounters Encounter Description Practice Location Reason(s) For Visit Diagnoses Date Provider Providers Copied on Encounter [facility], [id number] [place] [address] [address], [place], [place], [id number], [place] tel:[phone] [facility] No Information 1 Katharina Grajeda. [address] , [address], [place], [address], [place]. tel:[phone] Family History Family Member Type Diagnosis Age At Onset No Information Payers Payer name Insurance type Covered democrat ID Authoriza tion(s) No Information Social History Type Description Quantity Date Captured Comments Sex Female Smoking Status No Information Chief Complaint And Reason For Visit No Information Reason For Referral Reason For Referral No Information History Of Present Illness Encounter Date Complaint History Of Prese nt Illness No Information Functional Status Date Functional Assessmen t No Information Instructions Date Instruction Additional Infor mation No Information Assessments Type Assessment Date No Information Patient Care Teams Name Effective Dates (start - stop) Status Members No Information
--- NOTE | ~2025-02-04 | US_ITS ---
ULTRASOUND ABDOMEN LIMITED (RIGHT UPPER QUADRANT) Clinical History: J98.6 - Disorders of diaphragm Comparison: None Technique: Right upper quadrant sonography Findings: Liver: Micronodular contour. Echogenic. Enlarged. No intrahepatic biliary ductal dilatation. Normal hepatopedal flow main portal vein. Common Duct: Normal caliber. 4 mm. Gallbladder: Stone. No wall thickening. No pericholecystic fluid. Negative sonographic Stauffer's sign per technologist report. Pancreas: Visualized portions unremarkable. IMPRESSION: 1. Hepatomegaly with steatosis and/or hepatocellular disease. Probable cirrhosis. No discrete liver mass. 2. Gallstone. Reviewed, dictated and finalized at location R. IMPRESSION: 1. Hepatomegaly with steatosis and/or hepatocellular disease. Probable cirrhos is. No discrete liver mass. 2. Gallstone.
--- OUTSIDE RECORDS SUMMARY | 2025-02-04 10:03 | XMS_ITS | Clinical Summary ---
Author Organization [facility] [address] Address [address] [place] [address] Care Team Providers Care Professor Of Engineering Name Role Phone Chente Meredith MD Unavailable [phone] Shyanne Ramos MD Unavailable [phone] Pranay Klein MD Primary Care Provider [phone] Allergies Active Allergy Reactions Criticality Noted Date Comments Amoxicillin Other (See comments) Medium 10/03/2008 DISTAL ESOPHAGEAL BURNING Lidocaine Palpitations Low 05/11/2023 Pt has allergy/intolerance [...] every 12 (twelve) hours 11/29/19 22 Active ergocalciferol (VITAMIN D) 50,000 unit [...] day 180 tablet 3 04/08/20 24 Active rivaroxaban (Xarelto) 20 mg tablet Take 1 tablet (20 mg total) by mouth daily 90 tablet 2 07/20/19 25 Active flecainide (TAMBOCOR) 100 mg tabletIndication s:Paroxysmal atrial fibrillation (HCC) TAKE 1 TABLET TWICE A DAY 180 tablet 3 07/30/19 25 Active cholecalciferol (VITAMIN D-3) 50,000 unit capsuleIndicatio ns:Dyspnea on exertion Take 1 capsule (50,000 Units total) by mouth once a week 10/15/19 25 Active cyanocobalamin (Vitamin B-12) 100 mcg tabletIndication s:Dyspnea on exertion Take 1 tablet (100 mcg total) by mouth daily Active ferrous sulfate 325 mg (65 mg of elemental iron) tabletIndication s:Dyspnea on exertion Take 1 tablet (325 mg total) by mouth daily 10/02/19 25 Active neomycin-polymyx in B-dexAMETHasone (MAXITROL) 3.5 mg/g-10,000 unit/g-0.1 % ointmentIndicati ons:Dyspnea on exertion 08/24/19 25 Active albuterol HFA (PROVENTIL HFA,VENTOLIN HFA,PROAIR HFA) 90 mcg/actuation inhalerIndicatio ns:Dyspnea on exertion Inhale 2 puffs every 6 (six) hours as needed for wheezing 1 each 3 12/07/19 25 Active beclomethasone dipropionate (Qvar RediHaler) 80 mcg/actuation inhaler Inhale 2 puffs 2 (two) times a day Rinse mouth with water after use. Do not swallow. 3 each 3 02/02/20 25 026 Active levocetirizine (XYZAL) 5 mg tablet Take 1 tablet (5 mg total) by mouth daily 30 tablet 3 02/02/20 25 025 Active fluticasone-umec lidin-vilanter (Trelegy Ellipta) 200-62.5-25 mcg inhalerIndicatio ns:Dyspnea on exertion Inhale 1 puff daily RINSE MOUTH AFTER USE. 30 each 11 12/07/19 25 025 Discontinued Active Problems Problem Noted Date Diagnosed Date Hyperlipidemia 12/12/2023 Chronic fatigue 12/18/2022 Enthesopathy of hip region 04/16/2022 Lesion of ulnar nerve 04/16/2022 Low back pain 04/16/2022 BMI 31.0-31.9,adult 10/12/2020 SINGH on CPAP 10/12/2020 Sensation of fullness in ear 08/21/2020 Adenomatous polyps 01/31/2020 Overview (01/31/2020): Added automatically from request for surgery [id number] Gastric polyps 01/31/2020 Overview (01/31/2020): Added automatically from request for surgery [id number] Chest pain 07/27/2019 Adenomatous polyp 04/07/2019 Overview (04/07/2019): Added automatically from request for surgery [id number] PAT (paroxysmal atrial tachycardia) 11/13/2016 Palpitations 11/13/2016 [...] daily Assessment & Plan (03/26/2022 10:52 AM BUTT SAWYER): Highly symptomatic atrial fibrillation with high arrhythmia [...] ablation. She understands and wishes to proceed. [id number] = 3. Anticoagulation is indicated. --Will arrange [...] continue to follow up with her regular electrician outside. Adiposity 03/06/2016 Overview (07/25/2016): Obesity (BMI 30.0-34.9) [...] Encounters Date Type Department Care Team Description 02/01/2025 11:00 AM CDT Office Visit [facility] Pulmonology [address] [place] [phone] Chong Garcia MD Elevated diaphragm (Primary Dx); Dyspnea on exertion; SINGH (obstructive sleep apnea); Asthma, unspecified asthma severity, unspecified whether complicated, unspecified whether persistent; Pulmonary hypertension (HCC) 01/10/2025 10:30 AM CDT - 01/10/2025 11:59 PM CDT Hospital Encounter [facility] [address] [place] [address] Discharge Disposition: Discharge to home or self care 01/10/2025 9:38 AM CDT - 01/10/2025 11:59 PM CDT Hospital Encounter [facility] [address] [place] [address] Dyspnea on exertion Discharge Disposition: Discharge to home or self care 01/10/2025 9:11 AM CDT - 01/10/2025 11:59 PM CDT Hospital Encounter [facility] [address] [place] [address] Elevated diaphragm Discharge Disposition: Discharge to home or self care 01/10/2025 Results Follow-Up [facility] Pulmonology [address] [place] [address] [address] [place] [address] Chong Garcia MD Fluoroscopy sniff test 12/31/2024 Results Follow-Up [facility] [address] [place] [address] [place] [phone] Vera Zaldivar NP Transthoracic Echo (TTE) Complete W Doppler/CF 12/28/2024 1:00 PM CDT Ancillary Procedure [facility] [address] [place] [address] [place] [phone] Shortness of breath 12/09/2024 9:30 AM CDT Office Visit [facility] [address] [place] [address] [place] [phone] Vera Zaldivar NP Paroxysmal atrial fibrillation (HCC) (Primary Dx); Shortness of breath; Chronic anticoagulation; Essential hypertension; Hyperlipidemia, unspecified hyperlipidemia type 12/06/2024 10:00 AM CDT Office Visit [facility] Pulmonology [facility] [address] [place] [address] Chong Garcia MD Elevated diaphragm (Primary Dx); Dyspnea on exertion; SINGH (obstructive sleep apnea); Asthma, unspecified asthma severity, unspecified whether complicated, unspecified whether persistent 11/06/2024 10:00 AM CDT - 11/06/2024 11:59 PM CDT Hospital Encounter [facility] [address] [facility] [place] [address] Discharge Disposition: Discharge to home or self care from Last 3 Months Immunizations Immunization Administration Dates Next Due Influenza, Quadrivalent, Split, Intramuscular Influenza, Trivalent, Recomb inant, Egg Free, Preservative Free, Antibiotic Free, IM (FLUBLOK) 12/20/2013 Tdap 04/21/2010 Surgical History Surgery Date Site/Laterality Comments REDUCTION MAMMOPLASTY Breast Reduction KNEE ARTHROSCOPY Arthroscopy knee BREAST SURGERY Breast reduction COLONOSCOPY UPPER GASTROINTESTINAL ENDOSCOPY KNEE ARTHROSCOPY W/ LATERAL RELEASE 1981 Medical History Medical History Date Comments Asthma 1979 Asthma; Comments : [facility] - Neuropathy 2012 Neuropathy; Comm ents: [facility]/27[place] - Gonzalez's esophagus 1998 Barretts eso phagitis; Comments: [facility] [place]/27[place]2014 - Last Upper GI 2014- Normal Anxiety disorder 1994 Anxiety Atrial fibrillation (HCC) Sleep apnea Colon polyp GERD (gastroesophageal reflux disease) Dysphagia Chronic diarrhea Hypertension Cancer (HCC) hx skin cancer Family History Medical History Relation Name Comments Alzheimer's disease Father Ángel Alzheime r's disease; Bleeding Disorder Father Ángel Diabetes Father Ángel Diabetes mellit us; Heart attack Father Ángel Heart disease Father Ángel Cardiovascular disease; Other Father Ángel Blood disorder; Other Mother Heart disease Other Uncle Stomach cancer Other Uncle Thyroid cancer Sister Relation Name Status Comments Father Ángel Mother Other Uncle Fathers side Sister Social History Tobacco Use [...] on file Legal Sex Female 11:36 PM BUTT SAWYER Gender Identity Not on file Sexual Orientation Not on file Obstetrics History Last Filed Vital Signs Vital Sign Reading Time Taken Comments Blood Pressure 146/62 02/01/2025 10:50 AM CDT Pulse 57 02/01/2025 10:50 AM CDT Temperature 36.5 C (97.7 F) 02/01/2025 10:50 AM CDT Respiratory Rate 18 02/01/2025 10:50 AM CDT Oxygen Saturation 96% 02/01/2025 10:50 AM CDT Inhaled Oxygen Concentration - - Weight 87.1 kg (192 lb) 02/01/2025 10:50 AM CDT Height 167.6 cm (5' 5.98) 02/01/2025 10:50 AM C DT Body Mass Index 31 02/01/2025 10:50 AM CDT Plan of Treatment Health Maintenance Due Date Last Done Comments Depression Screening 1955 Hepatitis B Screening 1974 Pneumococcal vaccine 65+ (2 of 2 - PCV) 04/21/1997 04/21/1996 Zoster Vaccine (1 of 2) 2006 Osteoporosis Screening-Bone Density Scan 01/31/2012 01/30/2010 Breast Cancer Screening-Mammogram 11/20/2016 11/21/2015, 11/14/2014, 11/08/2013, Additional history exists Well Visit 65+ 2021 Fall Risk Assessment 12/21/2021 12/21/2020 Covid-19 Vaccine (4 - 2024-2 6 season) 2024 02/17/2021, 06/02/2020, 05/12/2020 Influenza Vaccine (#1) 2024 5, 12/20/2013, 05/04/2012 Colon Cancer Screening-Colonoscopy 12/21/2030 12/21/2020, 11/16/2015 DTaP/Tdap/Td Vaccine (4 - Td or Tdap) 07/20/2032 07/20/2022, 04/21/2010, 12/21/2009 Hepatitis C Screening Completed 10/06/2015 Colon Cancer Screening-CT Colonography Discontinued 12/21/2020, 11/16/2015 Colon Cancer Screening-DNA Stool Discontinued 12/22/19, 11/16/2015 Colon Cancer Screening-FIT Discontinued 12/21/2020, Colon Cancer Screening-Sigmoidoscopy Discontinued 12/21/2020, 11/16/2015 Procedures Procedure Name Priority Date/Time Associated Diagnosis Comments PULMONARY FUNCTION TEST (PFT) Routine 01/10/2025 10:30 AM CDT Dyspnea on exertion PULMONARY FUNCTION TEST (PFT) Routine 01/10/2025 9:49 AM CDT Dyspnea on exertion SNIFF TEST Schedule Routine, Read Routine (OP Routine) 01/10/2025 9:35 AM CDT Elevated diaphragm TRANSTHORACIC ECHO (TTE) COMPLETE W DOPPLER/CF WO CONTRAST Routine 12/28/2024 2:01 PM CDT Shortness of breath POCT LIPID PANEL Routine 12/09/2024 9:25 AM CDT Hyperlipidemia, unspecified hyperlipidemia type CT BODY OUTSIDE REFERENCE Routine 11/06/2024 10:00 AM CDT COLONOSCOPY 12/21/2020 9:20 AM CDT SERUM HEPATITIS PANEL Routine 10/06/2015 7:58 AM CDT from Last 3 Months or Most Recently Relevant to Health Maintenance Results * Pulmonary Function Test -[facility]; Bronchial Provacation (01/10/2025 10:30 AM CDT) Anatomical Region Laterality Modality PFT Impressions 01/11/2025 3:10 PM CDT 1. Impaired spirometry with preserved ratio. There was no evidence of obstruction 2. Can not exclude a restrictive ventilatory limitation without measurement of lung volumes 3. The patient did not meet criteria for methacholine challenge testing Electronically signed by Konstantin Lezama MD Pulmonary & Critical Care Narrative 01/11/2025 3:10 PM CDT PULMONARY FUNCTION TESTS Unique Marie 69 y.o. 01/11/2025 INTERPRETATION Please see technologist's comments mentioned in attached results report. SPIROMETRY: Pre bronchodilator FEV1 is 63 % predicted, FVC is 62 % predicted, FEV1/FVC is 0.78 Bronchodilator response: Not performed Inspection of the patient's flow-volume loops shows: Normal configuration of the inspiratory and expiratory limbs. us Chong Garcia MD PFT ORDERABLES Final Result * Fluoroscopy sniff test (01/10/2025 9:35 AM CDT) Anatomical Region Laterality Modality Head and Neck N/A Computed Radiogr aphy, Computed Radiography 01/10/2025 10:1 5 AM CDT Narrative 01/10/2025 10:26 AM CDT EXAM DESCRIPTION: FL SNIFF TEST REASON FOR STUDY: Chronic right hemidiaphragm elevation extending at least as far back as CT imaging July 2014. No provided history of trauma or inciting and/or aggravating events. COMPARISON: Relevant portions of CT abdomen pelvis without contrast 08/18/2014; two-view chest radiograph 10/24/2024 (images without report); two-view chest radiograph 10/08/2024; CT chest without contrast 11/06/2024. RADIATION DOSE: Dose: 2902.12 uGym2 Dose Area Product (DAP) TECHNIQUE: Fluoroscopy of the chest and diaphragm was performed for evaluation of diaphragmatic movement during respiration including slow deep inspiration and expiration as well as during rapid nasal sniffing. FINDINGS: Redemonstration of right hemidiaphragm elevation with adjoining mild compressive right basilar atelectasis. Left lung clear. Conjugate symmetric movement of the hemidiaphragms through slow deep respiratory cycles. However, appearance of development of a component of disconjugate excursion/paradoxical movement during rapid sniffing suggestive of a component of right phrenic nerve dysfunction. IMPRESSION: 1. Redemonstration of right hemidiaphragm elevation with adjoining mild compressive right basilar atelectasis; left lung clear. 2. While there is conjugate symmetric movement of the hemidiaphragms through slow deep respiratory cycles, there is the appearance of development of a component of disconjugate excursion/paradoxical movements during rapid sniffing suggestive of a component of right phrenic nerve dysfunction. THIS IS AN ELECTRONICALLY VERIFIED FINAL REPORT 01/10/2025 10:26 AM - Electronically signed by Jas RICHMOND T: Report ID: [id number] Reading Location: [id number] Procedure Note Jas Razo MD - 01/10/2025 EXAM DESCRIPTION: FL SNIFF TEST REASON FOR STUDY: Chronic right hemidiaphragm elevation extending atleast as far back as CT imaging July 2014. No provided history of trauma or inciting and/or aggravating events. COMPARISON: Relevant portions of CT abdomen pelvis without contrast 08/18/2014; two-view chest radiograph 10/24/2024 (images without report); two-view chest radiograph 10/08/2024; CT chest without vzdsdorp97/19/2025. RADIATION DOSE: Dose: 2902.12 uGym2 Dose Area Product (DAP) TECHNIQUE: Fluoroscopy of the chest and diaphragm was performed forevaluation of diaphragmatic movement during respiration including slow deepinspiration and expiration as well as during rapid nasal sniffing. FINDINGS: Redemonstration of right hemidiaphragm elevation with adjoiningmild compressive right basilar atelectasis. Left lung clear. Conjugate symmetric movement of the hemidiaphragms through slow deep respiratory cycles. However, appearance of development of a component of disconjugate excursion/paradoxical movement during rapid sniffingsuggestive of a component of right phrenic nerve dysfunction. IMPRESSION: 1. Redemonstration of right hemidiaphragm elevation with adjoining mild compressive right basilar atelectasis; left lung clear. 2. While there is conjugate symmetric movement of the hemidiaphragmsthrough slow deep respiratory cycles, there is the appearance of development of a component of disconjugate excursion/paradoxical movements during rapid sniffing suggestive of a component of right phrenic nerve dysfunction. THIS IS AN ELECTRONICALLY VERIFIED FINAL REPORT 01/10/2025 10:26 AM - Electronically signed by Jas RICHMOND T: Report ID: [id number] Reading Location: [id number] Chong Garcia MD IMG FLUOROSCOPY PROCEDURES F inal Result * TRANSTHORACIC ECHO (TTE) COMPLETE W DOPPLER/CF WO CONTRAST (12/28/2024 2:01 PM CDT) Estimated EF 65-70 % CONS SCIMAGE EF Mod BP 65 % CONS SCIMAGE Anatomical Region Laterality Modality Ultrasound 12/28/2024 1:14 PM CDT Narrative 12/28/2024 4:30 PM CDT [facility] Cardiology [address] [facility] [address], [place] [address] [address] [facility] [address], [place] [address] P:[phone] P:[phone] Echocardiographic Report Patient Name: UNIQUE MARIE : 1955 Study Date: 12/28/2024 1:14:48 PM Sex: F Supervisor Felting: Jennifer Hernández)(CT), [facility] Location: [place] Ref Provider: VERA ZALDIVAR Height(Cm): 168 BSA: 2.03 Weight(Kg): 88 Heart Rate: 66 BP: 120 / 70 Quality: Good Order Provider: VERA ZALDIVAR PROCEDURES: Echocardiographic Report: Transthoracic echocardiogram with complete 2D, M-Mode, and color Doppler examination. With Strain Analysis. INDICATIONS: R06.02 Shortness of breath. MEASUREMENTS: 2D/MM Value Range Doppler Value Range EF Mod BP 65 % [ 54 - 74 ] DANY Vmax 2.49 cm2 [ 2.00 - 4.00 ] Estimated EF 65-70 % AV Mean PG 4 mmHg LV GLS -19.90 % AV Peak Kyree 1.35 m/s [ 1.00 - 1.70 ] LVIDd 2D 5.36 cm [ 3.80 - 5.20 ] AV Peak PG 7 mmHg LVIDs 2D 3.34 cm [ 2.20 - 3.50 ] AV VTI 33.10 cm LVPWd 2D 1.01 cm [ 0.60 - 0.90 ] LVOT Diam 1.98 cm [ 1.70 - 2.10 ] IVSd 2D 1.07 cm [ 0.60 - 0.90 ] LVOT Peak Kyree 1.09 m/s [ 0.70 - 1.10 ] AoR Diam 2D 2.98 cm [ 2.70 - 3.70 ] LVOT VTI 25.70 cm LA Volume 56.50 ml [ 22.00 - 52.00 ] MV E Peak Kyree 1.02 m/s [ 0.60 - 1.30 ] LA Volume Index 28 cc/m2 [ 16 - 28 ] MV A Peak Kyree 0.73 m/s [ 1.00 - 1.20 ] RA Volume 34.88 ml MV Decel Time 158 msec [ 104 - 258 ] PV Peak Kyree 1.20 m/s [ 0.40 - 0.80 ] TR Peak Kyree 2.64 m/s [ 1.00 - 2.80 ] TR Peak PG 28 mmHg RV S` 10.12 mmHg Lateral E` 0.07 m/s [ 0.10 - 0.15 ] Septal E` 0.08 m/s [ 0.08 - 0.15 ] E` 0.07 m/s E/E` 14 Tapse 1.89 cm [ 1.71 - 5.00 ] 2D/MM Value Range Doppler Value Range - FINDINGS: Interpretation Site: Exam was interpreted at [facility]. Left Ventricle: Normal left ventricular systolic function. No focal wall motion abnormalities. Normal left ventricular size. Mild concentric left ventricular hypertrophy. There is pseudonormal diastolic dysfunction Grade II. Ejection fraction is measured at 65 %. Ejection Fraction is visually estimated to be 65-70 %. Global Longitudinal Strain is -20 %. GLS is normal. Right Ventricle: Normal right ventricular size. Normal right ventricular systolic function. Left Atrium: There is mild enlargement of left atrium. Right Atrium: The right atrium is normal in size. Atrial Septum: Normal atrial septum. Mitral Valve: Mild mitral annular calcification. Mild to moderate mitral valve regurgitation. There is no hemodynamically significant mitral stenosis by Doppler. Aortic Valve: No evidence of hemodynamically significant aortic stenosis by Doppler. Aortic cusps appear mildly sclerotic. Trileaflet aortic valve. Trace aortic valve regurgitation. Tricuspid Valve: Normal appearance of the tricuspid valve. Mild pulmonary hypertension based on right ventricular systolic pressure. Estimated peak RVSP is 40-45 mmHg. Mild tricuspid regurgitation. Pulmonic Valve: Normal appearance of the pulmonic valve. No pulmonic stenosis. Mild pulmonic regurgitation. Pericardium: Echogenic material seen within the pericardial space which may be an extensive epicardial fat pad. However, advanced imaging is recommended for clarification especially given the patient's history of shortness of breath. Aorta: Normal aortic root. IVC: Dilated inferior vena cava with poor inspiratory collapse consistent with elevated right atrial pressures. CONCLUSIONS: Normal left ventricular systolic function. No focal wall motion abnormalities. Normal left ventricular size. Mild concentric left ventricular hypertrophy. There is pseudonormal diastolic dysfunction Grade II. Ejection fraction is measured at 65 %. Ejection Fraction is visually estimated to be 65-70 %. Global Longitudinal Strain is -20 %. GLS is normal. There is mild enlargement of left atrium. Mild mitral annular calcification. Mild to moderate mitral valve regurgitation. Mild pulmonary hypertension based on right ventricular systolic pressure. Estimated peak RVSP is 40-45 mmHg. Mild tricuspid regurgitation. Mild pulmonic regurgitation. Echogenic material seen within the pericardial space which may be an extensive epicardial fat pad. However, advanced imaging is recommended for clarification especially given the patient's history of shortness of breath. Dilated inferior vena cava with poor inspiratory collapse consistent with elevated right atrial pressures. Normal sinus rhythm. Electronically Signed By: Pablito Yoder MD 12/28/2024 4:30:12 PM CDT Procedure Note Pablito Yoder MD - 12/28/2024 [facility] Medical Group Cardiology [address] [facility] [address] [address] [address] [facility] [address], [address], [place] [address] P:[phone] P:[phone] Echocardiographic Report Patient Name: UNIQUE MARIE : 1955 Study Date: 12/28/2024 1:14:48 PM Sex: F Supervisor Felting: Jennifer Hernández)(CT), [facility] Location: [facility] Provider: VERA ZALDIVAR Height(Cm): 168 BSA: 2.03 Weight(Kg): 88 Heart Rate: 66 BP: 120 / 70 Quality: Good Order Provider: VERA ZALDIVAR PROCEDURES: Echocardiographic Report: Transthoracic echocardiogram with complete 2D, M-Mode, and color Dopplerexamination. With Strain Analysis. INDICATIONS: R06.02 Shortness of breath. MEASUREMENTS: 2D/MM Value Range Doppler ValueRange EF Mod BP 65 % [ 54 - 74 ] DANY Vmax 2.49cm2 [ 2.00 - 4.00 ] Estimated EF 65-70 % AV Mean PG 4mmHg LV GLS -19.90 % AV Peak Kyree 1.35m/s [ 1.00 - 1.70 ] LVIDd 2D 5.36 cm [ 3.80 - 5.20 ] AV Peak PG 7mmHg LVIDs 2D 3.34 cm [ 2.20 - 3.50 ] AV VTI 33.10cm LVPWd 2D 1.01 cm [ 0.60 - 0.90 ] LVOT Diam 1.98cm [ 1.70 - 2.10 ] IVSd 2D 1.07 cm [ 0.60 - 0.90 ] LVOT Peak Kyree 1.09m/s [ 0.70 - 1.10 ] AoR Diam 2D 2.98 cm [ 2.70 - 3.70 ] LVOT VTI 25.70cm LA Volume 56.50 ml [ 22.00 - 52.00 ] MV E Peak Kyree 1.02m/s [ 0.60 - 1.30 ] LA Volume Index 28 cc/m2 [ 16 - 28 ] MV A Peak Kyree 0.73m/s [ 1.00 - 1.20 ] RA Volume 34.88 ml MV Decel Time 158msec [ 104 - 258 ] PV Peak Kyree 1.20 m/s [ 0.40 - 0.80 ] TR Peak Kyree 2.64 m/s [ 1.00 - 2.80 ] TR Peak PG 28 mmHg RV S` 10.12 mmHg Lateral E` 0.07 m/s [ 0.10 - 0.15 ] Septal E` 0.08 m/s [ 0.08 - 0.15 ] E` 0.07 m/s E/E` 14 Tapse 1.89 cm [ 1.71 - 5.00 ] 2D/MM Value Range Doppler ValueRange - FINDINGS: Interpretation Site: Exam was interpreted at [facility]. Left Ventricle: Normal left ventricular systolic function. No focal wall motionabnormalities. Normal left ventricular size. Mild concentric left ventricular hypertrophy. Thereis pseudonormal diastolic dysfunction Grade II. Ejection fraction is measuredat 65 %. Ejection Fraction is visually estimated to be 65-70 %. Global LongitudinalStrain is -20 %. GLS is normal. Right Ventricle: Normal right ventricular size. Normal right ventricular systolicfunction. Left Atrium: There is mild enlargement of left atrium. Right Atrium: The right atrium is normal in size. Atrial Septum: Normal atrial septum. Mitral Valve: Mild mitral annular calcification. Mild to moderate mitral valveregurgitation. There is no hemodynamically significant mitral stenosis by Doppler. Aortic Valve: No evidence of hemodynamically significant aortic stenosis by Doppler.Aortic cusps appear mildly sclerotic. Trileaflet aortic valve. Trace aortic valveregurgitation. Tricuspid Valve: Normal appearance of the tricuspid valve. Mild pulmonary hypertensionbased on right ventricular systolic pressure. Estimated peak RVSP is 40-45 mmHg. Mildtricuspid regurgitation. Pulmonic Valve: Normal appearance of the pulmonic valve. No pulmonic stenosis. Mildpulmonic regurgitation. Pericardium: Echogenic material seen within the pericardial space which may be anextensive epicardial fat pad. However, advanced imaging is recommended for clarificationespecially given the patient's history of shortness of breath. Aorta: Normal aortic root. IVC: Dilated inferior vena cava with poor inspiratory collapse consistent withelevated right atrial pressures. CONCLUSIONS: Normal left ventricular systolic function. No focal wall motionabnormalities. Normal left ventricular size. Mild concentric left ventricular hypertrophy. Thereis pseudonormal diastolic dysfunction Grade II. Ejection fraction is measuredat 65 %. Ejection Fraction is visually estimated to be 65-70 %. Global LongitudinalStrain is -20 %. GLS is normal. There is mild enlargement of left atrium. Mild mitral annular calcification. Mild to moderate mitral valveregurgitation. Mild pulmonary hypertension based on right ventricular systolic pressure.Estimated peak RVSP is 40-45 mmHg. Mild tricuspid regurgitation. Mild pulmonic regurgitation. Echogenic material seen within the pericardial space which may be anextensive epicardial fat pad. However, advanced imaging is recommended for clarificationespecially given the patient's history of shortness of breath. Dilated inferior vena cava with poor inspiratory collapse consistent withelevated right atrial pressures. Normal sinus rhythm. Electronically Signed By: Pablito Yoder MD 12/28/2024 4:30:12 PM CDT Result [facility] Vera Zaldivar NP CV ECHO PROCEDURES Final Result * (ABNORMAL) POCT lipid panel (12/09/2024 9:25 AM CDT) Cholesterol, POC 137 <200 MG/DL HDL, POC 38(A) >=40 mg/dL Triglycerides, POC 205(A) <=149 mg/dL LDL Cholesterol POC 58 <=129 mg/dL Chol/HDL Ratio, POC 1.5 NONE Non-HDL Cholesterol, POC 99 NONE mg/dL Cholesterol Total, POC 137 30 - 199 mg/dL Capillary blood 12/09/2024 9 :25 AM CDT Vera Zaldivar NP POINT OF CARE TEST ORDERA BLES Final Result * CT Body Outside Reference (11/06/2024 10:00 AM CDT) Narrative [facility]_M[facility] - 12/06/2024 12:32 PM CDT This order has been auto-finalized and does not contain a result. Provider Transcribed Order IMG CT PROCEDURES Fin al Result RAD_CLARIO_MHB_MHE * COLONOSCOPY (12/21/2020 9:20 AM CDT) Anatomical Region Laterality Modality Other Narrative Procedure Note Patti Burris MD - 12/21/2020 9:20 AM CDT GI ENDOSCOPY [facility] Patient Name: Unique Marie Procedure Date: 12/21/2020 9:20 AM Date of : 1955 Admit Type: Outpatient Age: 65 Gender: Female Attending MD: Patti Burris M.D. Room: [facility] ENDOSCOPY ROOM 9 Note Status: Finalized [...] scope was passed under direct vision.The CF [id number] endoscope was introduced through the anus and advanced to the cecum, identified by appendiceal orifice and ileocecal valve. The colonoscopy was performed without difficulty. The patient tolerated the procedure well. The qualityof the bowel preparation was evaluated using the BBPS ([place] Bowel Preparation Scale) with scores of:Right Colon [...] 7 days, please contact my office at [phone]. Attending Participation: I personally performed the entire procedure. Electronically signed by Patti Burris MD Patti Burris M.D. 12/21/2020 10:13:33 AM . Number of Addenda: 0 Note Initiated On: 12/21/2020 9:20 AM Recognized by the [employer] for promoting quality [...] with a HCV Nucleic Acid Amplification test ([id number]). Serum 10/06/2015 7:58 AM CDT Historical Provider LAB BLOOD ORDERABLES Milady willson Result HISTORICAL RESULTS from Last 3 Months or Most Recently Relevant to Health Maintenance Insurance MEDICARE [facility] MEDICARE [facility] MEDICARE [facility] Advance Directives For more information, please contact: [phone] * Full Code (Latest Code Status on File) Date Activated Date Inactivated Comments 12/21/2020 8:21 AM 12/21/2020 3:20 PM Care Teams Professor Of Engineering Relationship Specialty Start Date End Date Pranay Klein MD [address] [place] [address] PCP - General Family Practice 12/18/22 Chente Meredith MD Consulting Physician Cardiology 10/12/20 Shyanne Ramos MD [address] [place] [address] Consulting Physician Otolaryngology 10/12/20
--- OUTSIDE RECORDS SUMMARY | 2025-02-04 10:03 | XMS_ITS | Clinical Summary ---
Author Organization [facility] Address [address] [place] [address] Care Team Providers Care Fruit Harvest Machine Operator Name Role Phone Koffi Sharma MD Unavailable [phone] Patti Burris MD Unavailable Maranda Trinidad APRN-AIR PLANT ENGINEER Primary Care Provider + Source Comments [facility],non-owned Affiliates and Associated Physician Practices is amultiple site organization consisting of ambulatory clinics and hospital sitesin [place], [place], [place] and [place]. This disclosure is being madepursuant to the Care Everywhere program and may not contain all information available regarding this patient. Last updated 18.[facility] Allergies Active Allergy Reactions Criticality Noted Date Comments Amoxicillin 10/03/2008 DISTAL ESOPHAGEAL BURNING Paroxetine 03/24/2008 LOW BP Zoloft 03/24/2008 DEPRESSION Medications * Be aware that medications may not be up to date on this document. Alwaysverify current medications with the patient. atenolol (TENORMIN) 25 MG tabletIndication s:Panic disorder Take 0.5 Tabs by mouth daily. 15 Tab 11 1 Active fluticasone propionate (FLONASE) 50 MCG/ACT nasal sprayIndications :Asthma [place] 2 Sprays into each nostril daily. 16 g 11 1 Active beclomethasone dipropionate (QVAR) 80 MCG/ACT inhalerIndicatio ns:Asthma Inhale 2 Puffs by mouth 2 times daily. 1 Inhaler 1 Active busPIRone (BUSPAR) 5 MG tablet TAKE ONE TABLET BY MOUTH TWICE DAILY 60 Tab 5 2 Active Additional Information Patient taking differently: take 1.5 tablets by mouth twice daily, Reported on 11/30/2024 albuterol HFA (Proventil; Ventolin; Proair) 108 (90 Base) MCG/ACT inhaler 5 Active ALPRAZolam (Xanax) 0.25 MG tablet 1 (one) tablet anxiety 5 Active Cholecalciferol (vitamin D3) 1.25 MG (14521 UT) capsule Take 1 (one) capsule by mouth every 7 days (once a week) 5 Active FeroSul 325 (65 Fe) MG tablet Take 1 (one) tablet by mouth once daily 5 Active flecainide (Tambocor) 100 MG tablet Take 1 (one) tablet by mouth 2 times daily 5 Active hydroCHLOROthiaz geovanni (Hydrodiuril) 25 MG tablet Take 1 (one) tablet by mouth once daily 4 Active metoprolol tartrate IR (Lopressor) 100 MG tablet Take 1 (one) tablet by mouth 2 times daily 4 Active metoprolol tartrate IR (Lopressor) 25 MG tablet Take 1 (one) tablet by mouth 2 times daily 5 Active pantoprazole EC (Protonix) 40 MG tablet Take 1 (one) tablet by mouth once daily 5 Active rivaroxaban (Xarelto) 20 MG tablet Take 1 (one) tablet by mouth once daily 5 Active cyanocobalamin (Vitamin B-12) 100 MCG tablet Take 1 (one) tablet by mouth once daily Active Active Problems Problem Noted Date Diagnosed Date History of colon polyps 11/21/2015 Overview (11/21/2015): Tubular adenoma only 11/16/2015, Dr. Patti Burris, [facility] Palpitations 02/07/2011 Barretts esophagus 12/21/2009 Overview [...] 06/2000 NEGATIVE, 08/2004 NEGATIVE, 09/2006 NEGATIVE, 09/24/2007 Encounters Date Type Department Care Team Description 11/30/2024 1:20 PM CDT Office Visit [facility] - Pulmonology [address] [place] [address], [address] [place] [address] Joshua Mccabe MD Restrictive lung disease (Primary Dx); Hemidiaphragm paralysis; SINGH (obstructive sleep apnea); Morbid obesity (HCC); Chronic heart failure with preserved ejection fraction (HCC); Permanent atrial fibrillation (HCC) from Last 3 Months Immunizations Immunization Administration Dates Next Due PNEUMOCOCCAL [...] on file Legal 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 Gender Identity Not on file Sexual Orientation Not on file Occupation Industry Job Start Date Job End Date Not on file Not on file Not on file Not on file Last Filed Vital Signs Vital Sign Reading Time Taken Comments Blood Pressure 124/64 11/30/2024 1:03 PM CDT Pulse 58 11/30/2024 1:03 PM CDT Temperature - - Respiratory Rate 28 02/07/2011 2:47 PM CDT Oxygen Saturation 95% 11/30/2024 1:03 PM CDT Inhaled Oxygen Concentration - - Weight 87.8 kg (193 lb 8 oz) 11/30/2024 1:03 PM CDT Height 167.6 cm (5' 6) 11/30/2024 1:03 PM CDT Body Mass Index 31.23 11/30/2024 1:03 PM CDT Plan of Treatment Health Maintenance Due Date Last Done Comments COLOGUARD (AGES 45-75) - COLON CA SCREENING 1955 CT COLONOGRAPHY - COLON CA SCREENING 1955 FIT - COLON CA SCREENING 1955 FLEX SIG - COLON CA SCREENING 1955 MEDICARE AWV 12 MONTHS 1955 HEPATITIS C SCREENING 08/02/1974 PNEUMOCOCCAL VACCINE 50+ (2 of 2 - PCV) 04/21/1997 04/21/1996 ZOSTER VACCINE (1 of 2) 2006 LIPID TESTING 03/14/2015 03/14/2010 Respiratory Syncytial Virus (RSV) Vaccine Pt: or over 60 yrs (1 - Risk 60-74 years 1-dose series) 2016 MAMMOGRAM 11/20/2017 11/21/2015, 10/20, 11/08/2013, Additional history exists DTAP/TDAP/TD VACCINES (2 - Td or Tdap) 12/22/2019 12/21/2009 COLON MONITORING 12/22/2023 12/21/2020, , 11/16/2015, Additional history exists Colorectal Cancer Screening 12/22/2023 DEPRESSION SCREENING 04/21/2024 SCREENING FOR DIABETES 11/30/2024 02/07/2011, 2009 COVID-19 VACCINE ( season) 2024 INFLUENZA VACCINE (#1) 2024 01/19/2015, 2013 COLONOSCOPY - COLON CA SCREENING 12/21/2030 12/21/2020, 11/16/2015, 03/06/2012 BONE DENSITY TESTING Completed 01/30/2010 [...] cancer screening ENDOSCOPY, COLON, SCREENING Routine 11/16/2015 HEMOGLOBIN A1C - POINT OF CARE (AMB) Routine 02/07/2011 Hyperglycemia LIPID PROFILE 03/14/2010 9:24 AM MOTEL [employer]OD SERVICE SUPERVISOR DEXA BONE DENSITY 2 SITES Routine 01/30/2010 [...] in the care of your patient. [facility] utilizes [employer] ASO as a reminder system to notify patients of their next recommended mammogram. us Jason Cid MD MAMMO ORDERABLES Final Resul t * ENDOSCOPY, COLON, SCREENING (11/16/2015) us Provider Unknown GI PROCEDURE ORDERABLES Final R esult * HEMOGLOBIN A1C - POINT OF CARE (AMB) (02/07/2011) Pathologist [facility] Hemoglobin A1c POCT 6.0 <6.0 % QC Verified yes Yes Blood specimen (specimen) BLOOD SPECIMEN / Unknown Koffi Sharma MD LAB - POINT OF CARE ORDERABLE S Final Result * (ABNORMAL) LIPID PROFILE (03/14/2010 9:24 AM MOTEL FOOD SERVICE SUPERVISOR) Cholesterol 209(H) 125 - 200 mg/dL [facility] Comment: Test Performed at: [facility] [address] [place] [address] [employer]NAN [employer] DO,MPH HDL Cholesterol 47 > OR = 46 mg/dL [facility] Triglycerides 244(H) <150 mg/dL [facility] LDL Calculated 113 <130 mg/dL (calc) [facility] Comment: Desirable range <100 mg/dL for patients with CHD or diabetes and <70 mg/dL for diabetic patients with known heart disease. CHOL/HDLC RATIO 4.4 < OR = 5.0 (calc) [facility] 03/14/2010 9:24 AM MOTEL FOOD SERVICE SUPERVISOR 03/15/2010 12:46 AM MOTEL FOOD SERVICE SUPERVISOR Koffi Sharma MD LAB - CHEMISTRY ORDERABLES Fi nal Result Performing Organization Address City/State/[facility] Co de Phone Number [facility] [address] [place] [address] * DEXA BONE DENSITY 2 SITES (01/30/2010 [...] Recently Relevant to Health Maintenance Insurance MEDICARE [facility] Care Teams Fruit Harvest Machine Operator Relationship Specialty Start Date End Date Koffi Sharma MD [address] [place] [address] PCP - OBGYN 10/03/08 Maranda Trinidad APRN-AIR PLANT ENGINEER [address] [place] [address] PCP - General Nurse Practitioner 11/30/24 Patti Burris MD [address] [place] [address] Gastroenterology 11/21/15
== END 2025-02-04 09:33 | disposition home or self-care (01) ==
PROVIDERS: PCP Nurse Practitioner Family; Visit Provider Nurse Practitioner Family
DX: J98.6 Disorders of diaphragm (principal); K76.0 Fatty (change of) liver, not elsewhere classified; R16.0 Hepatomegaly, not elsewhere classified; K80.20 Calculus of gallbladder without cholecystitis without obstruction
CPT/HCPCS: 76705